=== PATIENT | male | born 1940 | race American Indian/Alaskan Native ===

== ENCOUNTER 2016-03-20 20:05 | Inpatient (IN) | payer MEDICARE ==
[2016-03-20] MEDS ORDERED: ASPIRIN PO ONE (20:35)
[2016-03-20 21:13] LABS: Basophils % (Auto) 0.3 % (0.0-1.8); Eosinophils % (Auto) 1.4 % (0.0-4.3); Hemoglobin 14.1 gm/dl (11.8-15.2); Mean Corpuscular HGB Conc 34 % (32-34); Mean Corpuscular Hemoglobin 29 pg (28-32); Mean Corpuscular Volume 87 fl (84-94); Platelet Count 195 K/mm3 (140-440); Red Blood Count 4.82 M/mm3 (3.65-5.03); Red Cell Distribution Width 14.5 % (13.2-15.2); White Blood Count 5.5 K/mm3 (4.5-11.0)
--- NOTE | 2016-03-20 21:16 | Emergency Department Report ---
ED Chest Pain HPI - General Chief Complaint: Arrhythmia/Palpitations Stated Complaint: PALPITATIONS Time Seen by Provider: 03/20/16 20:28 Source: patient, EMS Mode of arrival: Stretcher Limitations: No Limitations - History of Present Illness Initial Comments: 76-year-old male presents to the emergency department via EMS complaining of palpitations. Patient reports the acute onset of left-sided chest heaviness and palpitations at approximately 7 PM tonight. Pain does not radiate. He reports mild associated shortness of breath, dizziness, and diaphoresis. There was also some mild nausea. Patient denies vomiting or losing consciousness. At this time, the patient reports his symptoms have resolved. There are no other complaints. MD Complaint: chest pain -: Sudden, This evening Time: 19:00 Onset: during rest Pain Location: left chest Pain Radiation: none Severity: moderate Severity scale (0 -10): 0 Quality: heaviness Consistency: now resolved Improves With: nothing Worsens With: nothing re: nausea, diaphoresis, dyspnea Treatments Prior to Arrival: none Aspirin use within the Past 7 Days: (0) No - Related Data Allergies Allergy/AdvReac Type Severity Reaction Status Date / Time No Known Allergies Allergy Verified 03/20/16 20:48 JODIE score - Jodie Score Age > 65: (1) Yes Aspirin use within the Past 7 Days: (0) No 3 or more CAD Risk Factors: (1) Yes 2 or more Angina events in past 24 hrs: (0) No Known CAD with more than 50% Stenosis: (0) No Elevated Cardiac Markers: (0) No ST Deviation Greater than 0.5mm: (0) No JODIE Score: 2 ED Review of Systems ROS: Stated complaint: PALPITATIONS Other details as noted in HPI Comment: All other systems reviewed and negative Constitutional: diaphoresis Respiratory: shortness of breath Cardiovascular: chest pain, syncope (lightheadedness, no loss of consciousness) Gastrointestinal: nausea ED Past Medical Hx - Past Medical History Previous Medical History?: Yes Hx Hypertension: Yes Hx Heart Attack/AMI: Yes Hx Diabetes: Yes - Surgical History Past Surgical History?: Yes Hx Cholecystectomy: Yes Hx Appendectomy: Yes Additional Surgical History: Tonsillectomy - Family History Family history: no significant - Social History Smoking Status: Never Smoker Substance Use Type: None ED Physical Exam - General Limitations: No Limitations General appearance: alert, in no apparent distress - Head Head exam: Present: atraumatic, normocephalic - Eye Eye exam: Present: normal appearance, PERRL, EOMI - ENT ENT exam: Present: normal exam, normal orophraynx, mucous membranes moist - Neck Neck exam: Present: normal inspection, full ROM. Absent: tenderness - Respiratory Respiratory exam: Present: normal lung sounds bilaterally. Absent: respiratory distress - Cardiovascular Cardiovascular Exam: Present: normal rhythm, irregular rhythm, normal heart sounds - GI/Abdominal GI/Abdominal exam: Present: soft, normal bowel sounds. Absent: distended, tenderness - Extremities Exam Extremities exam: Present: normal inspection, full ROM. Absent: tenderness - Back Exam Back exam: Present: normal inspection, full ROM. Absent: tenderness - Neurological Exam Neurological exam: Present: alert, oriented X3. Absent: motor sensory deficit - Skin Skin exam: Present: warm, dry, intact ED Course Vital Signs 03/20/16 20:43 Temperature 98 F Pulse Rate 84 Respiratory 16 Rate Blood Pressure 144/78 O2 Sat by Pulse 95 Oximetry ED Medical Decision Making - Lab Data Result diagrams: 03/20/16 20:53 03/20/16 20:53 - EKG Data -: EKG Interpreted by Me EKG shows normal: sinus rhythm, QRS complexes, ST-T waves Rate: normal - EKG Data When compared to previous EKG there are: no significant change Interpretation: unchanged when compared t (08/31/2012), other (sinus rhythm with marked sinus arrhythmia, first-degree AV block and occasional PVCs) - Medical Decision Making Laboratory results reviewed and discussed with the patient. I spoke with Dr. Gomes, cardiology. Patient is to be admitted by the hospitalist. - Differential Diagnosis ACS, arrhythmia, near syncope Critical care attestation.: If time is entered above; I have spent that time in minutes in the direct care of this critically ill patient, excluding procedure time. ED Disposition Clinical Impression: Near syncope Chest pain Qualifiers: Chest pain type: precordial chest pain Qualified Code(s): R07.2 - Precordial pain Disposition: OP ADMITTED IP TO THIS HOSP Is pt being admited?: Yes Condition: Stable Instructions: Chest Pain (ED) Time of Disposition: 22:04
[2016-03-20 21:30] LABS: Alanine Aminotransferase 15 units/L (7-56); Albumin 3.8 g/dL (3.9-5); Albumin/Globulin Ratio 1.1 %; Alkaline Phosphatase 89 units/L (35-129); Anion Gap 17 mmol/L; BUN/Creatinine Ratio 11.11; Bilirubin,Total 0.8 mg/dL (0.1-1.2); Blood Urea Nitrogen 10 mg/dL (9-20); Calcium 9.4 mg/dL (8.4-10.2); Carbon Dioxide 28 mmol/L (22-30); Chloride 99.9 mmol/L (98-107); Glucose 99 mg/dL (75-100); Potassium 4.2 mmol/L (3.6-5.0); Sodium 141 mmol/L (137-145); Total Protein 7.3 g/dL (6.3-8.2)
--- NOTE | 2016-03-20 22:48 | Admit Criteria Form ---
Admission Criteria Documentation: CARDIOLOGY GRG Clinical Indications for Admission to Inpatient Care ( Place 'X' for any and all applicable criteria): Hospital admission is needed for appropriate care of the patient because of ANY ONE of the following (1): [ ] I. Hemodynamic instability as indicated by ALL of the following (1)(2)(3) (4)(5) [ ]a) Vital signs or other findings not as expected for chronic patient condition or baseline [ ]b) Instability indicated by ANY ONE of the following: [ ]i) Hypotension [ ]ii) Symptomatic Tachycardia unresponsive to treatment ( e.g., analgesia, fluids, sedation as indicated) [ ]iii) Inadequate perfusion indicated by ANY ONE of the following: [ ] 1) Lactic acidosis (> 2 mmol/L) [ ] 2) New abnormal capillary refill (> 3 seconds) [ ] 3) Reduced urine output [ ] 4) New altered mental status [ ]iv) Orthostatic vital sign changes unresponsive to treatment (e.g., fluids) [ ]v) IV inotropic or vasopressor medication required to maintain adequate blood pressure or perfusion [ ] II. Severe heart failure as indicated by ANY ONE of the following(17)(18) [ ]a) Respiratory distress [ ]b) Hypotension [ ]c) Anasarca (refractory to outpatient therapy) [ ]d) Cardiac arrhythmias of immediate concern [ ]e) Myocardial ischemia [ ] III. Cardiac arrhythmias or findings of immediate concern indicated by ANY ONE of the following (19)(20): [ ] a) Heart rhythms that are inherently dangerous or unstable indicated by ANY ONE of the following (21)(22)(23): [ ] i) Resuscitated ventricular fibrillation or cardiac arrest [ ] ii) Ventricular escape rhythm [ ] iii) Sustained ventricular tachycardia (30 seconds or more of ventricular rhythm at greater than 100 beats per minute) [ ] iv) Nonsustained ventricular tachycardia and ANY ONE of the following: [ ] 1) Suspected cardiac ischemia as cause or consequence of ventricular tachycardia [ ] 2) In setting of acute myocarditis [ ] b) Unstable cardiac conduction defects indicated by ANY ONE of the following(23)(24)(25) [ ] i) Type II second-degree atrioventricular block [ ]ii) Third-degree atrioventricular block [ ]iii) New-onset left bundle branch block with suspected myocardial ischemia [ ]c) Any heart rhythm and ANY ONE of the following (21)(22)(26)(27) (28) [ ] i) Continuous long-term ECG monitoring needed (e.g., initiation of drug requiring monitoring for more than 24 hours) [ ] ii) Patient has automatic implanted cardioverter defibrillator that is repeatedly firing, malfunctioning, or in need of immediate adjustment of settings beyond the scope of ambulatory or observation care [ ]d) Heart rhythms of concern due to ANY ONE of the following: [ ] i) Hypotension [ ] ii) Respiratory distress [ ] iii) Association with other significant symptoms (e.g., bradycardia with syncope or ongoing dizziness, supraventricular tachycardia with chest pain (14)(15)(17) [ ] IV. Monitoring for cardiac contusion beyond the scope of observation care needed [A](30)(31)(32) [ ] V. Surgical or device complication (e.g., valve replacement complication , pacemaker dysfunction) (35)(41)(44)(45)(46) [ ] . Inpatient palliative care needed. [B](49) Also use Inpatient Palliative Care Criteria [ ] VII. Nonbacterial thrombotic (marantic) endocarditis (36)(43)(47)(48) [X ] VIII. Cardiology condition, symptom, or finding for which emergency and observation care has failed or are not considered appropriate. [ ] IX. Acute valvular disease requiring inpatient as indicated by ANY ONE of the following (41) [ ]a) Acute valvular regurgitation (42) [ ]b) Noninfectious valvulitis (43) [ ]c) Obstructive valve thrombosis [ ]d) Paravalvular leak [ ]e) Other significant valvular disorder remaining after emergency or observation level of care (as appropriate) [ ]X. Pericardial disease requiring inpatient treatment as indicated by ANY ONE of the following (33)(34)(35)(36)(37) [ ]a) Suspected tamponade (38)(39)(40) [ ]b) Hemopericardium [ ]c) Other significant pericardial disorder remaining after emergency or observation level of care (as appropriate) [ ] XI. Cardiac ischemia beyond scope of emergency and observation care. [ ] XII. Hypertension requiring inpatient treatment as indicated by ANY ONE of the following (6)(7)(8) [ ]a) SBP greater than 220 mm Hg or DBP greater than 120 mmHg despite treatment [ ]b) SBP greater than 140 mm Hg or DBP greater than 100 mm Hg with evidence of acute end organ damage as indicated by ANY ONE of the following [ ] i) Altered mental status [ ] ii) Acute renal failure as indicated by new onset of ANY ONE of the following (9)(10)(11)(12)(13) [ ]1) 3-fold rise in serum creatinine from baseline [ ]2) Serum creatinine greater than 4 mg/dL ( 354 micromoles/L) with acute rise greater than 0.5 mg/dL (44.2 micromoles/L) [ ]3) Reduction of more than 75% in estimated glomerular filtration rate from baseline [ ]4) Estimated glomerular filtration rate less than 35 mL/min/1.73m2 (0.59 mL/sec/1.73m2) in child up to 18 years of age [ ]5) Cessation of urine output indicated by ALL of the following [ ]A. Adequate volume status [ ]B. Inadequate urine output as indicated by ANY ONE of the following [ ]a. Urine output less than 0.3 mL/kg/hr for 24 hours [ ]b. Anuria (urine output less than 0.1 mL/kg/hr) for 12 hours [ ] iii) Aortic dissection [ ] iv) Myocardial Ischemia [ ] v) Left ventricular heart failure [ ]vi) Retinal Hemorrhage [ ]vii) Other significant finding [ ]c) Hypertension in child requiring inpatient treatment as indicated by ALL of the following(14)(15)(16) [ ] i) Outpatient treatment not effective, not available, or not appropriate [ ]ii) SBP or DBP greater than 95th percentile for age [ ]iii) Evidence of acute end organ damage as indicated by ANY ONE of the following [ ]1) Altered mental status [ ]2) Acute renal failure as indicated by new onset of ANY ONE of the following(9)(10)(11)(12)(13) [ ]A. 3-fold rise in serum creatinine from baseline [ ]B. Serum creatinine greater than 4 mg/dL (354 micromoles/L) with acute rise greater than 0.5 mg/dL (44.2 micromoles/L) [ ]C. Reduction of more than 75% in estimated glomerular filtration rate from baseline [ ]D. Estimated glomerular filtration rate less than 35 mL/min/1.73m2 (0.59 mL/sec/1.73m2) in child up to 18 years of age [ ]E. Cessation of urine output indicated by ALL of the following [ ]a. Adequate volume status [ ]b. Inadequate urine output as indicated by ANY ONE of the following [ ]i) Urine output less than 0.3 mL/kg/hr for 24 hours [ ]ii) Anuria ( urine output less than 0.1 mL/kg/hr) for 12 hours [ ]3) Severe headache [ ]4) Visual disturbance [ ]5) Retinal hemorrhage [ ]6) Other significant finding [ ]XIII. Complications of transplanted heart indicated by ANY ONE of the following(61): [ ]a) Acute graft rejection requiring inpatient management (eg, intravenous immunosuppression)(62)(63) [ ]b) Acute graft heart failure indicated by ANY ONE of the following(64): [ ]i) Hemodynamic instability [ ]ii) Cardiac arrhythmias of immediate concern [ ]iii) Pulmonary edema that is very severe (eg, mechanical ventilation needed, imminent or likely, need for 100% oxygen to keep oxygen saturation above 90%) [ ]iv) Pulmonary edema that is persistent as indicated by ALL of the following: [ ]1) New need for oxygen therapy to keep oxygen saturation above 90% (or increased FiO2 need from baseline) [ ]2) Has not improved sufficiently with emergency department or observation care IV diuretics or other heart failure treatments[E] [ ]v) Altered mental status that is severe or persistent [ ]vi) Increased creatinine (new on laboratory test) with reduction of more than 50% in estimated glomerular filtration rate from baseline [ ]vii) Progressively (ongoing) rising creatinine (known from past laboratory test) with reduction of more than 25% in estimated glomerular filtration rate from baseline [ ]viii) Acute renal failure [ ]ix) Acute peripheral ischemia (eg, examination shows pulseless, cool, mottled, or cyanotic extremity) [ ]x) Pulmonary artery catheter monitoring needed [ ]xi) Other sign or symptom of heart failure requiring inpatient treatment (ie, too severe or not responsive to outpatient and observation care treatment) [ ]c) Infection requiring inpatient management (eg, Hemodynamic instability, need for intravenous antimicrobial treatment)(66)(67)(68)(69)(70) [ ]d) Cardiac allograft vasculopathy requiring inpatient management ( eg evidence of cardiac ischemia)(71) [ ]e) Other complication of transplanted heart (eg, stroke, severe pulmonary hypertension, severe valvular dysfunction) requiring inpatient management(72) The original [facility] [employer] content created by [facility] has been revised. The portions of the content which have been revised are identified through the use of italic text or in bold, and [facility] has neither reviewed nor approved the modified material. All other unmodified content is copyright [facility] [employer]. Please see references footnoted in the original [facility] [employer] edition 2016 Admission Criteria Met: Yes
[2016-03-21] MEDS ORDERED: SODIUM CHLORIDE FLUSH SYRINGE 10 ML IV PRN (00:43)
[2016-03-21] MEDS ORDERED: DULERA INHALATION SCH (00:45)
--- NOTE | 2016-03-21 00:49 | History and Physical Report ---
History of Present Illness Date of examination: 03/20/16 Date of admission: 03/20/16 22:05 Chief complaint: chest discomfort History of present illness: 76-year-old male presented to the emergency department via EMS complaining of palpitations. Patient reported the acute onset of left-sided chest heaviness and palpitations at approximately 7 PM tonight. Pain does not radiate. He reports mild associated shortness of breath, dizziness, and diaphoresis. There was also some mild nausea. Patient denies vomiting or losing consciousness. By the time the patient presented to the ED his symptoms have resolved. There are no other complaints. REVIEW OF SYSTEMS: GENERAL: no weight change, no fatigue, no fever HEAD: no head ache EYES: no blurry vision, no acute visual loss EARS: no hearing loss, no discharge, no earache NOSE: no stuffiness, no sneezing, no discharge MOUTH, THROAT AND NECK: no bleeding gums, no sore throat, no swollen neck CARDIAC: no palpitations, no dyspnea on exertion, no orthopnea, no PND, no edema , no chest pain RESPIRATORY: no shortness of breath, no wheeze, no cough, no sputum, no hemoptysis, no asthma GI: no decreased appetite, no nausea, no vomiting, no dysphagia, no diarrhea, no constipation, no abdominal pain URINARY: no change in frequency, no urgency, no polyuria, no hematuria, no incontinence MUSCULOSKELETAL: no muscle weakness, no pain, no joint stiffness NEUROLOGIC: no loss of sensation/numbness, no tingling, no tremors, no weakness/ paralysis HEMATOLOGIC: no anemia, no easy bruising SKIN: no rashes ENDOCRINE: no heat/cold intolerance, no polyuria, no polydipsia, no thyroid problems, no diabetes PSYCHIATRIC: no anxiety, no depression, no suicidal ideations Past History Past Medical History: hypertension, other (paranoia, borderline diabetes mellitus) Past Surgical History: cholecystectomy Social history: full code. denies: smoking, alcohol abuse, prescription drug abuse, IV drug use Family history: denies: CAD, stroke Medications and Allergies Allergies Allergy/AdvReac Type Severity Reaction Status Date / Time No Known Allergies Allergy Verified 03/20/16 20:48 Home Medications Medication Instructions Recorded Confirmed Last Taken Type Aspirin 81 mg PO DAILY 03/20/16 03/20/16 Unknown History Dulera 200 Mcg/5 Mcg Inhaler 200 mcg INHALATION PRN 03/20/16 03/20/16 Unknown History Indomethacin 50 mg PO QID 03/20/16 03/20/16 Unknown History LORazepam 1 mg PO TID 03/20/16 03/20/16 Unknown History Lisinopril 20 mg PO DAILY 03/20/16 03/20/16 Unknown History NIFEdipine 30 mg PO DAILY 03/20/16 03/20/16 Unknown History Vitamin D3 2,000 unit PO DAILY 03/20/16 03/20/16 Unknown History Active Meds: Active Medications Aspirin (Baby Aspirin) 81 mg PO QDAY MARTIN Docusate Sodium (Colace) 100 mg PO BID MARTIN Famotidine (Pepcid) 20 mg PO BID MARTIN Miscellaneous Medication (Dulera 200 Mcg/5 Mcg Inhaler) 200 mcg INHALATION PRN MARTIN Miscellaneous Medication (Lisinopril) 20 mg PO DAILY MARTIN Miscellaneous Medication (Lorazepam) 1 mg PO TID MARTIN Miscellaneous Medication (Nifedipine) 30 mg PO DAILY MARTIN Miscellaneous Medication (Vitamin D3) 2,000 unit PO DAILY MARTIN Sodium Chloride (Sodium Chloride Flush Syringe 10 Ml) 10 ml IV PRN PRN PRN Reason: LINE FLUSH Exam - Physical Exam Narrative exam: Not in cardiopulmonary distress. The patient is obese. Vital signs as documented. Head exam is unremarkable. No scleral icterus . Neck is without jugular venous distension, thyromegaly, or carotid bruits. Lungs are clear to auscultation. Cardiac exam reveals regular rate and Rhythm. First and second heart sounds normal. No murmurs, rubs or gallops. Abdominal exam reveals normal bowel sounds, no masses, no organomegaly and no aortic enlargement. Extremities are nonedematous and both femoral and pedal pulses are normal. CREDIT CHECKER: Alert and oriented 3. No focal weakness. - Constitutional Vitals: Temp Pulse Resp BP Pulse Ox 97.4 F L 74 18 131/93 97 03/21/16 00:21 03/21/16 00:21 03/21/16 00:21 03/21/16 00:21 03/21/16 00:21 Results - Labs CBC & Chem 7: 03/20/16 20:53 03/20/16 20:53 Labs: Laboratory Last Values WBC 5.5 K/mm3 (4.5-11.0) 03/20/16 20:53 RBC 4.82 M/mm3 (3.65-5.03) 03/20/16 20:53 Hgb 14.1 gm/dl (11.8-15.2) 03/20/16 20:53 Hct 42.0 % (35.5-45.6) 03/20/16 20:53 MCV 87 fl (84-94) 03/20/16 20:53 MCH 29 pg (28-32) 03/20/16 20:53 MCHC 34 % (32-34) 03/20/16 20:53 RDW 14.5 % (13.2-15.2) 03/20/16 20:53 Plt Count 195 K/mm3 (140-440) 03/20/16 20:53 Lymph % (Auto) 24.0 % (13.4-35.0) 03/20/16 20:53 [place] % (Auto) 13.5 % (0.0-7.3) H 03/20/16 20:53 Eos % (Auto) 1.4 % (0.0-4.3) 03/20/16 20:53 Baso % (Auto) 0.3 % (0.0-1.8) 03/20/16 20:53 Lymph # 1.3 K/mm3 (1.2-5.4) 03/20/16 20:53 [place] # 0.7 K/mm3 (0.0-0.8) 03/20/16 20:53 Eos # 0.1 K/mm3 (0.0-0.4) 03/20/16 20:53 Baso # 0.0 K/mm3 (0.0-0.1) 03/20/16 20:53 Seg Neutrophils % 60.8 % (40.0-70.0) 03/20/16 20:53 Seg Neutrophils # 3.4 K/mm3 (1.8-7.7) 03/20/16 20:53 Sodium 141 mmol/L (137-145) 03/20/16 20:53 Potassium 4.2 mmol/L (3.6-5.0) 03/20/16 20:53 Chloride 99.9 mmol/L (98-107) 03/20/16 20:53 Carbon Dioxide 28 mmol/L (22-30) 03/20/16 20:53 Anion Gap 17 mmol/L 03/20/16 20:53 BUN 10 mg/dL (9-20) 03/20/16 20:53 Creatinine 0.9 mg/dL (0.8-1.5) 03/20/16 20:53 Estimated GFR > 60 ml/min 03/20/16 20:53 BUN/Creatinine Ratio 11.11 % 03/20/16 20:53 Glucose 99 mg/dL (75-100) 03/20/16 20:53 Calcium 9.4 mg/dL (8.4-10.2) 03/20/16 20:53 Magnesium 2.0 mg/dL (1.7-2.3) 03/20/16 20:53 Total Bilirubin 0.8 mg/dL (0.1-1.2) 03/20/16 20:53 AST 24 units/L (5-40) 03/20/16 20:53 ALT 15 units/L (7-56) 03/20/16 20:53 Alkaline Phosphatase 89 units/L (35-129) 03/20/16 20:53 Troponin T < 0.010 ng/mL (0.00-0.029) 03/20/16 20:53 Total Protein 7.3 g/dL (6.3-8.2) 03/20/16 20:53 Albumin 3.8 g/dL (3.9-5) L 03/20/16 20:53 Albumin/Globulin Ratio 1.1 % 03/20/16 20:53 - Imaging and Cardiology EKG: image reviewed (SR , with first degree AVB with occasional PVCs) Assessment and Plan Assessment and plan: Chest discomfort to r/o acs HTN obesity - serial EKG send cardiac enzymes - [facility] - Aspirin - Restart his home blood pressure medications DVT prophylaxis: on Heparin Disposition: admit to telemetry VTE prophylaxis?: Chemical Plan of care discussed with patient/family: Yes
[2016-03-21 05:58] LABS: Creatine Kinase MB 1.9 ng/mL (0.0-4.0)
[2016-03-21 06:03] LABS: Creatine Kinase 101 units/L (55-170)
[2016-03-21] MEDS: BROVANA NEBU IH SCH ×2 (08:10→19:18)
[2016-03-21] MEDS: PULMICORT IH SCH ×2 (08:10→19:18)
[2016-03-21 08:23] LABS: Creatine Kinase MB 1.8 ng/mL (0.0-4.0)
[2016-03-21 08:24] LABS: Creatine Kinase 99 units/L (55-170)
[2016-03-21] MEDS: ATIVAN PO SCH ×3 (08:45→20:58)
[2016-03-21] MEDS: COLACE PO SCH ×2 (09:00→20:59)
[2016-03-21] MEDS: PROCARDIA XL PO SCH (09:00)
[2016-03-21] MEDS: VITAMIN D3 PO SCH (09:00)
[2016-03-21] MEDS: PEPCID PO SCH ×2 (09:00→21:00)
[2016-03-21] MEDS: ZESTRIL PO SCH (09:01)
--- NOTE | 2016-03-21 09:32 | Progress Note ---
Assessment and Plan Assessment and plan: 1. Chest pain serial trops negative, stress test in am 2. HTN well controlled, continue home meds 3. COPD stable, continue inhalers History Interval history: chest pain has now resolved, no complaints today. Hospitalist Physical - Constitutional Vitals: Temp Pulse Resp BP Pulse Ox 98.3 F 66 18 134/72 96 03/21/16 07:09 03/21/16 09:01 03/21/16 08:20 03/21/16 09:01 03/21/16 07:09 General appearance: Present: no acute distress - EENT Eyes: Present: PERRL, EOM intact ENT: hearing intact, clear oral mucosa, dentition normal - Neck Neck: Present: supple, normal ROM - Respiratory Respiratory effort: normal Respiratory: negative: CTA - Cardiovascular Rhythm: regular Heart Sounds: Present: S1 & S2 - Extremities Extremities: no ischemia, No edema Peripheral Pulses: within normal limits - Abdominal General gastrointestinal: soft, non-tender, non-distended - Integumentary Integumentary: Present: clear, warm, dry - Psychiatric Psychiatric: appropriate mood/affect - Neurologic Neurologic: CNII-XII intact, moves all extremities Results - Labs CBC & Chem 7: 03/20/16 20:53 03/20/16 20:53 Labs: Laboratory Last Values WBC 5.5 K/mm3 (4.5-11.0) 03/20/16 20:53 RBC 4.82 M/mm3 (3.65-5.03) 03/20/16 20:53 Hgb 14.1 gm/dl (11.8-15.2) 03/20/16 20:53 Hct 42.0 % (35.5-45.6) 03/20/16 20:53 MCV 87 fl (84-94) 03/20/16 20:53 MCH 29 pg (28-32) 03/20/16 20:53 MCHC 34 % (32-34) 03/20/16 20:53 RDW 14.5 % (13.2-15.2) 03/20/16 20:53 Plt Count 195 K/mm3 (140-440) 03/20/16 20:53 Lymph % (Auto) 24.0 % (13.4-35.0) 03/20/16 20:53 [place] % (Auto) 13.5 % (0.0-7.3) H 03/20/16 20:53 Eos % (Auto) 1.4 % (0.0-4.3) 03/20/16 20:53 Baso % (Auto) 0.3 % (0.0-1.8) 03/20/16 20:53 Lymph # 1.3 K/mm3 (1.2-5.4) 03/20/16 20:53 [place] # 0.7 K/mm3 (0.0-0.8) 03/20/16 20:53 Eos # 0.1 K/mm3 (0.0-0.4) 03/20/16 20:53 Baso # 0.0 K/mm3 (0.0-0.1) 03/20/16 20:53 Seg Neutrophils % 60.8 % (40.0-70.0) 03/20/16 20:53 Seg Neutrophils # 3.4 K/mm3 (1.8-7.7) 03/20/16 20:53 Sodium 141 mmol/L (137-145) 03/20/16 20:53 Potassium 4.2 mmol/L (3.6-5.0) 03/20/16 20:53 Chloride 99.9 mmol/L (98-107) 03/20/16 20:53 Carbon Dioxide 28 mmol/L (22-30) 03/20/16 20:53 Anion Gap 17 mmol/L 03/20/16 20:53 BUN 10 mg/dL (9-20) 03/20/16 20:53 Creatinine 0.9 mg/dL (0.8-1.5) 03/20/16 20:53 Estimated GFR > 60 ml/min 03/20/16 20:53 BUN/Creatinine Ratio 11.11 % 03/20/16 20:53 Glucose 99 mg/dL (75-100) 03/20/16 20:53 Calcium 9.4 mg/dL (8.4-10.2) 03/20/16 20:53 Magnesium 2.0 mg/dL (1.7-2.3) 03/20/16 20:53 Total Bilirubin 0.8 mg/dL (0.1-1.2) 03/20/16 20:53 AST 24 units/L (5-40) 03/20/16 20:53 ALT 15 units/L (7-56) 03/20/16 20:53 Alkaline Phosphatase 89 units/L (35-129) 03/20/16 20:53 Total Creatine Kinase 99 units/L (55-170) 03/21/16 06:50 CK-MB (CK-2) 1.8 ng/mL (0.0-4.0) 03/21/16 06:50 CK-MB (CK-2) Rel Index 1.8 (0-4) 03/21/16 06:50 Troponin T < 0.010 ng/mL (0.00-0.029) 03/21/16 06:50 Total Protein 7.3 g/dL (6.3-8.2) 03/20/16 20:53 Albumin 3.8 g/dL (3.9-5) L 03/20/16 20:53 Albumin/Globulin Ratio 1.1 % 03/20/16 20:53 Triglycerides 91 mg/dL (2-149) 03/21/16 00:03 Cholesterol 184 mg/dL (50-199) 03/21/16 00:03 LDL Cholesterol Direct 106 mg/dL (50-130) 03/21/16 00:03 HDL Cholesterol 60 mg/dL (40-59) H 03/21/16 00:03 Cholesterol/HDL Ratio 3.06 % 03/21/16 00:03
--- NOTE | 2016-03-21 10:03 | Consultation ---
History of Present Illness Consult date: 03/21/16 Consult reason: chest pain History of present illness: This is a 76 year old obese -[place] male who is presenting with substernal chest pain at rest. He denies any exertional chest pain. He denies any diaphoresis nausea or vomiting or radiation of pain. Pain was described as a 5/10. Past History Past Medical History: hypertension, other (paranoia, borderline diabetes mellitus) Past Surgical History: cholecystectomy Social history: full code. denies: smoking, alcohol abuse, prescription drug abuse, IV drug use Family history: denies: CAD, stroke Medications and Allergies Allergies Allergy/AdvReac Type Severity Reaction Status Date / Time No Known Allergies Allergy Verified 03/20/16 20:48 Home Medications Medication Instructions Recorded Confirmed Last Taken Type Aspirin 81 mg PO DAILY 03/20/16 03/20/16 Unknown History Dulera 200 Mcg/5 Mcg Inhaler 200 mcg INHALATION PRN 03/20/16 03/20/16 Unknown History Indomethacin 50 mg PO QID 03/20/16 03/20/16 Unknown History LORazepam 1 mg PO TID 03/20/16 03/20/16 Unknown History Lisinopril 20 mg PO DAILY 03/20/16 03/20/16 Unknown History NIFEdipine 30 mg PO DAILY 03/20/16 03/20/16 Unknown History Vitamin D3 2,000 unit PO DAILY 03/20/16 03/20/16 Unknown History Active Meds: Active Medications Arformoterol Tartrate (Brovana Nebu) 15 mcg [facility] Q12HRT [facility] Last Admin: 03/21/16 08:10 Dose: 15 mcg Aspirin (Baby Aspirin) 81 mg PO QDAY [facility] Budesonide (Pulmicort) 1 mg IH Q12HRT [facility] Last Admin: 03/21/16 08:10 Dose: 1 mg Cholecalciferol (Vitamin D3) 2,000 unit PO DAILY [facility] Last Admin: 03/21/16 09:00 Dose: 2,000 unit Docusate Sodium (Colace) 100 mg PO BID [facility] Last Admin: 03/21/16 09:00 Dose: 100 mg Famotidine (Pepcid) 20 mg PO BID [facility] Last Admin: 03/21/16 09:00 Dose: 20 mg Lisinopril (Zestril) 20 mg PO DAILY [facility] Last Admin: 03/21/16 09:01 Dose: 20 mg Lorazepam (Ativan) 1 mg PO TID [facility] Last Admin: 03/21/16 08:45 Dose: 1 mg Nifedipine (Procardia Xl) 30 mg PO DAILY [facility] Last Admin: 03/21/16 09:00 Dose: 30 mg Sodium Chloride (Sodium Chloride Flush Syringe 10 Ml) 10 ml IV PRN PRN PRN Reason: LINE FLUSH Review of Systems Cardiovascular: chest pain Physical Examination Vital Signs Temp Pulse Resp BP Pulse Ox 98 F 84 16 144/78 95 03/20/16 20:43 03/20/16 20:43 03/20/16 20:43 03/20/16 20:43 03/20/16 20:43 General appearance: no acute distress, obese HEENT: Positive: PERRL, Normocephaly, Mucus Membranes Moist Neck: Positive: neck supple, trachea midline. Negative: JVD/HJR Cardiac: Positive: Reg Rate and Rhythm, S1/S2, PMI, Laterally Displaced Lungs: Positive: clear to auscultation, No Wheeze, Rales, Rhonchi Neuro: Positive: Grossly Intact, No Lateralizing Findings Abdomen: Positive: Soft, Active Bowel Sounds Extremities: Present: normal. Absent: edema Results 03/20/16 20:53 03/20/16 20:53 Cardiac Enzymes 03/21/16 03/21/16 Range/Units 04:37 06:50 CK-MB (CK-2) 1.9 1.8 (0.0-4.0) ng/mL Lipids 03/21/16 Range/Units 00:03 Triglycerides 91 (2-149) mg/dL Cholesterol 184 (50-199) mg/dL HDL Cholesterol 60 H (40-59) mg/dL Cholesterol/HDL Ratio 3.06 % - EKG Interpretation EKG: sinus rhythm Assessment and Plan 1. Substernal chest pain rule out ischemic coronary artery disease. 2. Essential hypertension 3. Type 2 Diabetes Mellitus. 4. Obesity Plan. Patient is currently stable serial troponin levels are normal we will obtain an echocardiogram to assess global and regional LV function and myocardial perfusion stress imaging to rule out ischemic coronary artery disease
[2016-03-21] MEDS: DEEP SEA NS SCH ×2 (18:05→21:00)
[2016-03-22] MEDS ORDERED: TYLENOL PO PRN (06:35)
[2016-03-22] MEDS ORDERED: LEXISCAN IV ONE ×2 (07:59→08:09)
[2016-03-22] MEDS: PULMICORT IH SCH (08:12)
[2016-03-22] MEDS: BROVANA NEBU IH SCH (08:12)
[2016-03-22] MEDS ORDERED: BABY ASPIRIN PO SCH (10:00)
--- NOTE | 2016-03-22 10:17 | Progress Note ---
Assessment and Plan 1. Precordial chest pains. rule out ischemic CAD 2. Essential hypertension 3. Type 2 Diabetes Mellitus. 4. Obesity Plan. Patient is stable and Lexiscan MPI done tolerated well . Check results later. Subjective Date of service: 03/22/16 Principal diagnosis: Chest pains Interval history: No cardiac symptoms since last visit. Objective Vital Signs Temp Pulse Pulse Pulse Resp Resp BP 03/22/16 07:45 69 18 03/22/16 07:35 68 18 03/22/16 07:02 97.5 F L 66 20 132/81 03/22/16 06:00 57 L 03/22/16 04:53 98.2 F 62 18 141/84 03/21/16 23:57 97.6 F 94 H 20 149/90 03/21/16 19:59 97.7 F 74 18 128/86 03/21/16 19:40 64 20 03/21/16 19:19 74 20 03/21/16 16:32 97.2 F L 80 20 134/73 03/21/16 14:00 61 03/21/16 11:56 97.2 F L 78 20 132/70 Pulse Ox 03/22/16 07:45 03/22/16 07:35 03/22/16 07:02 97 03/22/16 06:00 03/22/16 04:53 98 03/21/16 23:57 96 03/21/16 19:59 98 03/21/16 19:40 03/21/16 19:19 03/21/16 16:32 97 03/21/16 14:00 03/21/16 11:56 96 - Physical Examination HEENT: Positive: PERRL, Normocephaly, Mucus Membranes Moist Neck: Positive: neck supple, trachea midline. Negative: JVD/HJR Cardiac: Positive: Regular Rate, S1/S2, PMI, Laterally Displaced Lungs: Positive: clear to auscultation, No Wheeze, Rales, Rhonchi Neuro: Positive: Grossly Intact, No Lateralizing Findings Abdomen: Positive: Soft, Active Bowel Sounds Extremities: Present: normal. Absent: edema - Imaging and Cardiology EKG: image reviewed (SR , with first degree AVB with occasional PVCs)
[2016-03-22] MEDS: PROCARDIA XL PO SCH (11:13)
[2016-03-22] MEDS: PEPCID PO SCH (11:13)
[2016-03-22] MEDS: COLACE PO SCH (11:14)
[2016-03-22] MEDS: ZESTRIL PO SCH (11:14)
[2016-03-22] MEDS: VITAMIN D3 PO SCH (11:14)
[2016-03-22 12:09] VITALS: BP 140/87
--- NOTE | 2016-03-22 12:57 | Discharge Summary ---
Providers - Providers Date of Admission: 03/20/16 22:05 Attending physician: MIRZA ENCISO MD 03/21/16 Consult to Cardiac Rehabilitation [CONS] Routine Reason For Exam: Phase I Primary care physician: GEOVANI ORTIZ MD Hospitalization Condition: Stable Hospital course: 76M w pmh of htn who presented with Chest pain. ACS was ruled out via serial troponins, he went on to have a stress test which was negative. Chest pain was most likely musculoskeletal, CP resolved during his hospital stay. Discharge Dx atypical chest pain htn Disposition: DISCHARGED TO HOME OR SELFCARE Time spent for discharge: 35 minutes Core Measure Documentation - Palliative Care Palliative Care/ Comfort Measures: Not Applicable - Core Measures Any of the following diagnoses?: none Exam - Constitutional Vitals: Temp Pulse Resp BP Pulse Ox 98.4 F 90 20 140/87 97 03/22/16 12:00 03/22/16 12:00 03/22/16 12:00 03/22/16 12:00 03/22/16 12:00 General appearance: Present: no acute distress, well-nourished - EENT Eyes: Present: PERRL ENT: hearing intact, clear oral mucosa - Neck Neck: Present: supple, normal ROM - Respiratory Respiratory effort: normal Respiratory: bilateral: CTA - Cardiovascular Heart Sounds: Present: S1 & S2. Absent: rub, click - Extremities Extremities: pulses symmetrical, No edema Peripheral Pulses: within normal limits - Abdominal General gastrointestinal: Present: soft, non-tender, non-distended, normal bowel sounds Male genitourinary: Present: normal - Integumentary Integumentary: Present: clear, warm, dry - Musculoskeletal Musculoskeletal: gait normal, strength equal bilaterally - Psychiatric Psychiatric: appropriate mood/affect, intact judgment & insight - Neurologic Neurologic: CNII-XII intact, moves all extremities Plan Follow up with: PRIMARY CAREMD [Primary Care Provider] - 3-5 Days
--- NOTE | 2016-03-23 21:20 | Treadmill Report ---
THALLIUM STRESS TEST LEFT VENTRICLE: Left ventricular chamber size is within normal. Perfusion study demonstrates fairly homogeneous uptake of the tracer in all segments, no significant defects identified. Gated analysis reports normal left ventricular systolic function, ejection fraction 58%. CONCLUSION: Normal myocardial perfusion study. JOB# [id number] CA/NTS
== END 2016-03-22 17:12 | disposition home or self-care (01) | DRG 313 ==
LOC: ED 20:05 → 4A 22:05
PROVIDERS: ADMIT Internal Medicine; ATTEND Internal Medicine
DX: R07.89 Other chest pain (principal); E11.9 Type 2 diabetes mellitus without complications; I10 Essential (primary) hypertension; J44.9 Chronic obstructive pulmonary disease, unspecified; E66.9 Obesity, unspecified; I25.2 Old myocardial infarction; Z90.89 Acquired absence of other organs; Z90.49 Acquired absence of other specified parts of digestive tract; Z68.27 Body mass index [BMI] 27.0-27.9, adult; Z79.899 Other long term (current) drug therapy
CPT/HCPCS: 36415; 78452; 80053; 80061; 82550; 82553; 82962; 83735; 84484; 85025; 93005; 93010; 93017; 94640; 99285; A9502; J2785

== ENCOUNTER 2020-12-22 01:40 | Emergency (ER) | payer MEDICARE ==
[2020-12-22 01:55] VITALS: BP 128/72
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
[2020-12-22 04:14] LABS: Basophils % (Auto) 0.3 % (0.0-1.8); Hematocrit 36.7 % (35.5-45.6); Hemoglobin 12.5 gm/dl (11.8-15.2); Lymphocytes # (Auto) 1.5 K/mm3 (1.2-5.4); Lymphocytes % (Auto) 38.5 % (13.4-35.0); Mean Corpuscular HGB Conc 34 % (32-34); Mean Corpuscular Volume 91 fl (84-94); Monocytes # (Auto) 0.5 K/mm3 (0.0-0.8); Platelet Count 165 K/mm3 (140-440); Red Blood Count 4.02 M/mm3 (3.65-5.03); Red Cell Distribution Width 14.3 % (13.2-15.2)
[2020-12-22 04:39] LABS: Alanine Aminotransferase 9 units/L (7-56); Albumin 3.9 g/dL (3.9-5); BUN/Creatinine Ratio 17; Blood Urea Nitrogen 15 mg/dL (9-20); Calcium 9.9 mg/dL (8.4-10.2); Hemolysis Index 7
[2020-12-22 04:44] LABS: Bilirubin,Direct < 0.2 mg/dL (0-0.2)
--- NOTE | 2020-12-22 04:44 | XRay Report ---
CHEST 2 VIEWS INDICATION / CLINICAL INFORMATION: sob. COMPARISON: 04/19/2016 FINDINGS: SUPPORT DEVICES: None. HEART / MEDIASTINUM: No significant abnormality. LUNGS / PLEURA: No significant pulmonary or pleural abnormality. No pneumothorax. ADDITIONAL FINDINGS: Metallic densities seen overlying the left inferior neck and left hemiabdomen, u nchanged. IMPRESSION: 1. No acute findings. Signer Name: Chucky Cook DO Signed: 12/22/2020 4:40 AM Workstation Name: [id number]
[2020-12-22 05:49] LABS: Bilirubin,Urine NEG (Negative); Blood,Urine NEG (Negative); Color,Urine Straw (Yellow); Protein,Urine <15 mg/dL mg/dL (Negative); Urobilinogen,Urine < 2.0 mg/dL (<2.0); WBC,Urine < 1.0 /HPF (0.0-6.0)
[2020-12-22 05:56] LABS: Amphetamine Screen,Urine PRESUMPTIVE NEGATIVE; Benzodiazepines Screen,Urine PRESUMPTIVE NEGATIVE; Cannabinoid Screen,Urine PRESUMPTIVE NEGATIVE; Cocaine Screen,Urine PRESUMPTIVE NEGATIVE; Methadone Screen,Urine PRESUMPTIVE NEGATIVE; Opiate Screen,Urine PRESUMPTIVE NEGATIVE
== END 2020-12-22 08:27 | disposition home or self-care (01) ==
LOC: ED 01:40
DX: R06.00 Dyspnea, unspecified (principal); I10 Essential (primary) hypertension; J45.909 Unspecified asthma, uncomplicated; Z90.49 Acquired absence of other specified parts of digestive tract; Z90.89 Acquired absence of other organs
CPT/HCPCS: 36415; 71046; 80048; 80076; 80307; 80320; 81001; 85025; 99283; G0480

== ENCOUNTER 2021-07-02 06:30 | Inpatient (IN) | payer MEDICARE, BC ==
[2021-07-02] MEDS ORDERED: SUCCINYLCHOLINE CHLORIDE 200 MG/10 ML INJ MDV ONE (06:36)
[2021-07-02] MEDS ORDERED: ETOMIDATE 20 MG/10 ML INJ IV ONE (06:36)
[2021-07-02] MEDS ORDERED: LIDOCAINE PF 100 MG/5 ML (CARDIAC SYRINGE) IV ONE ×2 (06:38→06:39)
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
[2021-07-02] MEDS ORDERED: LORazepam 2 MG/ML VIAL IV ONE (07:22)
[2021-07-02 07:56] LABS: ABG Base Excess 1.4 mmol/L (-2.0-3.0); ABG HCO3 25.8 mmol/L (20.0-26.0); ABG Methemoglobin 0.6 % (0.0-1.5); ABG Oxygen Saturation 99.6 % (95.0-99.0); ABG PCO2 40.3 mm Hg; ABG PH 7.426 pH Units (7.350-7.450); ABG PO2 575.4 mm Hg (80.0-90.0)
[2021-07-02] MEDS ORDERED: MIDAZOLAM/NS Drip 100mg/100ml 100 MG/100 ML BAG IV SCH (08:00)
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
[2021-07-02 08:16] LABS: Bilirubin,Urine NEG (Negative); Blood,Urine NEG (Negative); Color,Urine Yellow (Yellow); Protein,Urine <15 mg/dL mg/dL (Negative); Urobilinogen,Urine < 2.0 mg/dL (<2.0)
[2021-07-02 08:24] LABS: Amphetamine Screen,Urine Negative; Benzodiazepines Screen,Urine Negative; Cannabinoid Screen,Urine Negative; Cocaine Screen,Urine Negative; Methadone Screen,Urine Negative; Opiate Screen,Urine Negative
[2021-07-02] MEDS ORDERED: diphenhydrAMINE 50 MG/ML VIAL IV ONE (08:38)
[2021-07-02] MEDS ORDERED: diphenhydrAMINE 50 MG/ML VIAL ONE (08:39)
[2021-07-02 08:46] LABS: RBC,Urine < 1.0 /HPF (0.0-6.0); WBC,Urine < 1.0 /HPF (0.0-6.0)
--- NOTE | 2021-07-02 09:35 | Cat Scan Report ---
CT HEAD/BRAIN WO CON INDICATION / CLINICAL INFORMATION: 81 years Male; Altered mental status. TECHNIQUE: Routine CT head without contrast. All CT scans at this location are performed using CT dos e reduction for ALARA by means of automated exposure control. COMPARISON: 11/21/2011 FINDINGS: BRAIN / INTRACRANIAL CONTENTS: No acute hemorrhage, mass effect, midline shift, hydrocephalus, or acu te, large territorial infarct. Moderate cerebral and cerebellar atrophy. There are moderate areas of decreased attenuation in the white matter of the cerebral hemispheres. Th catherine are nonspecific findings and may be related to microangiopathy (hypertension, diabetes, atheroscl erosis), given the patient's age. It might be difficult to evaluate for small areas of ischemia witho ut diffusion imaging by MRI. CRANIOCERVICAL JUNCTION: No significant abnormality. ORBITS: No significant abnormality of visualized orbits. SINUSES / MASTOIDS: Visualized paranasal sinuses and mastoid air cells are essentially clear. Right n david tube and endotracheal tube are noted and partially imaged. ADDITIONAL FINDINGS: Atherosclerotic disease is seen in the anterior and posterior circulation. IMPRESSION: No acute intracranial process is identified. Moderate volume loss and chronic white matter changes which are likely appropriate for this person's age. Signer Name: Luke Melendez Jr, MD Signed: 07/02/2021 9:30 AM Workstation Name: [id number]
--- NOTE | 2021-07-02 10:49 | XRay Report ---
ABDOMEN 1 VIEW(S) INDICATION / CLINICAL INFORMATION: NG placement. COMPARISON: None available. FINDINGS: TUBES / LINES: NG tube tip and side port are in the proximal stomach. BOWEL GAS PATTERN: No significant abnormality. FREE AIR / EXTRALUMINAL GAS: None seen. ADDITIONAL FINDINGS: No significant additional findings. IMPRESSION: 1. NG tube tip and side port in the proximal stomach. Signer Name: Khoa Rivero MD Signed: 07/02/2021 10:44 AM Workstation Name: [id number]
[2021-07-02 11:22] LABS: Alanine Aminotransferase 11 units/L (7-56); Albumin 3.8 g/dL (3.9-5); BUN/Creatinine Ratio 17; Blood Urea Nitrogen 15 mg/dL (9-20); Calcium 9.8 mg/dL (8.4-10.2); Hemolysis Index 18
[2021-07-02 11:29] LABS: Basophils # (Auto) 0.1 K/mm3 (0.0-0.1); Basophils % (Auto) 1.3 % (0.0-1.8); Eosinophils % (Auto) 0.4 % (0.0-4.3); Hematocrit 35.9 % (35.5-45.6); Hemoglobin 12.2 gm/dl (11.8-15.2); Lymphocytes # (Auto) 1.4 K/mm3 (1.2-5.4); Lymphocytes % (Auto) 31.1 % (13.4-35.0); Mean Corpuscular HGB Conc 34 % (32-34); Mean Corpuscular Volume 90 fl (84-94); Monocytes # (Auto) 0.4 K/mm3 (0.0-0.8); Monocytes % (Auto) 8.5 % (0.0-7.3); Platelet Count 178 K/mm3 (140-440); Red Blood Count 4.01 M/mm3 (3.65-5.03)
[2021-07-02 11:36] LABS: Free T4 (Free Thyroxine) 1.34 ng/dL (0.76-1.46)
[2021-07-02 11:40] LABS: INR 0.99 (0.87-1.13)
[2021-07-02 11:41] LABS: Partial Thromboplastin Time 28.3 Sec. (24.2-36.6)
[2021-07-02 11:54] LABS: Creatine Kinase MB 2.2 ng/mL (0.0-4.0)
--- NOTE | 2021-07-02 14:07 | Consultation ---
History of Present Illness Consult date: 07/02/21 Requesting physician: RABIA COHN Reason for consult: other (Acute Hypoxemic Respiratory Failure) History of present illness: PULMONARY/CCM CONSULT NOTE (Full dictation # [id number]) Please see dictated notes for full details Medications and Allergies Allergies Allergy/AdvReac Type Severity Reaction Status Date / Time No Known Allergies Allergy Unverified 07/02/21 07:28 Home Medications Medication Instructions Recorded Confirmed Last Taken Type Aspirin [Adult Low Dose Aspirin EC] 81 mg PO DAILY 08/31/17 08/31/17 Unknown History Cholecalciferol (Vitamin D3) 2,000 unit PO QDAY 08/31/17 08/31/17 Unknown History [Vitamin D3] NIFEdipine XL [Procardia Xl] 30 mg PO HS 08/31/17 08/31/17 Unknown History Active Meds: Active Medications MIDAZOLAM/NS Drip 100mg/100ml (Midazolam/Ns Drip 100mg/100ml) 100 mg in 100 mls @ 1 mls/hr IV TITR MARTIN; Protocol Last Titration: 07/02/21 09:08 Dose: 2 mg/hr, 2 mls/hr Physical Examination Vital signs: Vital Signs Pulse BP Pulse Ox 51 L 149/75 100 07/02/21 07:02 07/02/21 07:02 07/02/21 07:02 Results - Laboratory Findings CBC and BMP: 07/02/21 10:45 07/02/21 10:45 ABG ABG pH 7.426 pH Units (7.350-7.450) 07/02/21 07:42 ABG pCO2 40.3 mm Hg 07/02/21 07:42 ABG pO2 575.4 mm Hg (80.0-90.0) H 07/02/21 07:42 ABG O2 Saturation 99.6 % (95.0-99.0) H 07/02/21 07:42 PT/INR, D-dimer PT 14.2 Sec. (12.2-14.9) 07/02/21 10:45 INR 0.99 (0.87-1.13) 07/02/21 10:45 Abnormal lab findings: Abnormal Labs 07/02/21 07/02/21 07/02/21 07:42 10:45 10:45 [place] % (Auto) 8.5 H ABG pO2 575.4 H ABG O2 Saturation 99.6 H ABG Hemoglobin 12.7 L Chloride 107.7 H Ammonia Total Protein 6.1 L Albumin 3.8 L 07/02/21 10:45 [place] % (Auto) ABG pO2 ABG O2 Saturation ABG Hemoglobin Chloride Ammonia 17.0 L Total Protein Albumin
[2021-07-02] MEDS ORDERED: IPRATROPIUM/ALBUTEROL SULFATE 3 ML AMPUL.NEB IH PRN (14:16)
[2021-07-02] MEDS ORDERED: MORPHINE 2 MG/1 ML INJ IV PRN (14:30)
[2021-07-02] MEDS ORDERED: PROMETHAZINE 25 MG RECT SUPP PR PRN (14:30)
[2021-07-02] MEDS ORDERED: ONDANSETRON 4 MG/2 ML INJ IV PRN (14:30)
[2021-07-02] MEDS ORDERED: METOCLOPRAMIDE 10 MG/2 ML INJ IV PRN (14:30)
[2021-07-02] MEDS ORDERED: ACETAMINOPHEN 325 MG TAB PO PRN (14:30)
[2021-07-02] MEDS ORDERED: HYDROmorphone 1 MG/1 ML INJ IV PRN (14:30)
[2021-07-02] MEDS ORDERED: SODIUM CHLORIDE 0.9% 1000 ML 1,000 ML IV SCH (14:30)
[2021-07-02] MEDS ORDERED: methylPREDNISolone Sod Succinate 125 MG/2 ML INJ IV SCH ×2 (15:00→16:00)
[2021-07-02] MEDS ORDERED: AZITHROMYCIN/NS 500 MG/250 ML 500 MG/250 ML BAG IV SCH (15:00)
[2021-07-02] MEDS: HEPARIN 5,000 UNIT/1 ML VIAL SUB-Q SCH ×2 (15:07→21:24)
[2021-07-02] MEDS: FAMOTIDINE 20 MG/2 ML INJ IV SCH ×2 (15:07→21:24)
[2021-07-02] MEDS ORDERED: cefTRIAXone/NS 2 GM/100 ML 2 GM/100 ML BAG IV SCH (15:30)
[2021-07-02] MEDS ORDERED: IPRATROPIUM/ALBUTEROL SULFATE 3 ML AMPUL.NEB IH SCH (16:00)
[2021-07-02] MEDS ORDERED: fentaNYL 100 MCG/2 ML INJ IV PRN (16:00)
[2021-07-02] MEDS ORDERED: MINERAL OIL/PETROLATUM, WHITE OPHTH OINT 3.5 GM OU PRN (16:00)
[2021-07-02] MEDS ORDERED: LIP THERAPY VASELINE TP PRN (16:00)
[2021-07-02] MEDS ORDERED: fentaNYL DRIP Premix 2,000 MCG/100 ML BAG IV SCH (16:00)
--- NOTE | 2021-07-02 16:47 | Consultation ---
History of Present Illness Consult date: 07/02/21 Requesting physician: VASQUEZ LOVELL Consult reason: cardiac arrest, other (CAD) History of present illness: Chief complaint: Altered mental This is a 81-year-old with unknown past medical history, who has been seen by us previously at the hospital, but does not follow with us outpatient presented to [facility] today via EMS for altered mental status. Information obtained from review of chart. Reportedly, EMS was called to his house when family found him unresponsive, snoring, on the couch. When he arrived to [facility] he was still unresponsive and unable to protect airway, so the decision was made to intubate him. Work-up in the emergency room reveals the patient is andres cardic, with heart rate in the 40s, troponins are negative x1, BNP is negative. Cardiology is consulted for CAD and cardiac arrest. Past History Past Medical History: other (unknown) Medications and Allergies Allergies Allergy/AdvReac Type Severity Reaction Status Date / Time No Known Allergies Allergy Unverified 07/02/21 07:28 Home Medications Medication Instructions Recorded Confirmed Last Taken Type Aspirin [Adult Low Dose Aspirin EC] 81 mg PO DAILY 08/31/17 08/31/17 Unknown History Cholecalciferol (Vitamin D3) 2,000 unit PO QDAY 08/31/17 08/31/17 Unknown History [Vitamin D3] NIFEdipine XL [Procardia Xl] 30 mg PO HS 08/31/17 08/31/17 Unknown History Active Meds: Active Medications Acetaminophen (Acetaminophen 325 Mg Tab) 650 mg PO Q4H PRN PRN Reason: Pain MILD(1-3)/Fever >100.5/URIAS Albuterol (Albuterol 2.5 Mg/3 Ml Nebu) 2.5 mg IH Q3HRT PRN PRN Reason: Wheezing Arformoterol Tartrate (Arformoterol 15 Mcg/2 Ml Nebu) 15 mcg IH Q12HRT MARTIN Budesonide (Budesonide 0.5 Mg/2 Ml Nebu) 0.5 mg IH Q12HRT MARTIN Famotidine (Famotidine 20 Mg/2 Ml Inj) 20 mg IV BID REPLACED BY [facility] Last Admin: 07/02/21 15:07 Dose: 20 mg Fentanyl (Fentanyl 100 Mcg/2 Ml Inj) 50 mcg IV Q10MIN PRN PRN Reason: ANALGESIA Heparin Sodium (Porcine) (Heparin 5,000 Unit/1 Ml Vial) 5,000 unit SUB-Q Q12HR MARTIN Last Admin: 07/02/21 15:07 Dose: 5,000 unit Hydromorphone HCl (Hydromorphone 1 Mg/1 Ml Inj) 0.5 mg IV Q3H PRN PRN Reason: Pain , Severe (7-10) Hydrophilic Ointment (Lip Therapy Vaseline) 1 applic TP Q2H PRN PRN Reason: Dry Lips MIDAZOLAM/NS Drip 100mg/100ml (Midazolam/Ns Drip 100mg/100ml) 100 mg in 100 mls @ 1 mls/hr IV TITR MARTIN; Protocol Last Titration: 07/02/21 09:08 Dose: 2 mg/hr, 2 mls/hr Sodium Chloride (Nacl 0.9% 1000 Ml) 1,000 mls @ 100 mls/hr IV DIRECT MARTIN Azithromycin (Zithromax/Ns) 500 mg in 250 mls @ 250 mls/hr IV Q24H MARTIN Ceftriaxone Sodium (Rocephin/Ns 2 Gm/100 Ml) 2 gm in 100 mls @ 200 mls/hr IV Q24H MARTIN; Protocol Last Admin: 07/02/21 15:07 Dose: 200 mls/hr Fentanyl Citrate (Fentanyl Drip Premix) 2,000 mcg in 100 mls @ 3.629 mls/hr IV TITR MARTIN; Protocol Methylprednisolone Sodium Succinate (Methylprednisolone Sod Succinate 40 Mg/1 Ml Inj) 40 mg IV Q12H MARTIN Metoclopramide HCl (Metoclopramide 10 Mg/2 Ml Inj) 10 mg IV Q6H PRN PRN Reason: Nausea And Vomiting Morphine Sulfate (Morphine 2 Mg/1 Ml Inj) 2 mg IV Q4H PRN PRN Reason: Pain, Moderate (4-6) Multi-Ingred Cream/Lotion/Oil/Oint (Mineral Oil/Petrolatum, White Ophth Oint 3.5 Gm) 1 applic OU Q4H PRN PRN Reason: Dry Eye(s) Ondansetron HCl (Ondansetron 4 Mg/2 Ml Inj) 4 mg IV Q8H PRN PRN Reason: Nausea And Vomiting Promethazine HCl (Promethazine 25 Mg Rect Supp) 25 mg NE Q6H PRN PRN Reason: N/V IF NPO AND NO IV ACCESS Senna/Docusate Sodium (Sennosides/Docusate Sodium 8.6/50 Mg Tab) 1 tab FEEDTUBE BID MARTIN Sodium Chloride (Sodium Chloride 0.9% 10 Ml Flush Syringe) 10 ml IV BID MARTIN Last Admin: 07/02/21 15:07 Dose: 10 ml Sodium Chloride (Sodium Chloride 0.9% 10 Ml Flush Syringe) 10 ml IV PRN PRN PRN Reason: LINE FLUSH Review of Systems ROS unobtainable: due to endotracheal tube, due to mental status Physical Examination Vital Signs Pulse BP Pulse Ox 51 L 149/75 100 07/02/21 07:02 07/02/21 07:02 07/02/21 07:02 General appearance: no acute distress HEENT: Positive: Mucus Membranes Dry Neck: Positive: trachea midline Cardiac: Positive: S1/S2, Bradycardia Lungs: Positive: Decreased Breath Sounds, Ventilated Respirations Neuro: Positive: Other (sedated ; unable to assess) Abdomen: Positive: Active Bowel Sounds Male genitourinary: Positive: deferred Skin: Negative: Rash Extremities: Present: +2 Edema (BLE), Cool (upper extremeties) Results 07/02/21 10:45 07/02/21 10:45 Cardiac Enzymes 07/02/21 Range/Units 10:45 AST 23 (5-40) units/L CK-MB (CK-2) 2.2 (0.0-4.0) ng/mL Coagulation 07/02/21 Range/Units 10:45 PT 14.2 (12.2-14.9) Sec. INR 0.99 (0.87-1.13) APTT 28.3 (24.2-36.6) Sec. CBC 07/02/21 Range/Units 10:45 WBC 4.5 (4.5-11.0) K/mm3 RBC 4.01 (3.65-5.03) M/mm3 Hgb 12.2 (11.8-15.2) gm/dl Hct 35.9 (35.5-45.6) % Plt Count 178 (140-440) K/mm3 Lymph # (Auto) 1.4 (1.2-5.4) K/mm3 [place] # (Auto) 0.4 (0.0-0.8) K/mm3 Eos # (Auto) 0.0 (0.0-0.4) K/mm3 Baso # (Auto) 0.1 (0.0-0.1) K/mm3 Comprehensive Metabolic Panel 07/02/21 Range/Units 10:45 Sodium 145 (137-145) mmol/L Potassium 4.1 (3.6-5.0) mmol/L Chloride 107.7 H (98-107) mmol/L Carbon Dioxide 25 (22-30) mmol/L BUN 15 (9-20) mg/dL Creatinine 0.9 (0.8-1.3) mg/dL Glucose 75 (75-100) mg/dL Calcium 9.8 (8.4-10.2) mg/dL AST 23 (5-40) units/L ALT 11 (7-56) units/L Alkaline Phosphatase 58 (35-129) units/L Total Protein 6.1 L (6.3-8.2) g/dL Albumin 3.8 L (3.9-5) g/dL - Imaging and Cardiology Echo: pending EKG: image reviewed (SB) EKG interpretations - Telemetry EKG Rhythm: Sinus Bradycardia - EKG Sinus rhythms and dysrhythmias: sinus bradycardia (no acute ischemic changes) Assessment and Plan Assessment: Altered Mental Status Acute respiratory failure Bradycardia- SB vs ? CHB ? History of psychiatric illness (per [facility] records) Cardiographics EKG 06/22/21-sinus bradycardia rate 56, prolonged NE interval, no acute ischemic changes. Chest x-ray 07/02/21-ET tube in expected position. There is blunting of the left costophrenic angle characteristic of a small amount of pleural fluid or pleural thickening. Echocardiogram (2017- ef 55-60%). Repeat echo pending Stress test-Lexiscan MPI 09/01/2017: Negative for acute ischemia Recommendations/plan: Check echocardiogram. Troponin negative x1. BNP negative. Electrolytes acceptable. Potassium 4.1, magnesium 2.2 TSH, free T4 acceptable limits. Avoid AV malika blocking agents Consider EP consultation if reversible causes not found for bradycardia Please call if patient becomes hemodynamically unstable. At this time BP acceptable. Thank you for this consultation, we will follow. Patient seen and examined with Dr. Avila, who agrees with assessment and plan of care of this patient. - Patient Problems (1) Altered mental status Current Visit: Yes Status: Acute
[2021-07-02] MEDS ORDERED: ALBUTEROL 2.5 MG/3 ML NEBU IH PRN (17:00)
--- NOTE | 2021-07-02 17:03 | Vascular Lab Report ---
DUPLEX DOPPLER LOWER EXTREMITY VEINS, BILATERAL INDICATION / CLINICAL INFORMATION: Lower extremity swelling; cardiac arrest. TECHNIQUE: Duplex doppler imaging was performed through the veins of both lower extremities using jad ous compression and other maneuvers. COMPARISON: None available. FINDINGS: RIGHT COMMON FEMORAL VEIN: Negative. RIGHT FEMORAL VEIN: Negative. RIGHT POPLITEAL VEIN: Negative. RIGHT CALF VEINS: Negative. LEFT COMMON FEMORAL VEIN: Negative. LEFT FEMORAL VEIN: Negative. LEFT POPLITEAL VEIN: Negative. LEFT CALF VEINS: Negative. ADDITIONAL FINDINGS: None. IMPRESSION: 1. No sonographic evidence for DVT in either lower extremity. Signer Name: Clay Romo MD Signed: 07/02/2021 4:59 PM Workstation Name: [id number]
[2021-07-02] MEDS: ARFORMOTEROL 15 MCG/2 ML NEBU IH SCH (19:56)
[2021-07-02] MEDS: BUDESONIDE 0.5 MG/2 ML NEBU IH SCH (19:56)
[2021-07-02] MEDS: SENNOSIDES/DOCUSATE SODIUM 8.6/50 MG TAB FEEDTUBE SCH (21:24)
[2021-07-03 04:27] LABS: Basophils % (Auto) 0.2 % (0.0-1.8); Hemoglobin 12.6 gm/dl (11.8-15.2); Lymphocytes # (Auto) 0.9 K/mm3 (1.2-5.4); Lymphocytes % (Auto) 11.1 % (13.4-35.0); Mean Corpuscular HGB Conc 34 % (32-34); Mean Corpuscular Volume 90 fl (84-94); Monocytes # (Auto) 0.4 K/mm3 (0.0-0.8); Monocytes % (Auto) 4.6 % (0.0-7.3); Platelet Count 166 K/mm3 (140-440); Red Blood Count 4.14 M/mm3 (3.65-5.03); Red Cell Distribution Width 14.8 % (13.2-15.2)
[2021-07-03] MEDS: methylPREDNISolone Sod Succinate 40 MG/1 ML INJ IV SCH ×2 (04:36→16:29)
[2021-07-03 04:46] LABS: Alanine Aminotransferase 9 units/L (7-56); Albumin 3.7 g/dL (3.9-5); BUN/Creatinine Ratio 16; Blood Urea Nitrogen 14 mg/dL (9-20); Calcium 9.2 mg/dL (8.4-10.2); Hemolysis Index 12
[2021-07-03 05:35] LABS: ABG Base Excess -0.3 mmol/L (-2.0-3.0); ABG HCO3 23.7 mmol/L (20.0-26.0); ABG Methemoglobin 0.7 % (0.0-1.5); ABG Oxygen Saturation 99.1 % (95.0-99.0); ABG PCO2 36.8 mm Hg; ABG PH 7.426 pH Units (7.350-7.450); ABG PO2 176.7 mm Hg (80.0-90.0)
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
--- NOTE | 2021-07-03 07:07 | XRay Report ---
CHEST 1 VIEW 07/03/2021 4:29 AM INDICATION / CLINICAL INFORMATION: follow up respiratory failure. COMPARISON: One view of the chest and KUB from 07/02/2021. FINDINGS: SUPPORT DEVICES: Unchanged. HEART / MEDIASTINUM: Stable. LUNGS / PLEURA: No significant pulmonary abnormality. There are small pleural effusions. No pneumotho rax. ADDITIONAL FINDINGS: No significant additional findings. IMPRESSION: 1. No new acute findings. 2. Additional findings as above. Signer Name: Rosales Weiss MD Signed: 07/03/2021 7:02 AM Workstation Name: [id number]
[2021-07-03] MEDS: ARFORMOTEROL 15 MCG/2 ML NEBU IH SCH ×2 (07:38→20:39)
[2021-07-03] MEDS: BUDESONIDE 0.5 MG/2 ML NEBU IH SCH ×2 (07:38→20:39)
[2021-07-03] MEDS ORDERED: POTASSIUM CHLORIDE 20 MEQ PACKET FEEDTUBE SCH (08:30)
[2021-07-03 09:57] LABS: ABG Base Excess -1.9 mmol/L (-2.0-3.0); ABG HCO3 22.8 mmol/L (20.0-26.0); ABG Methemoglobin 0.6 % (0.0-1.5); ABG Oxygen Saturation 99.2 % (95.0-99.0); ABG PCO2 38.6 mm Hg; ABG PH 7.389 pH Units (7.350-7.450); ABG PO2 184.8 mm Hg (80.0-90.0)
--- NOTE | 2021-07-03 10:36 | Progress Note ---
<JOLANTA SHEETS - Last Filed: 07/03/21 18:52> Assessment and Plan Assessment and plan: This is a 81-year-old male with known past medical history of HTN, Type 2 DM, possible COPD, and GERD admitted for decreased responsiveness requiring ventilatory support. Patient was also found in bradycardia with concern for possible heart block, cardiology is on consulted. Hospital Course to Date: 07/03: Patient is AAO, following commands, on the vent. Off sedation and tolerating PST. This am ABG and CXR noted. Plan for possible extubation today. Patient remains bradycardic this am, possible HB noted on the monitor, VSS. Cardiology is on consult, awaiting their recommendations. Will hold IV antiobio tic for now, patient remains afebrile with no leukocytosis, lactic and procal normal. Assessment and Plan #Acute Hypoxic Respiratory Failure #COPD with Exacerbation #Pleural Effusion - Found unresponsive at home, per family they started CPR - EMS found patient bradycardic and unresponsive - Patient was hypoxic at the time of arrival and also respiratory rate of about 8 - Patient was intubated in the ED for airway protection - AAO, following commands, tolerating PSV - Vent Setting: PSV- 35%,6 PS-10 - AM ABG noted - CCM consulted, appreciate recommendations - Continue IV Steroids and Nebs per CCM - No evidence of any infectious process, will hold empiric IV ABx for now - VAP bundle addressed - Aspiration precaution HOB above 30 - ABG and CXR per CCM - Continue SPO2 monitoring for SPO2 goal above 92% #Bradycardia, possible HB #HTN (hypertension) - Presented with bradycardia - initial EKG unremarkable, showing SB - Patient remains bradycardic this am, appear in HB on the monitor - Repeat EKG pending - BP stable - Cardiology on consult, awaiting recommendations - Continue blood pressure monitor per protocol - PRN antihypertensives for SBP greater than 160 #Acute Encephalopathy-improved - Etiology unclear - Urine drug screen negative, No focus of infection identified - CT head with no acute intracranial abnormality - Patient remains on the vent, off sedation this am - AAO and appriopriate, following commands - Avoid benzodiazepine to reduce the possibility of delirium - Prn analgesia for pain management - Maintenance of sleep-wake cycle #T2DM (type 2 diabetes mellitus) - Check hemoglobin A1c - BG check and SSI Q6hrs - Avoid hypoglycemia #GERD (Gastroesophageal Reflux Disease) - On PPI- Pepcid #Malnutrition - Currently intubated - Bedside swallow post extubation - Consider enteral nutrition if patient fail swallow - Nutrition consulted #DVT Prophylaxis - Heparin SubQ - SCDs to bilateral lower extremities while in bed The high probability of a clinically significant, sudden or life threatening deterioration of the [multiple] system(s) required my full and direct attention, intervention and personal management. The aggregate critical care time was [60] minutes. This time is in addition to time spent performing reported procedures but includes the following: [x] Data Review and interpretation [x] Patient assessment and monitoring of vital signs [x] Documentation [x] Medication orders and management Disposition Plan: ICU Total Time Spent with Patient (Minutes): 60 History Interval history: Patient seen and examined at the bedside. Intubated and off sedation, AAO, appriopriate, following commands. Tolerating PSV this am. EDGAR overnight Hospitalist Physical - Constitutional Vitals: Temp Pulse Resp BP Pulse Ox 97.8 F 42 L 13 155/84 100 07/03/21 07:17 07/03/21 08:00 07/03/21 08:00 07/03/21 08:00 07/03/21 08:00 General appearance: Present: no acute distress, well-nourished - EENT Eyes: Present: PERRL, EOM intact ENT: clear oral mucosa - Neck Neck: Present: normal ROM - Respiratory Respiratory effort: normal Respiratory: bilateral: diminished - Cardiovascular Rhythm: regular Heart Sounds: Present: S1 & S2 - Extremities Extremities: no ischemia, pulses intact, pulses symmetrical Extremity abnormal: edema - Peripheral Assessment Left Lower Extremity Edema Type: Non-pitting Edema Degree: 4+ Capillary Refill: < 3 seconds Skin Temperature: Warm Right Lower Extremity Edema Type: Non-pitting Edema Degree: 2+ Capillary Refill: < 3 seconds Skin Temperature: Warm Generalized Edema Type: Non-pitting Edema Degree: 1+ Capillary Refill: < 3 seconds Skin Temperature: Warm Peripheral Pulses: within normal limits - Abdominal General gastrointestinal: soft, non-distended, hypoactive bowel sounds - Integumentary Integumentary: Present: warm, dry - Psychiatric Psychiatric: appropriate mood/affect, cooperative - Neurologic Neurologic: CNII-XII intact, moves all extremities, other (Intubated, off sedation, AAO, following commands) - Allied Health Allied health notes reviewed: nursing HEART Score - HEART Score Troponin: Troponin T < 0.010 ng/mL (0.00-0.029) 07/02/21 10:45 Results - Labs CBC & Chem 7: 07/03/21 03:41 07/03/21 03:41 Labs: Laboratory Last Values WBC 7.7 K/mm3 (4.5-11.0) 07/03/21 03:41 RBC 4.14 M/mm3 (3.65-5.03) 07/03/21 03:41 Hgb 12.6 gm/dl (11.8-15.2) 07/03/21 03:41 Hct 37.0 % (35.5-45.6) 07/03/21 03:41 MCV 90 fl (84-94) 07/03/21 03:41 MCH 30 pg (28-32) 07/03/21 03:41 MCHC 34 % (32-34) 07/03/21 03:41 RDW 14.8 % (13.2-15.2) 07/03/21 03:41 Plt Count 166 K/mm3 (140-440) 07/03/21 03:41 Lymph % (Auto) 11.1 % (13.4-35.0) L 07/03/21 03:41 [place] % (Auto) 4.6 % (0.0-7.3) 07/03/21 03:41 Eos % (Auto) 0.0 % (0.0-4.3) 07/03/21 03:41 Baso % (Auto) 0.2 % (0.0-1.8) 07/03/21 03:41 Lymph # (Auto) 0.9 K/mm3 (1.2-5.4) L 07/03/21 03:41 [place] # (Auto) 0.4 K/mm3 (0.0-0.8) 07/03/21 03:41 Eos # (Auto) 0.0 K/mm3 (0.0-0.4) 07/03/21 03:41 Baso # (Auto) 0.0 K/mm3 (0.0-0.1) 07/03/21 03:41 Seg Neutrophils % 84.1 % (40.0-70.0) H 07/03/21 03:41 Seg Neutrophils # 6.5 K/mm3 (1.8-7.7) 07/03/21 03:41 PT 14.2 Sec. (12.2-14.9) 07/02/21 10:45 INR 0.99 (0.87-1.13) 07/02/21 10:45 APTT 28.3 Sec. (24.2-36.6) 07/02/21 10:45 ABG pH 7.389 pH Units (7.350-7.450) 07/03/21 Unknown ABG pCO2 38.6 mm Hg 07/03/21 Unknown ABG pO2 184.8 mm Hg (80.0-90.0) H 07/03/21 Unknown ABG HCO3 22.8 mmol/L (20.0-26.0) 07/03/21 Unknown ABG O2 Saturation 99.2 % (95.0-99.0) H 07/03/21 Unknown ABG O2 Content 17.5 (0.0-44) 07/03/21 Unknown ABG Base Excess -1.9 mmol/L (-2.0-3.0) 07/03/21 Unknown ABG Hemoglobin 12.5 gm/dl (14.0-18.0) L 07/03/21 Unknown ABG Carboxyhemoglobin 1.2 % (0.0-5.0) 07/03/21 Unknown ABG Methemoglobin 0.6 % (0.0-1.5) 07/03/21 Unknown Oxyhemoglobin 97.4 % (95.0-99.0) 07/03/21 Unknown FiO2 35 % 07/03/21 Unknown Sodium 146 mmol/L (137-145) H 07/03/21 03:41 Potassium 3.5 mmol/L (3.6-5.0) L 07/03/21 03:41 Chloride 107.3 mmol/L (98-107) H 07/03/21 03:41 Carbon Dioxide 24 mmol/L (22-30) 07/03/21 03:41 Anion Gap 18 mmol/L 07/03/21 03:41 BUN 14 mg/dL (9-20) 07/03/21 03:41 Creatinine 0.9 mg/dL (0.8-1.3) 07/03/21 03:41 Estimated GFR > 60 ml/min 07/03/21 03:41 BUN/Creatinine Ratio 16 % 07/03/21 03:41 Glucose 96 mg/dL (75-100) 07/03/21 03:41 POC Glucose 89 mg/dL (70-105) 07/02/21 23:42 Lactic Acid 1.60 mmol/L (0.7-2.0) 07/02/21 23:15 Calcium 9.2 mg/dL (8.4-10.2) 07/03/21 03:41 Magnesium 2.20 mg/dL (1.7-2.3) 07/02/21 10:45 Total Bilirubin 0.90 mg/dL (0.1-1.2) 07/03/21 03:41 AST 23 units/L (5-40) 07/03/21 03:41 ALT 9 units/L (7-56) 07/03/21 03:41 Alkaline Phosphatase 61 units/L (35-129) 07/03/21 03:41 Ammonia 17.0 umol/L (25-60) L 07/02/21 10:45 Total Creatine Kinase 85 units/L (55-170) 07/02/21 10:45 CK-MB (CK-2) 2.2 ng/mL (0.0-4.0) 07/02/21 10:45 CK-MB (CK-2) Rel Index 2.5 (0-4) 07/02/21 10:45 Troponin T < 0.010 ng/mL (0.00-0.029) 07/02/21 10:45 NT-Pro-B Natriuret Pep 449.0 pg/mL (0-900) 07/02/21 10:45 Total Protein 5.8 g/dL (6.3-8.2) L 07/03/21 03:41 Albumin 3.7 g/dL (3.9-5) L 07/03/21 03:41 Albumin/Globulin Ratio 1.8 % 07/03/21 03:41 TSH 3.350 mlU/mL (0.270-4.200) 07/02/21 10:45 Free T4 1.34 ng/dL (0.76-1.46) 07/02/21 10:45 Urine Color Yellow (Yellow) 07/02/21 Unknown Urine Turbidity Clear (Clear) 07/02/21 Unknown Urine pH 6.0 (5.0-7.0) 07/02/21 Unknown Ur Specific [place] 1.009 (1.003-1.030) 07/02/21 Unknown Urine Protein <15 mg/dl mg/dL (Negative) 07/02/21 Unknown Urine Glucose (UA) Neg mg/dL (Negative) 07/02/21 Unknown Urine Ketones Neg mg/dL (Negative) 07/02/21 Unknown Urine Blood Neg (Negative) 07/02/21 Unknown Urine Nitrite Neg (Negative) 07/02/21 Unknown Urine Bilirubin Neg (Negative) 07/02/21 Unknown Urine Urobilinogen < 2.0 mg/dL (<2.0) 07/02/21 Unknown Ur Leukocyte Esterase Neg (Negative) 07/02/21 Unknown Urine WBC (Auto) < 1.0 /HPF (0.0-6.0) 07/02/21 Unknown Urine RBC (Auto) < 1.0 /HPF (0.0-6.0) 07/02/21 Unknown Urine Opiates Screen Negative 07/02/21 Unknown Urine Methadone Screen Negative 07/02/21 Unknown Ur Barbiturates Screen Negative 07/02/21 Unknown Ur Phencyclidine Scrn Negative 07/02/21 Unknown Ur Amphetamines Screen Negative 07/02/21 Unknown U Benzodiazepines Scrn Negative 07/02/21 Unknown Urine Cocaine Screen Negative 07/02/21 Unknown U Marijuana (THC) Screen Negative 07/02/21 Unknown Drugs of Abuse Note Disclamer 07/02/21 Unknown Plasma/Serum Alcohol < 0.01 % (0-0.07) 07/02/21 10:45 Microbiology: Microbiology 07/02/21 07:18 Tracheal Aspirate Sputum Culture - Preliminary Taylor/IV: Voiding Method Indwelling Catheter Active Medications - Current Medications Current Medications: Generic Name Dose Route Start Last Admin Trade Name Freq PRN Reason Stop Dose Admin Acetaminophen 650 mg 07/02/21 14:30 Acetaminophen 325 Mg Tab PO Q4H PRN Pain MILD(1-3)/Fever >100.5/URIAS Albuterol 2.5 mg 07/02/21 17:00 Albuterol 2.5 Mg/3 Ml Nebu IH Q3HRT PRN Wheezing Arformoterol Tartrate 15 mcg 07/02/21 20:00 07/03/21 07:38 Arformoterol 15 Mcg/2 Ml Nebu IH 15 mcg Q12HRT MARTIN Administration Budesonide 0.5 mg 07/02/21 20:00 07/03/21 07:38 Budesonide 0.5 Mg/2 Ml Nebu IH 0.5 mg Q12HRT MARTIN Administration Famotidine 20 mg 07/02/21 15:00 07/02/21 21:24 Famotidine 20 Mg/2 Ml Inj IV 20 mg BID MARTIN Administration Fentanyl 50 mcg 07/02/21 16:00 Fentanyl 100 Mcg/2 Ml Inj IV Q10MIN PRN ANALGESIA Heparin Sodium (Porcine) 5,000 unit 07/02/21 15:00 07/02/21 21:24 Heparin 5,000 Unit/1 Ml Vial SUB-Q 5,000 unit Q12HR MARTIN Administration Hydromorphone HCl 0.5 mg 07/02/21 14:30 Hydromorphone 1 Mg/1 Ml Inj IV Q3H PRN Pain , Severe (7-10) Hydrophilic Ointment 1 applic 07/02/21 16:00 Lip Therapy Vaseline TP Q2H PRN Dry Lips MIDAZOLAM/NS Drip 100mg/100ml 100 mg in 100 mls @ 1 mls/hr 07/02/21 08:00 07/02/21 20:26 Midazolam/Ns Drip 100mg/100ml IV 0 mg/hr TITR MARTIN 0 mls/hr Titration Protocol 1 MG/HR Sodium Chloride 1,000 mls @ 100 mls/hr 07/02/21 14:30 07/03/21 00:32 Nacl 0.9% 1000 Ml IV 100 mls/hr DIRECT MARTIN Administration Azithromycin 500 mg in 250 mls @ 250 mls/hr 07/02/21 15:00 07/02/21 16:57 Zithromax/Ns IV 250 mls/hr Q24H MARTIN Administration Ceftriaxone Sodium 2 gm in 100 mls @ 200 mls/hr 07/02/21 15:30 07/02/21 15:07 Rocephin/Ns 2 Gm/100 Ml IV 200 mls/hr Q24H MARTIN Administration Protocol Fentanyl Citrate 2,000 mcg in 100 mls @ 3.629 mls/hr 07/02/21 16:00 07/02/21 20:26 Fentanyl Drip Premix IV 0 mcg/kg/hr TITR MARTIN 0 mls/hr Titration Protocol 1 MCG/KG/HR Methylprednisolone Sodium Succinate 40 mg 07/03/21 04:00 07/03/21 04:36 Methylprednisolone Sod Succinate 40 Mg/1 Ml Inj IV 40 mg Q12H MARTIN Administration Metoclopramide HCl 10 mg 07/02/21 14:30 Metoclopramide 10 Mg/2 Ml Inj IV Q6H PRN Nausea And Vomiting Morphine Sulfate 2 mg 07/02/21 14:30 Morphine 2 Mg/1 Ml Inj IV Q4H PRN Pain, Moderate (4-6) Multi-Ingred Cream/Lotion/Oil/Oint 1 applic 07/02/21 16:00 Mineral Oil/Petrolatum, White Ophth Oint 3.5 Gm OU Q4H PRN Dry Eye(s) Ondansetron HCl 4 mg 07/02/21 14:30 Ondansetron 4 Mg/2 Ml Inj IV Q8H PRN Nausea And Vomiting Potassium Chloride 40 meq 07/03/21 08:30 Potassium Chloride 20 Meq Packet FEEDTUBE 07/03/21 12:30 ONCE@0830 MARTIN Promethazine HCl 25 mg 07/02/21 14:30 Promethazine 25 Mg Rect Supp MS Q6H PRN N/V IF NPO AND NO IV ACCESS Senna/Docusate Sodium 1 tab 07/02/21 22:00 07/02/21 21:24 Sennosides/Docusate Sodium 8.6/50 Mg Tab FEEDTUBE 1 tab BID MARTIN Administration Sodium Chloride 10 ml 07/02/21 15:00 07/02/21 21:24 Sodium Chloride 0.9% 10 Ml Flush Syringe IV 10 ml BID MARTIN Administration Sodium Chloride 10 ml 07/02/21 14:30 Sodium Chloride 0.9% 10 Ml Flush Syringe IV PRN PRN LINE FLUSH <LAURA TERRAZAS - Last Filed: 07/08/21 07:32> Assessment and Plan Assessment and plan: I saw and evaluated the patient. I agree with the findings and the plan of care as documented in the Nurse Practitioner's~note, with the following corrections and additions. Hospitalist Physical - Constitutional Vitals: Temp Pulse Resp BP Pulse Ox 97.5 F L 47 L 18 150/74 99 07/08/21 03:28 07/08/21 03:28 07/08/21 03:28 07/08/21 03:28 07/08/21 03:28 HEART Score - HEART Score Troponin: Troponin T < 0.010 ng/mL (0.00-0.029) 07/02/21 10:45 Results - Labs CBC & Chem 7: 07/04/21 04:21 07/07/21 08:08 Labs: Laboratory Last Values WBC 8.6 K/mm3 (4.5-11.0) 07/04/21 04:21 RBC 3.91 M/mm3 (3.65-5.03) 07/04/21 04:21 Hgb 11.6 gm/dl (11.8-15.2) L 07/04/21 04:21 Hct 35.6 % (35.5-45.6) 07/04/21 04:21 MCV 91 fl (84-94) 07/04/21 04:21 MCH 30 pg (28-32) 07/04/21 04:21 MCHC 33 % (32-34) 07/04/21 04:21 RDW 15.1 % (13.2-15.2) 07/04/21 04:21 Plt Count 142 K/mm3 (140-440) 07/04/21 04:21 Lymph % (Auto) 11.1 % (13.4-35.0) L 07/03/21 03:41 [place] % (Auto) 4.6 % (0.0-7.3) 07/03/21 03:41 Eos % (Auto) 0.0 % (0.0-4.3) 07/03/21 03:41 Baso % (Auto) 0.2 % (0.0-1.8) 07/03/21 03:41 Lymph # (Auto) 0.9 K/mm3 (1.2-5.4) L 07/03/21 03:41 [place] # (Auto) 0.4 K/mm3 (0.0-0.8) 07/03/21 03:41 Eos # (Auto) 0.0 K/mm3 (0.0-0.4) 07/03/21 03:41 Baso # (Auto) 0.0 K/mm3 (0.0-0.1) 07/03/21 03:41 Seg Neutrophils % 84.1 % (40.0-70.0) H 07/03/21 03:41 Seg Neutrophils # 6.5 K/mm3 (1.8-7.7) 07/03/21 03:41 PT 14.2 Sec. (12.2-14.9) 07/02/21 10:45 INR 0.99 (0.87-1.13) 07/02/21 10:45 APTT 28.3 Sec. (24.2-36.6) 07/02/21 10:45 ABG pH 7.389 pH Units (7.350-7.450) 07/03/21 Unknown ABG pCO2 38.6 mm Hg 07/03/21 Unknown ABG pO2 184.8 mm Hg (80.0-90.0) H 07/03/21 Unknown ABG HCO3 22.8 mmol/L (20.0-26.0) 07/03/21 Unknown ABG O2 Saturation 99.2 % (95.0-99.0) H 07/03/21 Unknown ABG O2 Content 17.5 (0.0-44) 07/03/21 Unknown ABG Base Excess -1.9 mmol/L (-2.0-3.0) 07/03/21 Unknown ABG Hemoglobin 12.5 gm/dl (14.0-18.0) L 07/03/21 Unknown ABG Carboxyhemoglobin 1.2 % (0.0-5.0) 07/03/21 Unknown ABG Methemoglobin 0.6 % (0.0-1.5) 07/03/21 Unknown Oxyhemoglobin 97.4 % (95.0-99.0) 07/03/21 Unknown FiO2 35 % 07/03/21 Unknown Sodium 147 mmol/L (137-145) H 07/07/21 08:08 Potassium 4.5 mmol/L (3.6-5.0) 07/07/21 08:08 Chloride 109.2 mmol/L (98-107) H 07/07/21 08:08 Carbon Dioxide 29 mmol/L (22-30) 07/07/21 08:08 Anion Gap 13 mmol/L 07/07/21 08:08 BUN 21 mg/dL (9-20) H 07/07/21 08:08 Creatinine 0.8 mg/dL (0.8-1.3) 07/07/21 08:08 Estimated GFR > 60 ml/min 07/07/21 08:08 BUN/Creatinine Ratio 26 % 07/07/21 08:08 Glucose 86 mg/dL (75-100) 07/07/21 08:08 POC Glucose 157 mg/dL (70-105) H 07/07/21 21:22 Hemoglobin A1c 5.0 % (4-6) 07/04/21 04:21 Lactic Acid 1.60 mmol/L (0.7-2.0) 07/02/21 23:15 Calcium 9.5 mg/dL (8.4-10.2) 07/07/21 08:08 Phosphorus 3.60 mg/dL (2.5-4.5) 07/04/21 04:21 Magnesium 2.10 mg/dL (1.7-2.3) 07/04/21 04:21 Total Bilirubin 0.90 mg/dL (0.1-1.2) 07/03/21 03:41 AST 23 units/L (5-40) 07/03/21 03:41 ALT 9 units/L (7-56) 07/03/21 03:41 Alkaline Phosphatase 61 units/L (35-129) 07/03/21 03:41 Ammonia 17.0 umol/L (25-60) L 07/02/21 10:45 Total Creatine Kinase 85 units/L (55-170) 07/02/21 10:45 CK-MB (CK-2) 2.2 ng/mL (0.0-4.0) 07/02/21 10:45 CK-MB (CK-2) Rel Index 2.5 (0-4) 07/02/21 10:45 Troponin T < 0.010 ng/mL (0.00-0.029) 07/02/21 10:45 NT-Pro-B Natriuret Pep 449.0 pg/mL (0-900) 07/02/21 10:45 Total Protein 5.8 g/dL (6.3-8.2) L 07/03/21 03:41 Albumin 3.7 g/dL (3.9-5) L 07/03/21 03:41 Albumin/Globulin Ratio 1.8 % 07/03/21 03:41 Procalcitonin < 0.05 ng/mL (<0.15) 07/02/21 10:45 TSH 3.350 mlU/mL (0.270-4.200) 07/02/21 10:45 Free T4 1.34 ng/dL (0.76-1.46) 07/02/21 10:45 Urine Color Yellow (Yellow) 07/02/21 Unknown Urine Turbidity Clear (Clear) 07/02/21 Unknown Urine pH 6.0 (5.0-7.0) 07/02/21 Unknown Ur Specific [place] 1.009 (1.003-1.030) 07/02/21 Unknown Urine Protein <15 mg/dl mg/dL (Negative) 07/02/21 Unknown Urine Glucose (UA) Neg mg/dL (Negative) 07/02/21 Unknown Urine Ketones Neg mg/dL (Negative) 07/02/21 Unknown Urine Blood Neg (Negative) 07/02/21 Unknown Urine Nitrite Neg (Negative) 07/02/21 Unknown Urine Bilirubin Neg (Negative) 07/02/21 Unknown Urine Urobilinogen < 2.0 mg/dL (<2.0) 07/02/21 Unknown Ur Leukocyte Esterase Neg (Negative) 07/02/21 Unknown Urine WBC (Auto) < 1.0 /HPF (0.0-6.0) 07/02/21 Unknown Urine RBC (Auto) < 1.0 /HPF (0.0-6.0) 07/02/21 Unknown Urine Opiates Screen Negative 07/02/21 Unknown Urine Methadone Screen Negative 07/02/21 Unknown Ur Barbiturates Screen Negative 07/02/21 Unknown Ur Phencyclidine Scrn Negative 07/02/21 Unknown Ur Amphetamines Screen Negative 07/02/21 Unknown U Benzodiazepines Scrn Negative 07/02/21 Unknown Urine Cocaine Screen Negative 07/02/21 Unknown U Marijuana (THC) Screen Negative 07/02/21 Unknown Drugs of Abuse Note Disclamer 07/02/21 Unknown Plasma/Serum Alcohol < 0.01 % (0-0.07) 07/02/21 10:45 Coronavirus (PCR) Negative (Negative) 07/02/21 14:05 SARS-CoV-2 (PCR) Negative (Negative) 07/07/21 14:00 Taylor/IV: Voiding Method Indwelling Catheter Active Medications - Current Medications Current Medications: Generic Name Dose Route Start Last Admin Trade Name Freq PRN Reason Stop Dose Admin Acetaminophen 650 mg 07/02/21 14:30 Acetaminophen 325 Mg Tab PO Q4H PRN Pain MILD(1-3)/Fever >100.5/URIAS Albuterol 2.5 mg 07/02/21 17:00 Albuterol 2.5 Mg/3 Ml Nebu IH Q3HRT PRN Wheezing Arformoterol Tartrate 15 mcg 07/02/21 20:00 07/07/21 20:46 Arformoterol 15 Mcg/2 Ml Nebu IH 15 mcg Q12HRT MARTIN Administration Budesonide 0.5 mg 07/02/21 20:00 07/07/21 20:46 Budesonide 0.5 Mg/2 Ml Nebu IH 0.5 mg Q12HRT MARTIN Administration Famotidine 20 mg 07/04/21 10:00 07/07/21 14:43 Famotidine 20 Mg Tab PO 20 mg QDAY MARTIN Administration Heparin Sodium (Porcine) 5,000 unit 07/02/21 15:00 07/07/21 22:01 Heparin 5,000 Unit/1 Ml Vial SUB-Q Not Given Q12HR MARTIN Hydrophilic Ointment 1 applic 07/02/21 16:00 Lip Therapy Vaseline TP Q2H PRN Dry Lips Sodium Chloride 1,000 mls @ 75 mls/hr 07/05/21 04:30 07/08/21 02:13 Nacl 0.9% 1000 Ml IV 75 mls/hr DIRECT MARTIN Administration Metoclopramide HCl 10 mg 07/02/21 14:30 Metoclopramide 10 Mg/2 Ml Inj IV Q6H PRN Nausea And Vomiting Multi-Ingred Cream/Lotion/Oil/Oint 1 applic 07/02/21 16:00 Mineral Oil/Petrolatum, White Ophth Oint 3.5 Gm OU Q4H PRN Dry Eye(s) Ondansetron HCl 4 mg 07/02/21 14:30 Ondansetron 4 Mg/2 Ml Inj IV Q8H PRN Nausea And Vomiting Prednisone 40 mg 07/04/21 10:00 07/07/21 14:43 Prednisone 20 Mg Tab PO 40 mg QDAY MARTIN Administration Senna/Docusate Sodium 1 tab 07/02/21 22:00 07/07/21 22:02 Sennosides/Docusate Sodium 8.6/50 Mg Tab FEEDTUBE Not Given BID MARTIN Sodium Chloride 10 ml 07/02/21 15:00 07/07/21 22:02 Sodium Chloride 0.9% 10 Ml Flush Syringe IV Not Given BID MARTIN Sodium Chloride 10 ml 07/02/21 14:30 Sodium Chloride 0.9% 10 Ml Flush Syringe IV PRN PRN LINE FLUSH Tramadol HCl 50 mg 07/04/21 14:26 Tramadol 50 Mg Tab PO Q6H PRN Pain, Moderate (4-6) Nutrition/Malnutrition Assess - Dietary Evaluation Nutrition/Malnutrition Findings: Nutrition Notes Start: 07/03/21 11:15 Freq: Status: Active Protocol: Document 07/07/21 12:34 JEFF (Rec: 07/07/21 13:09 JEFF [id number]) Nutrition Notes Initial or Follow up Reassessment Current Diagnosis COPD,Coronary Artery Disease, Diabetes,Hypertension, Respiratory Failure, Malnutrition Other Pertinent Diagnosis Pleural Effusion, Bradycardia, GERD, s/p Cardiac Arrest w/ ROSC. Current Diet NPO (since 07/07 08:24), Consistent Carbohydrates Diet (will resume). Labs/Tests 07/07: Na 147, Cl 109.2, BUN 21. Pertinent Medications 07/07: Nutritionally unremarkable. Height 5 ft 8 in Weight 72.575 kg [place] Body Weight (kg) 70.00 BMI 24.3 Weight change and time frame No body weight change reported in 5 days. Weight Status Appropriate Subjective/Other Information RD consult for routine F/U on Dietary Advancement. No reports available on Pt's PO intake of meals at the time , will assess at F/U. Pt momentarily on NPO. Lexiscan stress test planned for 07/07; PO diet will resume after test. Pt passed bedside swallow screen test on 07/03. Pt on Room Air, O2 saturation @ 100%, according to Physiscal Assessment History notes. Pt has missing teeth, according to Physiscal Assessment History notes. Pt presents Pitting Edema 2+, according to Physiscal Assessment History notes. Pt will be discharged to SNF when clinically cleared, according to Social Work notes . Percent of energy/protein needs met: Pt momentarily on NPO. Prescribed Consistent Carbohydrates Diet provides for energy/protein needs (2, 061 Kcal/91 g) during LOS. Burn Absent Trauma Absent GI Symptoms None Food Allergy No Skin Integrity/Comment Assessment WNL. Minimum of two criteria No #1 Nutrition Diagnosis Inadequate energy intake Comments: Lexiscan stress test planned for 07/07; PO diet will resume after test. No reports available on Pt's PO intake of meals at the time. Diagnosis Progress(for reassessment Improved documentation) Is patient on ventilator? No Is Patient Ambulatory and/or Out of Bed No REE-([facility]-confined to bed) 3951.296 Calculation Used for Recommendations [facility] Additional Notes Protein: 1-1.2 g/Kg ABW; 73-87 g/day. Fluids: 1 ml/Kcal, or as per MD. Nutrition Intervention Change Diet Order: Resume Consistent Carbohydrates Diet after Stress Test. Goal #1 Maintain body weight within +/ -3% of admission body weight during LOS. Follow-Up By: 07/11/21 Additional Comments Continue monitoring food tolerance, %PO intake of meals , and BM.
[2021-07-03] MEDS: HEPARIN 5,000 UNIT/1 ML VIAL SUB-Q SCH ×2 (11:03→22:53)
[2021-07-03] MEDS: SENNOSIDES/DOCUSATE SODIUM 8.6/50 MG TAB FEEDTUBE SCH ×2 (11:03→22:53)
[2021-07-03] MEDS: FAMOTIDINE 20 MG/2 ML INJ IV SCH (11:03)
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
--- NOTE | 2021-07-03 13:43 | Progress Note ---
Assessment and Plan Cardiac arrest with ROSC Acute hypoxemic respiratory failure on MVS Small left pleural effusion Acute toxic metabolic encephalopathy DM II CAD HTN H/O Asthma H/O Gout H/O Prostate cancer - passed SBT - extubate - dopplers negative for DVT - 2D ECHO shows moderate to severe Pulm HTN (RVSP 59 mmHg on read) - continue care as below for now; - Daily SAT and SBT assessment as tolerated - accuchecks with glycemic control per SSI (While critically ill target blood glucose of 140-180 mg/dL; avoid hypoglycemia) - sedation prn for target RASS 0 to -1 - continue to wean supplemental oxygen for target O2 sat's > 90% acutely - VAP bundle addressed - continue lung protective strategies - continue bronchodilators with pulmonary hygiene per RT - wean per pulmonary driven protocols otherwise - avoid nephrotoxins, renally dose all medications - continue to avoid benzodiazepine's, reduce the possibility of delirium - AB's per ID rec's - prn analgesia per CPOT score - Maintenance of sleep-wake cycle, avoid delirium - continue enteral nutritional support at goal rate as tolerated - G.I. & VTE prophylaxis - PT/OT/ROM exercises - continue mobility protocols for pressure ulcer prophylaxis - Monitor hemodynamics closely - continue other care per attending / other consultants - discharge planning ongoing concurrently .... Re-evaluate in am & prn CONDITION: CRITICAL PROGNOSIS: GUARDED CODE STATUS: FULL CODE The high probability of a clinically significant, sudden or life-threatening deterioration of the [respiratory, cardiovascular & neurologic] system(s) required my full and direct attention, intervention and personal management. The aggregate critical care time was [34] minutes without overlap. Time includes spent on; [x] Data Review and interpretation [x] Patient assessment and monitoring of vital signs [x] Documentation [x] Medication orders and management Subjective Date of service: 07/03/21 Principal diagnosis: Cardiac arrest with ROSC; AHRF; AMS; DM II; CAD; H/O Prostate cancer Interval history: Patient is seen today for: Cardiac arrest with ROSC; AHRF; AMS; DM II; CAD; H/O Prostate cancer Seen and examined at bedside; 24hour events reviewed; nursing and respiratory care staff consulted; no adverse overnight events reported to me; resting in bed; passed SBT this morning very well; alert; denies N/V/F/C Objective Vital Signs - 12hr 07/03/21 07/03/2122 02:01 02:30 03:01 Temperature Pulse Rate 41 L 46 L 41 L Pulse Rate [ Anterior Bilateral Throughout] Respiratory 20 20 20 Rate Respiratory Rate [Anterior Bilateral Throughout] Blood Pressure 140/62 149/81 138/69 O2 Sat by Pulse 100 100 100 Oximetry 07/03/21 07/03/21 07/03/21 03:15 03:16 03:29 Temperature 98.8 F Pulse Rate 41 L Pulse Rate [ Anterior Bilateral Throughout] Respiratory 20 Rate Respiratory Rate [Anterior Bilateral Throughout] Blood Pressure O2 Sat by Pulse 100 Oximetry 07/03/21 07/03/21 07/03/21 03:31 04:01 04:27 Temperature Pulse Rate 44 L 43 L 44 L Pulse Rate [ Anterior Bilateral Throughout] Respiratory 20 21 Rate Respiratory Rate [Anterior Bilateral Throughout] Blood Pressure 146/70 142/69 147/69 O2 Sat by Pulse 100 100 100 Oximetry 07/03/21 07/03/21 07/03/21 04:31 05:00 05:31 Temperature Pulse Rate 42 L 61 50 L Pulse Rate [ Anterior Bilateral Throughout] Respiratory 20 17 21 Rate Respiratory Rate [Anterior Bilateral Throughout] Blood Pressure 147/67 141/75 149/63 O2 Sat by Pulse 100 100 100 Oximetry 07/03/21 07/03/21 07/03/21 06:01 06:31 07:01 Temperature Pulse Rate 37 L 44 L 55 L Pulse Rate [ Anterior Bilateral Throughout] Respiratory 20 17 16 Rate Respiratory Rate [Anterior Bilateral Throughout] Blood Pressure 129/74 134/84 149/74 O2 Sat by Pulse 100 100 100 Oximetry 07/03/21 07/03/21 07/03/21 07:17 07:31 07:45 Temperature 97.8 F Pulse Rate 46 L Pulse Rate [ Anterior Bilateral Throughout] Respiratory 21 20 Rate Respiratory Rate [Anterior Bilateral Throughout] Blood Pressure 148/71 O2 Sat by Pulse 100 100 Oximetry 07/03/21 07/03/21 07/03/21 07:46 07:50 08:00 Temperature Pulse Rate 46 L 66 60 Pulse Rate [ 57 L Anterior Bilateral Throughout] Respiratory 13 Rate Respiratory 20 Rate [Anterior Bilateral Throughout] Blood Pressure 150/72 155/84 155/84 O2 Sat by Pulse 100 100 100 Oximetry 07/03/21 07/03/21 07/03/21 08:30 09:00 09:31 Temperature Pulse Rate 68 64 48 L Pulse Rate [ Anterior Bilateral Throughout] Respiratory 13 14 14 Rate Respiratory Rate [Anterior Bilateral Throughout] Blood Pressure 156/75 138/73 144/72 O2 Sat by Pulse 100 100 100 Oximetry 07/03/21 07/03/21 07/03/21 10:01 10:31 11:01 Temperature Pulse Rate 58 L 56 L 65 Pulse Rate [ Anterior Bilateral Throughout] Respiratory 14 14 11 L Rate Respiratory Rate [Anterior Bilateral Throughout] Blood Pressure 138/76 136/72 132/73 O2 Sat by Pulse 100 100 100 Oximetry 07/03/21 07/03/21 07/03/21 11:31 11:50 12:00 Temperature 98.7 F Pulse Rate 59 L 74 Pulse Rate [ Anterior Bilateral Throughout] Respiratory 14 10 L Rate Respiratory Rate [Anterior Bilateral Throughout] Blood Pressure 134/77 154/83 O2 Sat by Pulse 100 100 Oximetry 07/03/21 12:30 Temperature Pulse Rate 55 L Pulse Rate [ Anterior Bilateral Throughout] Respiratory 15 Rate Respiratory Rate [Anterior Bilateral Throughout] Blood Pressure 133/65 O2 Sat by Pulse 100 Oximetry Constitutional: no acute distress Eyes: non-icteric ENT: oropharynx moist Neck: supple, no lymphadenopathy, no JVD Effort: normal Ascultation: Bilateral: clear, diminished breath sounds Percussion: Bilateral: not dull Cardiovascular: regular rate and rhythm Gastrointestinal: normoactive bowel sounds, soft, non-tender, non-distended Integumentary: normal Extremities: no cyanosis, pulses normal, no ischemia or petechiae Neurologic: non-focal exam (grossly), pupils equal and round, CN II-XII normal, motor strength normal and Psychiatric: mood appropriate, affect normal CBC and BMP: 07/04/21 04:21 07/04/21 04:21 ABG, PT/INR, D-dimer: ABG ABG pH 7.389 pH Units (7.350-7.450) 07/03/21 Unknown ABG pCO2 38.6 mm Hg 07/03/21 Unknown ABG pO2 184.8 mm Hg (80.0-90.0) H 07/03/21 Unknown ABG O2 Saturation 99.2 % (95.0-99.0) H 07/03/21 Unknown PT/INR, D-dimer PT 14.2 Sec. (12.2-14.9) 07/02/21 10:45 INR 0.99 (0.87-1.13) 07/02/21 10:45 Abnormal lab findings: Abnormal Labs 07/02/21 07/02/21 07/02/21 07:42 10:45 10:45 Lymph % (Auto) Mccone % (Auto) 8.5 H Lymph # (Auto) Seg Neutrophils % ABG pO2 575.4 H ABG O2 Saturation 99.6 H ABG Hemoglobin 12.7 L Sodium Potassium Chloride 107.7 H Ammonia Total Protein 6.1 L Albumin 3.8 L 07/02/21 07/03/21 07/03/21 10:45 03:41 03:41 Lymph % (Auto) 11.1 L Mccone % (Auto) Lymph # (Auto) 0.9 L Seg Neutrophils % 84.1 H ABG pO2 ABG O2 Saturation ABG Hemoglobin Sodium 146 H Potassium 3.5 L Chloride 107.3 H Ammonia 17.0 L Total Protein 5.8 L Albumin 3.7 L 07/03/21 07/03/21 05:05 Unknown Lymph % (Auto) Mccone % (Auto) Lymph # (Auto) Seg Neutrophils % ABG pO2 176.7 H 184.8 H ABG O2 Saturation 99.1 H 99.2 H ABG Hemoglobin 13.1 L 12.5 L Sodium Potassium Chloride Ammonia Total Protein Albumin Chest x-ray: image reviewed (no acute process) Allied health notes reviewed: nursing
--- NOTE | 2021-07-03 16:30 | Progress Note ---
Assessment and Plan Patient is a 81-year-old with unknown past medical history, who has been seen by us previously at the hospital, but does not follow with us outpatient presented to [facility] via EMS for altered mental status Altered Mental Status Acute respiratory failure Bradycardia- SB vs ? CHB ? History of psychiatric illness (per [facility] records) Echocardiogram (2017- ef 55-60%). Repeat echo pending Stress test-Lexiscan MPI 09/01/2017: Negative for acute ischemia Echo 07/02/2021-EF 55 to 60% mild diastolic dysfunction is present impaired relaxation pattern. Right ventricular systolic function is normal. Plan: EKG 06/22/21-sinus bradycardia rate 56, prolonged LA interval, no acute ischemic changes. Troponin negative x1. BNP negative. Electrolytes acceptable. Potassium 4.1, magnesium 2.2 TSH, free T4 acceptable limits. Avoid AV malika blocking agents Consider EP consultation if reversible causes not found for bradycardia and does not improve Please call if patient becomes hemodynamically unstable. At this time patiente remains hemodynamically stable. Will continue to follow Patient seen and examined with Dr. Avila, who agrees with assessment and plan of care of this patient. - Patient Problems (1) Altered mental status Current Visit: Yes Status: Acute (2) Acute encephalopathy Current Visit: Yes Status: Acute (3) Acute respiratory failure with hypoxia Current Visit: Yes Status: Acute (4) HTN (hypertension) Current Visit: Yes Status: Chronic Qualifiers: Hypertension type: primary hypertension Qualified Code(s): I10 - Essential (primary) hypertension (5) T2DM (type 2 diabetes mellitus) Current Visit: Yes Status: Chronic Qualifiers: Diabetes mellitus termite exterminator helper insulin use: unspecified senior care insulin use status Subjective Date of service: 07/03/21 Principal diagnosis: AMS/respiratroy failure, bradycardia Interval history: Patient was extubated and is awake alert and oriented denying any current complaints Patient remains sinus bradycardia 50s on monitor with sinus pauses and episodes into sinus 60s Objective Vital Signs Temp Pulse Pulse Resp Resp BP Pulse Ox 07/03/21 15:31 59 L 17 139/63 100 07/03/21 15:00 61 16 135/70 100 07/03/21 14:31 70 15 127/67 100 07/03/21 14:00 62 11 L 138/69 07/03/21 13:31 56 L 14 121/67 100 07/03/21 13:00 56 L 16 131/71 100 07/03/21 12:30 55 L 15 133/65 100 07/03/21 12:15 14 100 07/03/21 12:00 74 10 L 154/83 100 07/03/21 11:50 98.7 F 07/03/21 11:31 59 L 14 134/77 100 07/03/21 11:01 65 11 L 132/73 100 07/03/21 10:31 56 L 14 136/72 100 07/03/21 10:01 58 L 14 138/76 100 07/03/21 09:31 48 L 14 144/72 100 07/03/21 09:00 64 14 138/73 100 07/03/21 08:30 68 13 156/75 100 07/03/21 08:00 60 13 155/84 100 07/03/21 07:50 66 155/84 100 07/03/21 07:46 46 L 57 L 20 150/72 100 07/03/21 07:45 20 100 07/03/21 07:31 46 L 21 148/71 100 07/03/21 07:17 97.8 F 07/03/21 07:01 55 L 16 149/74 100 07/03/21 06:31 44 L 17 134/84 100 07/03/21 06:01 37 L 20 129/74 100 07/03/21 05:31 50 L 21 149/63 100 07/03/21 05:00 61 17 141/75 100 07/03/21 04:31 42 L 20 147/67 100 07/03/21 04:27 44 L 147/69 100 07/03/21 04:01 43 L 21 142/69 100 07/03/21 03:31 44 L 20 146/70 100 07/03/21 03:29 98.8 F 07/03/21 03:16 20 100 07/03/21 03:15 41 L 07/03/21 03:01 41 L 20 138/69 100 07/03/21 02:30 46 L 20 149/81 100 07/03/21 02:01 41 L 20 140/62 100 07/03/21 01:31 43 L 20 131/74 100 07/03/21 01:24 43 L 20 100 07/03/21 00:30 51 L 19 150/74 100 07/03/21 00:12 51 L 150/74 100 07/03/21 00:00 45 L 20 150/70 100 07/02/21 23:49 97.9 F 07/02/21 23:30 48 L 20 157/73 100 07/02/21 23:15 37 L 07/02/21 23:14 43 L 20 156/68 07/02/21 23:00 40 L 20 147/82 100 07/02/21 22:30 42 L 20 139/79 07/02/21 22:03 41 L 20 100 07/02/21 21:42 97.6 F 07/02/21 21:29 20 100 07/02/21 20:30 40 L 168/75 07/02/21 19:59 40 L 20 07/02/21 19:51 39 L 07/02/21 18:16 48 L 20 164/91 07/02/21 18:00 49 L 20 165/77 07/02/21 17:46 45 L 20 172/82 07/02/21 17:30 48 L 20 155/83 07/02/21 17:16 40 L 21 155/83 07/02/21 17:00 57 L 21 151/87 07/02/21 16:46 41 L 20 164/75 07/02/21 16:30 49 L 20 165/81 100 - Physical Examination General: No Apparent Distress HEENT: Positive: Normocephaly, Mucus Membranes Dry Neck: Positive: trachea midline Cardiac: Positive: Regular Rate, Regular Rhythm, Bradycardia Lungs: Positive: Decreased Breath Sounds Neuro: Positive: Grossly Intact Abdomen: Positive: Active Bowel Sounds Skin: Negative: Rash Extremities: Present: +2 Edema (BLE), Cool (upper extremeties) - Labs and Meds Cardiac Enzymes 07/03/21 Range/Units 03:41 AST 23 (5-40) units/L CBC 07/03/21 Range/Units 03:41 WBC 7.7 (4.5-11.0) K/mm3 RBC 4.14 (3.65-5.03) M/mm3 Hgb 12.6 (11.8-15.2) gm/dl Hct 37.0 (35.5-45.6) % Plt Count 166 (140-440) K/mm3 Lymph # (Auto) 0.9 L (1.2-5.4) K/mm3 [place] # (Auto) 0.4 (0.0-0.8) K/mm3 Eos # (Auto) 0.0 (0.0-0.4) K/mm3 Baso # (Auto) 0.0 (0.0-0.1) K/mm3 Comprehensive Metabolic Panel 07/03/21 Range/Units 03:41 Sodium 146 H (137-145) mmol/L Potassium 3.5 L (3.6-5.0) mmol/L Chloride 107.3 H (98-107) mmol/L Carbon Dioxide 24 (22-30) mmol/L BUN 14 (9-20) mg/dL Creatinine 0.9 (0.8-1.3) mg/dL Glucose 96 (75-100) mg/dL Calcium 9.2 (8.4-10.2) mg/dL AST 23 (5-40) units/L ALT 9 (7-56) units/L Alkaline Phosphatase 61 (35-129) units/L Total Protein 5.8 L (6.3-8.2) g/dL Albumin 3.7 L (3.9-5) g/dL - Imaging and Cardiology EKG: image reviewed (SB) Echo: report reviewed - Telemetry EKG Rhythm: Sinus Bradycardia - EKG Sinus rhythms and dysrhythmias: sinus bradycardia (no acute ischemic changes) - Allied health notes Allied health notes reviewed: nursing
[2021-07-04 05:09] LABS: Hematocrit 35.6 % (35.5-45.6); Hemoglobin 11.6 gm/dl (11.8-15.2); Mean Corpuscular HGB Conc 33 % (32-34); Mean Corpuscular Volume 91 fl (84-94); Platelet Count 142 K/mm3 (140-440); Red Blood Count 3.91 M/mm3 (3.65-5.03); Red Cell Distribution Width 15.1 % (13.2-15.2)
[2021-07-04 05:20] LABS: BUN/Creatinine Ratio 29; Blood Urea Nitrogen 26 mg/dL (9-20); Calcium 9.1 mg/dL (8.4-10.2); Hemolysis Index 11
[2021-07-04] MEDS: BUDESONIDE 0.5 MG/2 ML NEBU IH SCH ×2 (08:53→22:40)
[2021-07-04] MEDS: ARFORMOTEROL 15 MCG/2 ML NEBU IH SCH ×2 (08:53→22:40)
--- NOTE | 2021-07-04 10:25 | Progress Note ---
Assessment and Plan Assessment and plan: This is a 81-year-old male with known past medical history of HTN, Type 2 DM, possible COPD, and GERD admitted for decreased responsiveness requiring ventilatory support. Patient was also found in bradycardia with concern for possible heart block, cardiology is on consulted. Hospital Course to Date: 07/03: Patient is AAO, following commands, on the vent. Off sedation and tole rating PST. This am ABG and CXR noted. Plan for possible extubation today. Patient remains bradycardic this am, possible HB noted on the monitor, VSS. Cardiology is on consult, awaiting their recommendations. Will hold IV antiobiotic for now, patient remains afebrile with no leukocytosis, lactic and procal normal. 07/04: S/p extubation, stable on RA. Remains andres on the monitor, HR as low as 38 overnight, VSS. Awaiting Cardio final recommendation. Patient is stable for transfer to Telemetry once a bed is available. Assessment and Plan #Acute Hypoxic Respiratory Failure #COPD with Exacerbation #Pleural Effusion - Found unresponsive at home, per family they started CPR - EMS found patient bradycardic and unresponsive - Patient was hypoxic at the time of arrival and also respiratory rate of about 8 - Patient was intubated in the ED on 07/02 for airway protection - 07/03 s/p extubation, now stable on RA - CCM consulted, appreciate recommendations - Continue Steroids and Nebs per CCM - No evidence of any infectious process, will hold empiric IV ABx for now - Aspiration precaution HOB above 30 - PRN O2 supplementation - Continue SPO2 monitoring for SPO2 goal above 92% #Bradycardia, possible HB #HTN (hypertension) - Presented with bradycardia - initial EKG unremarkable, showing SB - Patient remains bradycardic this am,as low as 38 overnight, VSS - 12 lead EKG reveals SB - Cardiology on consult, awaiting recommendations - Continue blood pressure monitor per protocol - PRN antihypertensives for SBP greater than 160 #Acute Encephalopathy-resolved - Etiology unclear, probably due to bradycardia - Urine drug screen negative, No focus of infection identified - CT head with no acute intracranial abnormality - Patient remains on the vent, off sedation this am - AAO and appriopriate, following commands - Avoid benzodiazepine to reduce the possibility of delirium - Prn analgesia for pain management - Maintenance of sleep-wake cycle #T2DM (type 2 diabetes mellitus) - hemoglobin A1c- 5.0 - BG check and SSI Q6hrs - Avoid hypoglycemia #GERD (Gastroesophageal Reflux Disease) - On PPI- Pepcid #Malnutrition - Tolerated PO - Nutrition consulted for supplementation #DVT Prophylaxis - Heparin SubQ - SCDs to bilateral lower extremities while in bed The high probability of a clinically significant, sudden or life threatening deterioration of the [Respiratory, CV] system(s) required my full and direct attention, intervention and personal management. The aggregate critical care time was [40] minutes. This time is in addition to time spent performing reported procedures but includes the following: [x] Data Review and interpretation [x] Patient assessment and monitoring of vital signs [x] Documentation [x] Medication orders and management Disposition Plan: Transfer to The floor Total Time Spent with Patient (Minutes): 40 History Interval history: Patient seen and examined at the bedside. s/p extubation, currently stable on RA, fully AAO. Denied any pain nor any discomfort at this time. Patient remains Andres this am, HR dropped as low as 38 overnight, VSS Hospitalist Physical - Constitutional Vitals: Temp Pulse Resp BP Pulse Ox 98.5 F 56 L 18 126/70 100 07/04/21 04:00 07/04/21 08:53 07/04/21 08:53 07/04/21 06:01 07/04/21 06:01 General appearance: Present: no acute distress, well-nourished - EENT Eyes: Present: PERRL, EOM intact ENT: hearing intact, clear oral mucosa - Neck Neck: Present: normal ROM - Respiratory Respiratory effort: normal Respiratory: bilateral: diminished - Cardiovascular Rhythm: regular Heart Sounds: Present: S1 & S2 - Extremities Extremities: no ischemia, pulses intact, pulses symmetrical Extremity abnormal: edema - Peripheral Assessment Bilateral Lower Extremity Edema Type: Non-pitting Edema Degree: 3+ Capillary Refill: < 3 seconds Skin Temperature: Warm Peripheral Pulses: within normal limits - Abdominal General gastrointestinal: soft, non-distended, normal bowel sounds - Integumentary Integumentary: Present: warm, dry - Psychiatric Psychiatric: appropriate mood/affect, cooperative - Neurologic Neurologic: CNII-XII intact, moves all extremities - Allied Health Allied health notes reviewed: nursing, case management HEART Score - HEART Score Troponin: Troponin T < 0.010 ng/mL (0.00-0.029) 07/02/21 10:45 Results - Labs CBC & Chem 7: 07/04/21 04:21 07/04/21 04:21 Labs: Laboratory Last Values WBC 8.6 K/mm3 (4.5-11.0) 07/04/21 04:21 RBC 3.91 M/mm3 (3.65-5.03) 07/04/21 04:21 Hgb 11.6 gm/dl (11.8-15.2) L 07/04/21 04:21 Hct 35.6 % (35.5-45.6) 07/04/21 04:21 MCV 91 fl (84-94) 07/04/21 04:21 MCH 30 pg (28-32) 07/04/21 04:21 MCHC 33 % (32-34) 07/04/21 04:21 RDW 15.1 % (13.2-15.2) 07/04/21 04:21 Plt Count 142 K/mm3 (140-440) 07/04/21 04:21 Lymph % (Auto) 11.1 % (13.4-35.0) L 07/03/21 03:41 [place] % (Auto) 4.6 % (0.0-7.3) 07/03/21 03:41 Eos % (Auto) 0.0 % (0.0-4.3) 07/03/21 03:41 Baso % (Auto) 0.2 % (0.0-1.8) 07/03/21 03:41 Lymph # (Auto) 0.9 K/mm3 (1.2-5.4) L 07/03/21 03:41 [place] # (Auto) 0.4 K/mm3 (0.0-0.8) 07/03/21 03:41 Eos # (Auto) 0.0 K/mm3 (0.0-0.4) 07/03/21 03:41 Baso # (Auto) 0.0 K/mm3 (0.0-0.1) 07/03/21 03:41 Seg Neutrophils % 84.1 % (40.0-70.0) H 07/03/21 03:41 Seg Neutrophils # 6.5 K/mm3 (1.8-7.7) 07/03/21 03:41 PT 14.2 Sec. (12.2-14.9) 07/02/21 10:45 INR 0.99 (0.87-1.13) 07/02/21 10:45 APTT 28.3 Sec. (24.2-36.6) 07/02/21 10:45 ABG pH 7.389 pH Units (7.350-7.450) 07/03/21 Unknown ABG pCO2 38.6 mm Hg 07/03/21 Unknown ABG pO2 184.8 mm Hg (80.0-90.0) H 07/03/21 Unknown ABG HCO3 22.8 mmol/L (20.0-26.0) 07/03/21 Unknown ABG O2 Saturation 99.2 % (95.0-99.0) H 07/03/21 Unknown ABG O2 Content 17.5 (0.0-44) 07/03/21 Unknown ABG Base Excess -1.9 mmol/L (-2.0-3.0) 07/03/21 Unknown ABG Hemoglobin 12.5 gm/dl (14.0-18.0) L 07/03/21 Unknown ABG Carboxyhemoglobin 1.2 % (0.0-5.0) 07/03/21 Unknown ABG Methemoglobin 0.6 % (0.0-1.5) 07/03/21 Unknown Oxyhemoglobin 97.4 % (95.0-99.0) 07/03/21 Unknown FiO2 35 % 07/03/21 Unknown Sodium 145 mmol/L (137-145) 07/04/21 04:21 Potassium 4.3 mmol/L (3.6-5.0) D 07/04/21 04:21 Chloride 110.2 mmol/L (98-107) H 07/04/21 04:21 Carbon Dioxide 24 mmol/L (22-30) 07/04/21 04:21 Anion Gap 15 mmol/L 07/04/21 04:21 BUN 26 mg/dL (9-20) H 07/04/21 04:21 Creatinine 0.9 mg/dL (0.8-1.3) 07/04/21 04:21 Estimated GFR > 60 ml/min 07/04/21 04:21 BUN/Creatinine Ratio 29 % 07/04/21 04:21 Glucose 126 mg/dL (75-100) H 07/04/21 04:21 POC Glucose 115 mg/dL (70-105) H 07/03/21 16:37 Hemoglobin A1c 5.0 % (4-6) 07/04/21 04:21 Lactic Acid 1.60 mmol/L (0.7-2.0) 07/02/21 23:15 Calcium 9.1 mg/dL (8.4-10.2) 07/04/21 04:21 Phosphorus 3.60 mg/dL (2.5-4.5) 07/04/21 04:21 Magnesium 2.10 mg/dL (1.7-2.3) 07/04/21 04:21 Total Bilirubin 0.90 mg/dL (0.1-1.2) 07/03/21 03:41 AST 23 units/L (5-40) 07/03/21 03:41 ALT 9 units/L (7-56) 07/03/21 03:41 Alkaline Phosphatase 61 units/L (35-129) 07/03/21 03:41 Ammonia 17.0 umol/L (25-60) L 07/02/21 10:45 Total Creatine Kinase 85 units/L (55-170) 07/02/21 10:45 CK-MB (CK-2) 2.2 ng/mL (0.0-4.0) 07/02/21 10:45 CK-MB (CK-2) Rel Index 2.5 (0-4) 07/02/21 10:45 Troponin T < 0.010 ng/mL (0.00-0.029) 07/02/21 10:45 NT-Pro-B Natriuret Pep 449.0 pg/mL (0-900) 07/02/21 10:45 Total Protein 5.8 g/dL (6.3-8.2) L 07/03/21 03:41 Albumin 3.7 g/dL (3.9-5) L 07/03/21 03:41 Albumin/Globulin Ratio 1.8 % 07/03/21 03:41 Procalcitonin < 0.05 ng/mL (<0.15) 07/02/21 10:45 TSH 3.350 mlU/mL (0.270-4.200) 07/02/21 10:45 Free T4 1.34 ng/dL (0.76-1.46) 07/02/21 10:45 Urine Color Yellow (Yellow) 07/02/21 Unknown Urine Turbidity Clear (Clear) 07/02/21 Unknown Urine pH 6.0 (5.0-7.0) 07/02/21 Unknown Ur Specific [place] 1.009 (1.003-1.030) 07/02/21 Unknown Urine Protein <15 mg/dl mg/dL (Negative) 07/02/21 Unknown Urine Glucose (UA) Neg mg/dL (Negative) 07/02/21 Unknown Urine Ketones Neg mg/dL (Negative) 07/02/21 Unknown Urine Blood Neg (Negative) 07/02/21 Unknown Urine Nitrite Neg (Negative) 07/02/21 Unknown Urine Bilirubin Neg (Negative) 07/02/21 Unknown Urine Urobilinogen < 2.0 mg/dL (<2.0) 07/02/21 Unknown Ur Leukocyte Esterase Neg (Negative) 07/02/21 Unknown Urine WBC (Auto) < 1.0 /HPF (0.0-6.0) 07/02/21 Unknown Urine RBC (Auto) < 1.0 /HPF (0.0-6.0) 07/02/21 Unknown Urine Opiates Screen Negative 07/02/21 Unknown Urine Methadone Screen Negative 07/02/21 Unknown Ur Barbiturates Screen Negative 07/02/21 Unknown Ur Phencyclidine Scrn Negative 07/02/21 Unknown Ur Amphetamines Screen Negative 07/02/21 Unknown U Benzodiazepines Scrn Negative 07/02/21 Unknown Urine Cocaine Screen Negative 07/02/21 Unknown U Marijuana (THC) Screen Negative 07/02/21 Unknown Drugs of Abuse Note Disclamer 07/02/21 Unknown Plasma/Serum Alcohol < 0.01 % (0-0.07) 07/02/21 10:45 Coronavirus (PCR) Negative (Negative) 07/02/21 14:05 Microbiology: Microbiology 07/02/21 07:18 Tracheal Aspirate Sputum Culture - Preliminary Taylor/IV: Voiding Method Indwelling Catheter Active Medications - Current Medications Current Medications: Generic Name Dose Route Start Last Admin Trade Name Freq PRN Reason Stop Dose Admin Acetaminophen 650 mg 07/02/21 14:30 Acetaminophen 325 Mg Tab PO Q4H PRN Pain MILD(1-3)/Fever >100.5/URIAS Albuterol 2.5 mg 07/02/21 17:00 Albuterol 2.5 Mg/3 Ml Nebu IH Q3HRT PRN Wheezing Arformoterol Tartrate 15 mcg 07/02/21 20:00 07/04/21 08:53 Arformoterol 15 Mcg/2 Ml Nebu IH 15 mcg Q12HRT MARTIN Administration Budesonide 0.5 mg 07/02/21 20:00 07/04/21 08:53 Budesonide 0.5 Mg/2 Ml Nebu IH 0.5 mg Q12HRT MARTIN Administration Famotidine 20 mg 07/04/21 10:00 Famotidine 20 Mg Tab PO QDAY MARTIN Heparin Sodium (Porcine) 5,000 unit 07/02/21 15:00 07/03/21 22:53 Heparin 5,000 Unit/1 Ml Vial SUB-Q 5,000 unit Q12HR MARTIN Administration Hydromorphone HCl 0.5 mg 07/02/21 14:30 Hydromorphone 1 Mg/1 Ml Inj IV Q3H PRN Pain , Severe (7-10) Hydrophilic Ointment 1 applic 07/02/21 16:00 Lip Therapy Vaseline TP Q2H PRN Dry Lips Metoclopramide HCl 10 mg 07/02/21 14:30 Metoclopramide 10 Mg/2 Ml Inj IV Q6H PRN Nausea And Vomiting Morphine Sulfate 2 mg 07/02/21 14:30 Morphine 2 Mg/1 Ml Inj IV Q4H PRN Pain, Moderate (4-6) Multi-Ingred Cream/Lotion/Oil/Oint 1 applic 07/02/21 16:00 Mineral Oil/Petrolatum, White Ophth Oint 3.5 Gm OU Q4H PRN Dry Eye(s) Ondansetron HCl 4 mg 07/02/21 14:30 Ondansetron 4 Mg/2 Ml Inj IV Q8H PRN Nausea And Vomiting Prednisone 40 mg 07/04/21 10:00 Prednisone 20 Mg Tab PO QDAY MARTIN Promethazine HCl 25 mg 07/02/21 14:30 Promethazine 25 Mg Rect Supp CO Q6H PRN N/V IF NPO AND NO IV ACCESS Senna/Docusate Sodium 1 tab 07/02/21 22:00 07/03/21 22:53 Sennosides/Docusate Sodium 8.6/50 Mg Tab FEEDTUBE 1 tab BID MARTIN Administration Sodium Chloride 10 ml 07/02/21 15:00 07/03/21 22:54 Sodium Chloride 0.9% 10 Ml Flush Syringe IV 10 ml BID MARTIN Administration Sodium Chloride 10 ml 07/02/21 14:30 Sodium Chloride 0.9% 10 Ml Flush Syringe IV PRN PRN LINE FLUSH Nutrition/Malnutrition Assess - Dietary Evaluation Nutrition/Malnutrition Findings: Nutrition Notes Start: 07/03/21 11:15 Freq: Status: Active Protocol: Document 07/03/21 11:15 JEFF (Rec: 07/03/21 11:43 JEFF [id number]) Nutrition Notes Need for Assessment generated from: MD Order Initial or Follow up Assessment Current Diagnosis COPD,Diabetes,Hypertension, Respiratory Failure, Malnutrition Other Pertinent Diagnosis Acute Encephalopathy, Bradycardia, GERD. Current Diet NPO (since 07/02 00:01). Labs/Tests 07/03: Na 146, K 3.5, Cl 107.3 . Pertinent Medications 07/03: KCl 40 mEq, others nutritionally unremarkable. Height 5 ft 8 in Weight 72.575 kg Patrick Body Weight (kg) 70.00 BMI 24.3 Weight change and time frame None provided at admission. Weight Status Appropriate Subjective/Other Information RD consult for nutritional intake assessment. Pt currently on NPO. I recommend start TF when pertinent, prescription will be ready. Pt on Mechanical Ventilation, O2 saturation @ 100%, according to Physical Assessment History notes. Pt presents Bilateral LE Pitting Edema 2+, according to Physical Assessment History notes. Pt lives at home with family, according to Progress notes. Percent of energy/protein needs met: Pt currently on NPO. Burn Absent Trauma Absent GI Symptoms None Difficulty In Swallowing Food Allergy No Skin Integrity/Comment Assessment WNL. Current % PO Other Minimum of two criteria No #1 Nutrition Diagnosis Inadequate oral intake Etiology Pt on Mechanical Ventilation. As Evidenced by Signs and Symptoms Pt currently on NPO. Is patient on ventilator? Yes Is Patient Ambulatory and/or Out of Bed No REE-([facility]-confined to bed) 1687.296 Kcal/Kg value to use for calculation 25 Approximate Energy Requirements Using 1814 kcal/Kg Calculation Used for Recommendations Kcal/kg Additional Notes Protein: 1.2-2 g/Kg ABW; 84- 140 g/day. Fluids: 1 ml/Kcal, or as per MD. Nutrition Intervention Nutrition Support: When pertinent start Promote @ 75 ml/hr. Flush: 50 ml water Q 4 hr, or as per MD. Kcal 1,790 Protein (gm) 112 Carbohydrates (gm) 233 Fat (gm) 47 Fluid (mL) 1,502 Fiber (gm) 0 % RDI: 99% Kcal, 100% AA. Goal #1 Provide at least 75% of energy /protein needs through Enteral Feeding during LOS. Goal #2 Maintain body weight within +/ -3% of admission body weight during LOS. Follow-Up By: 07/04/21 Additional Comments When pertinent, start monitoring TF tolerance and BM .
[2021-07-04] MEDS: SENNOSIDES/DOCUSATE SODIUM 8.6/50 MG TAB FEEDTUBE SCH ×2 (10:56→22:30)
[2021-07-04] MEDS: HEPARIN 5,000 UNIT/1 ML VIAL SUB-Q SCH ×2 (10:57→22:30)
[2021-07-04] MEDS: FAMOTIDINE 20 MG TAB PO SCH (10:57)
[2021-07-04] MEDS: predniSONE 20 MG TAB PO SCH (10:57)
[2021-07-04] MEDS ORDERED: traMADol 50 MG TAB PO PRN (14:26)
--- NOTE | 2021-07-04 15:04 | Progress Note ---
Assessment and Plan Cardiac arrest with ROSC Acute hypoxemic respiratory failure on MVS Small left pleural effusion Acute toxic metabolic encephalopathy DM II CAD HTN H/O Asthma H/O Gout H/O Prostate cancer - prn supplemental oxygen to keep O2 sats > 90% - prn bronchodilators (ODILIA) with pulm hygiene per RT - continue to avoid nephrotoxins, renally dose all medications - mobility protocols to prevent pressure ulcers - PT/OT as tolerated - Wound care per RN/WCT - continue accuchecks with glycemic control per SSI for target blood glucose < 180 mg/dL - Smoking cessation strongly counseled at the bedside - home oxygen evaluation at discharge - GI & VTE prophylaxis - Flu & pneumovax per protocol - prn analgesia per pain score - Pulmonary out patient follow up for PFTs and optimization of respiratory statu s - continue other care per attending / other consultants ... re-evaluate in am & prn Subjective Date of service: 07/04/21 Principal diagnosis: Cardiac arrest with ROSC; AHRF; AMS; DM II; CAD; H/O Prostate cancer Interval history: Patient is seen today for: Cardiac arrest with ROSC; AHRF; AMS; DM II; CAD; H/O Prostate cancer Seen and examined at bedside; 24hour events reviewed; nursing and respiratory care staff consulted; no adverse overnight events reported to me; resting peacefully in bed; doing well so far post extubation; slept well; denies chest pain; denies N/V/F/C Objective Vital Signs - 12hr 07/04/21 07/04/21 07/04/21 03:31 04:00 04:01 Temperature 98.5 F Pulse Rate 42 L 44 L Pulse Rate [ Anterior Bilateral] Respiratory 13 14 13 Rate Respiratory Rate [Anterior Bilateral] Blood Pressure 110/59 121/61 O2 Sat by Pulse 99 100 99 Oximetry 07/04/21 07/04/21 07/04/21 04:31 05:01 05:31 Temperature Pulse Rate 48 L 66 49 L Pulse Rate [ Anterior Bilateral] Respiratory 13 12 14 Rate Respiratory Rate [Anterior Bilateral] Blood Pressure 126/70 126/70 126/70 O2 Sat by Pulse 98 99 99 Oximetry 07/04/21 07/04/21 06:01 08:53 Temperature Pulse Rate 38 L Pulse Rate [ 56 L Anterior Bilateral] Respiratory 14 Rate Respiratory 18 Rate [Anterior Bilateral] Blood Pressure 126/70 O2 Sat by Pulse 100 Oximetry Constitutional: no acute distress Eyes: non-icteric ENT: oropharynx moist Neck: supple, no lymphadenopathy, no JVD Effort: normal Ascultation: Bilateral: clear, diminished breath sounds Percussion: Bilateral: not dull Cardiovascular: regular rate and rhythm Gastrointestinal: normoactive bowel sounds, soft, non-tender, non-distended Integumentary: normal Extremities: no cyanosis, pulses normal, no ischemia or petechiae Neurologic: non-focal exam (grossly), pupils equal and round, CN II-XII normal, motor strength normal and Psychiatric: mood appropriate, affect normal CBC and BMP: 07/04/21 04:21 07/04/21 04:21 ABG, PT/INR, D-dimer: ABG ABG pH 7.389 pH Units (7.350-7.450) 07/03/21 Unknown ABG pCO2 38.6 mm Hg 07/03/21 Unknown ABG pO2 184.8 mm Hg (80.0-90.0) H 07/03/21 Unknown ABG O2 Saturation 99.2 % (95.0-99.0) H 07/03/21 Unknown PT/INR, D-dimer PT 14.2 Sec. (12.2-14.9) 07/02/21 10:45 INR 0.99 (0.87-1.13) 07/02/21 10:45 Abnormal lab findings: Abnormal Labs 07/02/21 07/02/21 07/02/21 07:42 10:45 10:45 Hgb Lymph % (Auto) [place] % (Auto) 8.5 H Lymph # (Auto) Seg Neutrophils % ABG pO2 575.4 H ABG O2 Saturation 99.6 H ABG Hemoglobin 12.7 L Sodium Potassium Chloride 107.7 H BUN Glucose POC Glucose Ammonia Total Protein 6.1 L Albumin 3.8 L 07/02/21 07/03/21 07/03/21 10:45 03:41 03:41 Hgb Lymph % (Auto) 11.1 L [place] % (Auto) Lymph # (Auto) 0.9 L Seg Neutrophils % 84.1 H ABG pO2 ABG O2 Saturation ABG Hemoglobin Sodium 146 H Potassium 3.5 L Chloride 107.3 H BUN Glucose POC Glucose Ammonia 17.0 L Total Protein 5.8 L Albumin 3.7 L 07/03/21 07/03/21 07/03/21 05:05 16:37 Unknown Hgb Lymph % (Auto) [place] % (Auto) Lymph # (Auto) Seg Neutrophils % ABG pO2 176.7 H 184.8 H ABG O2 Saturation 99.1 H 99.2 H ABG Hemoglobin 13.1 L 12.5 L Sodium Potassium Chloride BUN Glucose POC Glucose 115 H Ammonia Total Protein Albumin 07/04/21 07/04/21 04:21 04:21 Hgb 11.6 L Lymph % (Auto) [place] % (Auto) Lymph # (Auto) Seg Neutrophils % ABG pO2 ABG O2 Saturation ABG Hemoglobin Sodium Potassium Chloride 110.2 H BUN 26 H Glucose 126 H POC Glucose Ammonia Total Protein Albumin Allied health notes reviewed: nursing
--- NOTE | 2021-07-04 15:55 | Progress Note ---
Assessment and Plan Patient is a 81-year-old with unknown past medical history, who has been seen by us previously at the hospital, but does not follow with us outpatient presented to [facility] via EMS for altered mental status Altered Mental Status Acute respiratory failure Bradycardia- SB vs ? CHB ? History of psychiatric illness (per [facility]) Echocardiogram (2017- ef 55-60%). Repeat echo pending Stress test-Lexiscan MPI 09/01/2017: Negative for acute ischemia Echo 07/02/2021-EF 55 to 60% mild diastolic dysfunction is present impaired relaxation pattern. Right ventricular systolic function is normal. Plan: EKG 06/22/21-sinus bradycardia rate 56, prolonged DC interval, no acute ischemic changes. Troponin negative x1. BNP negative. Electrolytes acceptable. Potassium 4.1, magnesium 2.2 Avoid AV malika blocking agents Consider EP consultation if reversible causes not found for bradycardia and does not improve Please call if patient becomes hemodynamically unstable. At this time patiente remains hemodynamically stable. Will plan for Lexiscan MPI stress test on Wednesday Patient seen and examined with Dr. Avila, who agrees with assessment and plan of care of this patient. - Patient Problems (1) Altered mental status Current Visit: Yes Status: Acute (2) Acute encephalopathy Current Visit: Yes Status: Acute (3) Acute respiratory failure with hypoxia Current Visit: Yes Status: Acute (4) HTN (hypertension) Current Visit: Yes Status: Chronic Qualifiers: Hypertension type: primary hypertension Qualified Code(s): I10 - Essential (primary) hypertension (5) T2DM (type 2 diabetes mellitus) Current Visit: Yes Status: Chronic Qualifiers: Diabetes mellitus parts counterman insulin use: unspecified penitentiary insulin use status Subjective Date of service: 07/04/21 Principal diagnosis: Cardiac arrest with ROSC; AHRF; AMS; DM II; CAD; H/O Prostate cancer Interval history: Patient seen chair in no acute distress. Patient family member at bedside Patient remains sinus bradycardia 50s on monitor and episodes into sinus 40s and 60s Objective Vital Signs Temp Pulse Pulse Pulse Resp Resp BP 07/04/21 15:30 49 L 14 155/72 07/04/21 15:00 47 L 11 L 160/87 07/04/21 14:30 50 L 14 140/72 07/04/21 14:22 74 136/80 07/04/21 12:30 50 L 12 136/80 07/04/21 12:00 98.6 F 46 L 46 L 19 116/61 07/04/21 11:30 14 115/61 07/04/21 11:00 54 L 17 116/59 07/04/21 10:30 47 L 13 07/04/21 10:00 53 L 15 07/04/21 09:30 57 L 17 07/04/21 09:00 60 15 07/04/21 08:53 56 L 18 07/04/21 08:30 47 L 15 07/04/21 08:00 98.4 F 47 L 47 L 9 L 07/04/21 07:30 41 L 12 07/04/21 07:00 44 L 12 07/04/21 06:31 47 L 12 126/70 07/04/21 06:01 38 L 14 126/70 07/04/21 05:31 49 L 14 126/70 07/04/21 05:01 66 12 126/70 07/04/21 04:31 48 L 13 126/70 07/04/21 04:01 44 L 13 121/61 07/04/21 04:00 98.5 F 14 07/04/21 03:31 42 L 13 110/59 07/04/21 03:00 40 L 13 114/61 07/04/21 02:31 48 L 13 113/71 07/04/21 02:01 62 15 130/64 07/04/21 01:31 53 L 12 123/62 07/04/21 01:00 51 L 14 125/63 07/04/21 00:30 53 L 16 134/53 07/04/21 00:01 49 L 13 131/63 07/04/21 00:00 98.1 F 14 07/03/21 23:48 49 L 07/03/21 23:30 51 L 16 143/67 07/03/21 23:01 57 L 16 124/67 07/03/21 22:30 45 L 16 136/62 07/03/21 22:01 65 13 137/68 07/03/21 21:30 64 12 112/67 07/03/21 21:01 74 11 L 117/80 07/03/21 20:49 55 L 14 132/72 07/03/21 20:44 67 16 07/03/21 20:31 72 15 143/79 07/03/21 20:00 98.2 F 64 14 119/59 07/03/21 19:30 55 L 16 117/67 07/03/21 19:01 62 12 122/61 07/03/21 18:30 59 L 13 127/65 07/03/21 18:01 65 14 130/58 07/03/21 17:31 67 10 L 115/52 07/03/21 17:00 72 15 122/71 07/03/21 16:57 98.5 F 07/03/21 16:30 69 17 133/70 07/03/21 16:01 53 L 16 136/64 Pulse Ox 07/04/21 15:30 99 07/04/21 15:00 100 07/04/21 14:30 99 07/04/21 14:22 07/04/21 12:30 99 07/04/21 12:00 91 07/04/21 11:30 99 07/04/21 11:00 100 07/04/21 10:30 99 07/04/21 10:00 100 07/04/21 09:30 100 07/04/21 09:00 100 07/04/21 08:53 07/04/21 08:30 100 07/04/21 08:00 99 07/04/21 07:30 99 07/04/21 07:00 99 07/04/21 06:31 100 07/04/21 06:01 100 07/04/21 05:31 99 07/04/21 05:01 99 07/04/21 04:31 98 07/04/21 04:01 99 07/04/21 04:00 100 07/04/21 03:31 99 07/04/21 03:00 99 07/04/21 02:31 100 07/04/21 02:01 99 07/04/21 01:31 100 07/04/21 01:00 100 07/04/21 00:30 100 07/04/21 00:01 100 07/04/21 00:00 100 07/03/21 23:48 07/03/21 23:30 100 07/03/21 23:01 99 07/03/21 22:30 99 07/03/21 22:01 99 07/03/21 21:30 100 07/03/21 21:01 98 07/03/21 20:49 100 07/03/21 20:44 07/03/21 20:31 100 07/03/21 20:00 100 07/03/21 19:30 100 07/03/21 19:01 98 07/03/21 18:30 99 07/03/21 18:01 100 07/03/21 17:31 98 07/03/21 17:00 89 07/03/21 16:57 07/03/21 16:30 98 07/03/21 16:01 99 - Physical Examination General: No Apparent Distress HEENT: Positive: Normocephaly, Mucus Membranes Dry Neck: Positive: trachea midline Cardiac: Positive: Regular Rhythm, Bradycardia Lungs: Positive: Normal Breath Sounds Neuro: Positive: Grossly Intact Abdomen: Positive: Active Bowel Sounds Skin: Negative: Rash Extremities: Present: upper extr. pulses, edema - Labs and Meds CBC 07/04/21 Range/Units 04:21 WBC 8.6 (4.5-11.0) K/mm3 RBC 3.91 (3.65-5.03) M/mm3 Hgb 11.6 L (11.8-15.2) gm/dl Hct 35.6 (35.5-45.6) % Plt Count 142 (140-440) K/mm3 Comprehensive Metabolic Panel 07/04/21 Range/Units 04:21 Sodium 145 (137-145) mmol/L Potassium 4.3 D (3.6-5.0) mmol/L Chloride 110.2 H (98-107) mmol/L Carbon Dioxide 24 (22-30) mmol/L BUN 26 H (9-20) mg/dL Creatinine 0.9 (0.8-1.3) mg/dL Glucose 126 H (75-100) mg/dL Calcium 9.1 (8.4-10.2) mg/dL - Imaging and Cardiology EKG: image reviewed (SB) Echo: report reviewed - Telemetry EKG Rhythm: Sinus Bradycardia - EKG Sinus rhythms and dysrhythmias: sinus bradycardia (no acute ischemic changes) - Allied health notes Allied health notes reviewed: nursing
--- NOTE | 2021-07-04 16:54 | Electrocardiograph Report ---
[facility] Test Date: 2021-07-02 Test Time: 07:02:47 Pat Name: NIMCO LESTER Department: Room: A260 1 Gender: M Food Chemist: GREGORY : 1940 Requested By: RABIA COHN Order Number: [id number] Reading MD: Keiko Blank Measurements Intervals [place] Rate: 56 P: 15 ND: 232 QRS: -34 QRSD: 86 T: QT: 418 QTc: 400 Interpretive Statements Marked sinus arrhythmia Prolonged ND interval Left axis deviation No previous ECG available for comparison Electronically Signed On 07-04-2021 16:53:49 EDT by Keiko Blank
[2021-07-04] MEDS ORDERED: ATROPINE 0.4 MG/1 ML INJ IV ONE (22:34)
[2021-07-05] MEDS: SODIUM CHLORIDE 0.9% 1000 ML 1,000 ML IV SCH ×2 (04:56→23:00)
[2021-07-05] MEDS: ARFORMOTEROL 15 MCG/2 ML NEBU IH SCH ×2 (08:40→22:00)
[2021-07-05] MEDS: BUDESONIDE 0.5 MG/2 ML NEBU IH SCH ×2 (08:40→22:00)
--- NOTE | 2021-07-05 08:48 | Progress Note ---
Assessment and Plan Assessment and plan: 07/03: Patient is AAO, following commands, on the vent. Off sedation and tolerating PST. This am ABG and CXR noted. Plan for possible extubation today. Patient remains bradycardic this am, possible HB noted on the monitor, VSS. Cardiology is on consult, awaiting their recommendations. Will hold IV antiobiotic for now, patient remains afebrile with no leukocytosis, lactic and procal normal. 07/04: S/p extubation, stable on RA. Remains andres on the monitor, HR as low as 38 overnight, VSS. Awaiting Cardio final recommendation. Patient is stable for transfer to Telemetry once a bed is available. 07/05: Patient stable. Continues to have asymptomatic bradycardia. Discussed with cardiology, no plans to address bradycardia at this time. Plan for stress test Wednesday. Assessment and Plan #Acute Hypoxic Respiratory Failure #COPD with Exacerbation #Pleural Effusion - Found unresponsive at home, per family they started CPR - EMS found patient bradycardic and unresponsive - 07/03 s/p extubation, now stable on RA - Continue Steroids and Nebs - Continue SPO2 monitoring for SPO2 goal above 92% #Bradycardia, asymptomatic #HTN (hypertension) -initial EKG unremarkable, showing SB -continue BP medications -Cardiology consulted, plan for stress test Wednesday #Acute Encephalopathy-resolved - Etiology unclear, probably due to bradycardia - Urine drug screen negative, No focus of infection identified - CT head with no acute intracranial abnormality #T2DM (type 2 diabetes mellitus) - hemoglobin A1c- 5.0 - BG check and SSI Q6hrs - Avoid hypoglycemia #GERD (Gastroesophageal Reflux Disease) -Continue Pepcid #Malnutrition -Nutrition consulted for supplementation #Advanced care planning -Disease education conducted, care plan discussed, diagnoses discussed, prognosis discussed, and patient who acknowledges understanding with care plan -Time: +30 min Hospitalist Physical - Physical exam Narrative exam: GENERAL: Well-developed well-nourished. In no acute distress. HEENT: Normocephalic. Atraumatic. NECK: Supple. CHEST/LUNGS: CTAB on room air HEART/CARDIOVASCULAR: Bradycardic. No murmur, rubs or gallops appreciated. ABDOMEN: +BS. NT/ND. NEURO: No focal motor deficit. Follows all commands. MUSCULOSKELETAL: No joint effusion EXTREMITIES: No cyanosis, clubbing or edema. PSYCH: Cooperative. - Constitutional Vitals: Temp Pulse Resp BP Pulse Ox 97.6 F 51 L 16 135/70 98 07/05/21 07:45 07/05/21 07:45 07/05/21 07:45 07/05/21 07:45 07/05/21 07:45 General appearance: Present: no acute distress, well-nourished HEART Score - HEART Score Troponin: Troponin T < 0.010 ng/mL (0.00-0.029) 07/02/21 10:45 Results - Labs CBC & Chem 7: 07/04/21 04:21 07/04/21 04:21 Labs: Laboratory Last Values WBC 8.6 K/mm3 (4.5-11.0) 07/04/21 04:21 RBC 3.91 M/mm3 (3.65-5.03) 07/04/21 04:21 Hgb 11.6 gm/dl (11.8-15.2) L 07/04/21 04:21 Hct 35.6 % (35.5-45.6) 07/04/21 04:21 MCV 91 fl (84-94) 07/04/21 04:21 MCH 30 pg (28-32) 07/04/21 04:21 MCHC 33 % (32-34) 07/04/21 04:21 RDW 15.1 % (13.2-15.2) 07/04/21 04:21 Plt Count 142 K/mm3 (140-440) 07/04/21 04:21 Lymph % (Auto) 11.1 % (13.4-35.0) L 07/03/21 03:41 [place] % (Auto) 4.6 % (0.0-7.3) 07/03/21 03:41 Eos % (Auto) 0.0 % (0.0-4.3) 07/03/21 03:41 Baso % (Auto) 0.2 % (0.0-1.8) 07/03/21 03:41 Lymph # (Auto) 0.9 K/mm3 (1.2-5.4) L 07/03/21 03:41 [place] # (Auto) 0.4 K/mm3 (0.0-0.8) 07/03/21 03:41 Eos # (Auto) 0.0 K/mm3 (0.0-0.4) 07/03/21 03:41 Baso # (Auto) 0.0 K/mm3 (0.0-0.1) 07/03/21 03:41 Seg Neutrophils % 84.1 % (40.0-70.0) H 07/03/21 03:41 Seg Neutrophils # 6.5 K/mm3 (1.8-7.7) 07/03/21 03:41 PT 14.2 Sec. (12.2-14.9) 07/02/21 10:45 INR 0.99 (0.87-1.13) 07/02/21 10:45 APTT 28.3 Sec. (24.2-36.6) 07/02/21 10:45 ABG pH 7.389 pH Units (7.350-7.450) 07/03/21 Unknown ABG pCO2 38.6 mm Hg 07/03/21 Unknown ABG pO2 184.8 mm Hg (80.0-90.0) H 07/03/21 Unknown ABG HCO3 22.8 mmol/L (20.0-26.0) 07/03/21 Unknown ABG O2 Saturation 99.2 % (95.0-99.0) H 07/03/21 Unknown ABG O2 Content 17.5 (0.0-44) 07/03/21 Unknown ABG Base Excess -1.9 mmol/L (-2.0-3.0) 07/03/21 Unknown ABG Hemoglobin 12.5 gm/dl (14.0-18.0) L 07/03/21 Unknown ABG Carboxyhemoglobin 1.2 % (0.0-5.0) 07/03/21 Unknown ABG Methemoglobin 0.6 % (0.0-1.5) 07/03/21 Unknown Oxyhemoglobin 97.4 % (95.0-99.0) 07/03/21 Unknown FiO2 35 % 07/03/21 Unknown Sodium 145 mmol/L (137-145) 07/04/21 04:21 Potassium 4.3 mmol/L (3.6-5.0) D 07/04/21 04:21 Chloride 110.2 mmol/L (98-107) H 07/04/21 04:21 Carbon Dioxide 24 mmol/L (22-30) 07/04/21 04:21 Anion Gap 15 mmol/L 07/04/21 04:21 BUN 26 mg/dL (9-20) H 07/04/21 04:21 Creatinine 0.9 mg/dL (0.8-1.3) 07/04/21 04:21 Estimated GFR > 60 ml/min 07/04/21 04:21 BUN/Creatinine Ratio 29 % 07/04/21 04:21 Glucose 126 mg/dL (75-100) H 07/04/21 04:21 POC Glucose 120 mg/dL (70-105) H 07/04/21 21:08 Hemoglobin A1c 5.0 % (4-6) 07/04/21 04:21 Lactic Acid 1.60 mmol/L (0.7-2.0) 07/02/21 23:15 Calcium 9.1 mg/dL (8.4-10.2) 07/04/21 04:21 Phosphorus 3.60 mg/dL (2.5-4.5) 07/04/21 04:21 Magnesium 2.10 mg/dL (1.7-2.3) 07/04/21 04:21 Total Bilirubin 0.90 mg/dL (0.1-1.2) 07/03/21 03:41 AST 23 units/L (5-40) 07/03/21 03:41 ALT 9 units/L (7-56) 07/03/21 03:41 Alkaline Phosphatase 61 units/L (35-129) 07/03/21 03:41 Ammonia 17.0 umol/L (25-60) L 07/02/21 10:45 Total Creatine Kinase 85 units/L (55-170) 07/02/21 10:45 CK-MB (CK-2) 2.2 ng/mL (0.0-4.0) 07/02/21 10:45 CK-MB (CK-2) Rel Index 2.5 (0-4) 07/02/21 10:45 Troponin T < 0.010 ng/mL (0.00-0.029) 07/02/21 10:45 NT-Pro-B Natriuret Pep 449.0 pg/mL (0-900) 07/02/21 10:45 Total Protein 5.8 g/dL (6.3-8.2) L 07/03/21 03:41 Albumin 3.7 g/dL (3.9-5) L 07/03/21 03:41 Albumin/Globulin Ratio 1.8 % 07/03/21 03:41 Procalcitonin < 0.05 ng/mL (<0.15) 07/02/21 10:45 TSH 3.350 mlU/mL (0.270-4.200) 07/02/21 10:45 Free T4 1.34 ng/dL (0.76-1.46) 07/02/21 10:45 Urine Color Yellow (Yellow) 07/02/21 Unknown Urine Turbidity Clear (Clear) 07/02/21 Unknown Urine pH 6.0 (5.0-7.0) 07/02/21 Unknown Ur Specific [place] 1.009 (1.003-1.030) 07/02/21 Unknown Urine Protein <15 mg/dl mg/dL (Negative) 07/02/21 Unknown Urine Glucose (UA) Neg mg/dL (Negative) 07/02/21 Unknown Urine Ketones Neg mg/dL (Negative) 07/02/21 Unknown Urine Blood Neg (Negative) 07/02/21 Unknown Urine Nitrite Neg (Negative) 07/02/21 Unknown Urine Bilirubin Neg (Negative) 07/02/21 Unknown Urine Urobilinogen < 2.0 mg/dL (<2.0) 07/02/21 Unknown Ur Leukocyte Esterase Neg (Negative) 07/02/21 Unknown Urine WBC (Auto) < 1.0 /HPF (0.0-6.0) 07/02/21 Unknown Urine RBC (Auto) < 1.0 /HPF (0.0-6.0) 07/02/21 Unknown Urine Opiates Screen Negative 07/02/21 Unknown Urine Methadone Screen Negative 07/02/21 Unknown Ur Barbiturates Screen Negative 07/02/21 Unknown Ur Phencyclidine Scrn Negative 07/02/21 Unknown Ur Amphetamines Screen Negative 07/02/21 Unknown U Benzodiazepines Scrn Negative 07/02/21 Unknown Urine Cocaine Screen Negative 07/02/21 Unknown U Marijuana (THC) Screen Negative 07/02/21 Unknown Drugs of Abuse Note Disclamer 07/02/21 Unknown Plasma/Serum Alcohol < 0.01 % (0-0.07) 07/02/21 10:45 Coronavirus (PCR) Negative (Negative) 07/02/21 14:05 Microbiology: Microbiology 07/02/21 07:18 Tracheal Aspirate Sputum Culture - Final Taylor/IV: Voiding Method Indwelling Catheter Active Medications - Current Medications Current Medications: Generic Name Dose Route Start Last Admin Trade Name Freq PRN Reason Stop Dose Admin Acetaminophen 650 mg 07/02/21 14:30 Acetaminophen 325 Mg Tab PO Q4H PRN Pain MILD(1-3)/Fever >100.5/URIAS Albuterol 2.5 mg 07/02/21 17:00 Albuterol 2.5 Mg/3 Ml Nebu IH Q3HRT PRN Wheezing Arformoterol Tartrate 15 mcg 07/02/21 20:00 07/04/21 22:40 Arformoterol 15 Mcg/2 Ml Nebu IH 15 mcg Q12HRT MARTIN Administration Budesonide 0.5 mg 07/02/21 20:00 07/04/21 22:40 Budesonide 0.5 Mg/2 Ml Nebu IH 0.5 mg Q12HRT MARTIN Administration Famotidine 20 mg 07/04/21 10:00 07/04/21 10:57 Famotidine 20 Mg Tab PO 20 mg QDAY MARTIN Administration Heparin Sodium (Porcine) 5,000 unit 07/02/21 15:00 07/04/21 22:30 Heparin 5,000 Unit/1 Ml Vial SUB-Q 5,000 unit Q12HR MARTIN Administration Hydrophilic Ointment 1 applic 07/02/21 16:00 Lip Therapy Vaseline TP Q2H PRN Dry Lips Sodium Chloride 1,000 mls @ 75 mls/hr 07/05/21 04:30 07/05/21 04:56 Nacl 0.9% 1000 Ml IV 75 mls/hr DIRECT MARTIN Administration Metoclopramide HCl 10 mg 07/02/21 14:30 Metoclopramide 10 Mg/2 Ml Inj IV Q6H PRN Nausea And Vomiting Multi-Ingred Cream/Lotion/Oil/Oint 1 applic 07/02/21 16:00 Mineral Oil/Petrolatum, White Ophth Oint 3.5 Gm OU Q4H PRN Dry Eye(s) Ondansetron HCl 4 mg 07/02/21 14:30 Ondansetron 4 Mg/2 Ml Inj IV Q8H PRN Nausea And Vomiting Prednisone 40 mg 07/04/21 10:00 07/04/21 10:57 Prednisone 20 Mg Tab PO 40 mg QDAY MARTIN Administration Senna/Docusate Sodium 1 tab 07/02/21 22:00 07/04/21 22:30 Sennosides/Docusate Sodium 8.6/50 Mg Tab FEEDTUBE 1 tab BID MARTIN Administration Sodium Chloride 10 ml 07/02/21 15:00 07/04/21 22:30 Sodium Chloride 0.9% 10 Ml Flush Syringe IV 10 ml BID MARTIN Administration Sodium Chloride 10 ml 07/02/21 14:30 Sodium Chloride 0.9% 10 Ml Flush Syringe IV PRN PRN LINE FLUSH Tramadol HCl 50 mg 07/04/21 14:26 Tramadol 50 Mg Tab PO Q6H PRN Pain, Moderate (4-6) Nutrition/Malnutrition Assess - Dietary Evaluation Nutrition/Malnutrition Findings: Nutrition Notes Start: 07/03/21 11:15 Freq: Status: Active Protocol: Document 07/04/21 10:26 BRENNA (Rec: 07/04/21 10:29 REPLACED BY [facility] [email or web address]) Nutrition Notes Initial or Follow up Reassessment Current Diagnosis Diabetes,Hypertension Other Pertinent Diagnosis COPD exacerbation, Bradycardia Current Diet Consistent CHO GI soft with chopped meats Labs/Tests Reviewed Pertinent Medications Prednisone Height 5 ft 8 in Weight 72.575 kg [place] Body Weight (kg) 70.00 BMI 24.3 Weight Status Appropriate Subjective/Other Information Pt extubated yesterday; diet advanced last pm. Burn Absent Trauma Absent #1 Nutrition Diagnosis Inadequate oral intake As Evidenced by Signs and Symptoms pt extubated and diet advanced Diagnosis Progress(for reassessment Improved documentation) Is patient on ventilator? No Is Patient Ambulatory and/or Out of Bed No [facility] [phone] Calculation Used for Recommendations [facility] Additional Notes Pro needs 1.2-2g/k-145g/ day Fluid needs 1ml/kcal Nutrition Intervention Change Diet Order: Continue current diet order Goal #1 PO intake to meet at least 75% energy and pro needs Follow-Up By: 07/07/21 Additional Comments F/U: intakes
[2021-07-05] MEDS: SENNOSIDES/DOCUSATE SODIUM 8.6/50 MG TAB FEEDTUBE SCH ×2 (09:49→21:20)
[2021-07-05] MEDS: HEPARIN 5,000 UNIT/1 ML VIAL SUB-Q SCH ×2 (09:49→21:20)
[2021-07-05] MEDS: predniSONE 20 MG TAB PO SCH (09:49)
--- NOTE | 2021-07-05 10:37 | Progress Note ---
Assessment and Plan Patient is a 81-year-old with unknown past medical history, who has been seen by us previously at the hospital, but does not follow with us outpatient presented to [facility] via EMS for altered mental status Altered Mental Status Acute respiratory failure Asymptomatic sinus bradycardia -heart rate hovering in the 40s and 50s. No evidence of AV block. ? History of psychiatric illness (per [facility] records) Echocardiogram (2017- ef 55-60%). Repeat echo pending Stress test-Lexiscan MPI 09/01/2017: Negative for acute ischemia Echo 07/02/2021-EF 55 to 60% mild diastolic dysfunction is present impaired relaxation pattern. Right ventricular systolic function is normal. Plan: Patient remains normotensive and asymptomatic. EKG 06/22/21-sinus bradycardia rate 56, prolonged IN interval, no acute ischemic changes. Troponin negative x1. BNP negative. Electrolytes acceptable. Potassium 4.1, magnesium 2.2 Avoid AV malika blocking agents Will plan for Lexiscan MPI stress test on Wednesday Subjective Principal diagnosis: Cardiac arrest with ROSC; AHRF; AMS; DM II; CAD; H/O Prostate cancer Interval history: No complaints. No lightheadedness or dizziness. Objective Vital Signs Temp Pulse Pulse Pulse Pulse Resp Resp 07/05/21 08:40 51 L 16 07/05/21 07:45 97.6 F 51 L 16 07/05/21 04:00 07/05/21 03:54 98.7 F 41 L 18 07/05/21 00:43 97.3 F L 46 L 18 07/05/21 00:00 07/04/21 20:00 56 L 07/04/21 19:52 99.0 F 43 L 18 07/04/21 17:30 64 11 L 07/04/21 17:00 53 L 12 07/04/21 16:30 50 L 11 L 07/04/21 16:00 98.3 F 46 L 46 L 11 L 07/04/21 15:30 49 L 14 07/04/21 15:00 47 L 11 L 07/04/21 14:30 50 L 14 07/04/21 14:22 74 07/04/21 12:30 50 L 12 07/04/21 12:00 98.6 F 46 L 46 L 19 07/04/21 11:30 14 07/04/21 11:00 54 L 17 Resp BP Pulse Ox 07/05/21 08:40 07/05/21 07:45 135/70 98 07/05/21 04:00 99 07/05/21 03:54 119/47 99 07/05/21 00:43 112/49 99 07/05/21 00:00 99 07/04/21 20:00 18 99 07/04/21 19:52 147/73 99 07/04/21 17:30 143/74 100 07/04/21 17:00 147/70 92 07/04/21 16:30 133/71 98 07/04/21 16:00 143/71 100 07/04/21 15:30 155/72 99 07/04/21 15:00 160/87 100 07/04/21 14:30 140/72 99 07/04/21 14:22 136/80 07/04/21 12:30 136/80 99 07/04/21 12:00 116/61 91 07/04/21 11:30 115/61 99 07/04/21 11:00 116/59 100 - Physical Examination General: No Apparent Distress HEENT: Positive: Normocephaly, Mucus Membranes Dry Neck: Positive: trachea midline Neuro: Positive: Grossly Intact Abdomen: Positive: Active Bowel Sounds Skin: Negative: Rash Extremities: Present: upper extr. pulses, edema - Imaging and Cardiology EKG: image reviewed (SB) Echo: report reviewed - EKG Sinus rhythms and dysrhythmias: sinus bradycardia (no acute ischemic changes) - Allied health notes Allied health notes reviewed: nursing
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
[2021-07-06] MEDS: ARFORMOTEROL 15 MCG/2 ML NEBU IH SCH ×2 (07:39→20:35)
[2021-07-06] MEDS: BUDESONIDE 0.5 MG/2 ML NEBU IH SCH ×2 (07:39→20:35)
--- NOTE | 2021-07-06 08:00 | Progress Note ---
Assessment and Plan Assessment and plan: 07/03: Patient is AAO, following commands, on the vent. Off sedation and tolerating PST. This am ABG and CXR noted. Plan for possible extubation today. Patient remains bradycardic this am, possible HB noted on the monitor, VSS. Cardiology is on consult, awaiting their recommendations. Will hold IV antiobiotic for now, patient remains afebrile with no leukocytosis, lactic and procal normal. 07/04: S/p extubation, stable on RA. Remains andres on the monitor, HR as low as 38 overnight, VSS. Awaiting Cardio final recommendation. Patient is stable for transfer to Telemetry once a bed is available. 07/05: Patient stable. Continues to have asymptomatic bradycardia. Discussed with cardiology, no plans to address bradycardia at this time. Plan for stress test Wednesday. Assessment and Plan #Acute Hypoxic Respiratory Failure #COPD with Exacerbation #Pleural Effusion - Found unresponsive at home, per family they started CPR - EMS found patient bradycardic and unresponsive - 07/03 s/p extubation, now stable on RA - Continue Steroids and Nebs - Continue SPO2 monitoring for SPO2 goal above 92% #Bradycardia, asymptomatic #HTN (hypertension) -initial EKG unremarkable, showing SB -continue BP medications, avoid AV malika blocking agents -Cardiology consulted, plan for stress test tomorrow #Acute Encephalopathy-resolved - Etiology unclear, probably due to bradycardia - Urine drug screen negative, No focus of infection identified - CT head with no acute intracranial abnormality #T2DM (type 2 diabetes mellitus) - hemoglobin A1c- 5.0 - BG check and SSI Q6hrs - Avoid hypoglycemia #GERD (Gastroesophageal Reflux Disease) -Continue Pepcid #Malnutrition -Nutrition consulted for supplementation #Advanced care planning -Disease education conducted, care plan discussed, diagnoses discussed, prognosis discussed, and patient who acknowledges understanding with care plan -Time: +30 min History Interval history: No acute events overnight. Patient awaiting stress test tomorrow. He has no complaints. Hospitalist Physical - Physical exam Narrative exam: GENERAL: Well-developed well-nourished. In no acute distress. HEENT: Normocephalic. Atraumatic. NECK: Supple. CHEST/LUNGS: CTAB on room air HEART/CARDIOVASCULAR: Bradycardic. No murmur, rubs or gallops appreciated. ABDOMEN: +BS. NT/ND. NEURO: No focal motor deficit. Follows all commands. MUSCULOSKELETAL: No joint effusion EXTREMITIES: No cyanosis, clubbing or edema. PSYCH: Cooperative. - Constitutional Vitals: Temp Pulse Resp BP Pulse Ox 98.5 F 69 18 156/76 98 07/05/21 19:25 07/05/21 21:34 07/05/21 20:00 07/05/21 19:25 07/05/21 21:34 General appearance: Present: no acute distress, well-nourished HEART Score - HEART Score Troponin: Troponin T < 0.010 ng/mL (0.00-0.029) 07/02/21 10:45 Results - Labs CBC & Chem 7: 07/04/21 04:21 07/04/21 04:21 Labs: Laboratory Last Values WBC 8.6 K/mm3 (4.5-11.0) 07/04/21 04:21 RBC 3.91 M/mm3 (3.65-5.03) 07/04/21 04:21 Hgb 11.6 gm/dl (11.8-15.2) L 07/04/21 04:21 Hct 35.6 % (35.5-45.6) 07/04/21 04:21 MCV 91 fl (84-94) 07/04/21 04:21 MCH 30 pg (28-32) 07/04/21 04:21 MCHC 33 % (32-34) 07/04/21 04:21 RDW 15.1 % (13.2-15.2) 07/04/21 04:21 Plt Count 142 K/mm3 (140-440) 07/04/21 04:21 Lymph % (Auto) 11.1 % (13.4-35.0) L 07/03/21 03:41 [place] % (Auto) 4.6 % (0.0-7.3) 07/03/21 03:41 Eos % (Auto) 0.0 % (0.0-4.3) 07/03/21 03:41 Baso % (Auto) 0.2 % (0.0-1.8) 07/03/21 03:41 Lymph # (Auto) 0.9 K/mm3 (1.2-5.4) L 07/03/21 03:41 Atkinson # (Auto) 0.4 K/mm3 (0.0-0.8) 07/03/21 03:41 Eos # (Auto) 0.0 K/mm3 (0.0-0.4) 07/03/21 03:41 Baso # (Auto) 0.0 K/mm3 (0.0-0.1) 07/03/21 03:41 Seg Neutrophils % 84.1 % (40.0-70.0) H 07/03/21 03:41 Seg Neutrophils # 6.5 K/mm3 (1.8-7.7) 07/03/21 03:41 PT 14.2 Sec. (12.2-14.9) 07/02/21 10:45 INR 0.99 (0.87-1.13) 07/02/21 10:45 APTT 28.3 Sec. (24.2-36.6) 07/02/21 10:45 ABG pH 7.389 pH Units (7.350-7.450) 07/03/21 Unknown ABG pCO2 38.6 mm Hg 07/03/21 Unknown ABG pO2 184.8 mm Hg (80.0-90.0) H 07/03/21 Unknown ABG HCO3 22.8 mmol/L (20.0-26.0) 07/03/21 Unknown ABG O2 Saturation 99.2 % (95.0-99.0) H 07/03/21 Unknown ABG O2 Content 17.5 (0.0-44) 07/03/21 Unknown ABG Base Excess -1.9 mmol/L (-2.0-3.0) 07/03/21 Unknown ABG Hemoglobin 12.5 gm/dl (14.0-18.0) L 07/03/21 Unknown ABG Carboxyhemoglobin 1.2 % (0.0-5.0) 07/03/21 Unknown ABG Methemoglobin 0.6 % (0.0-1.5) 07/03/21 Unknown Oxyhemoglobin 97.4 % (95.0-99.0) 07/03/21 Unknown FiO2 35 % 07/03/21 Unknown Sodium 145 mmol/L (137-145) 07/04/21 04:21 Potassium 4.3 mmol/L (3.6-5.0) D 07/04/21 04:21 Chloride 110.2 mmol/L (98-107) H 07/04/21 04:21 Carbon Dioxide 24 mmol/L (22-30) 07/04/21 04:21 Anion Gap 15 mmol/L 07/04/21 04:21 BUN 26 mg/dL (9-20) H 07/04/21 04:21 Creatinine 0.9 mg/dL (0.8-1.3) 07/04/21 04:21 Estimated GFR > 60 ml/min 07/04/21 04:21 BUN/Creatinine Ratio 29 % 07/04/21 04:21 Glucose 126 mg/dL (75-100) H 07/04/21 04:21 POC Glucose 143 mg/dL (70-105) H 07/05/21 20:36 Hemoglobin A1c 5.0 % (4-6) 07/04/21 04:21 Lactic Acid 1.60 mmol/L (0.7-2.0) 07/02/21 23:15 Calcium 9.1 mg/dL (8.4-10.2) 07/04/21 04:21 Phosphorus 3.60 mg/dL (2.5-4.5) 07/04/21 04:21 Magnesium 2.10 mg/dL (1.7-2.3) 07/04/21 04:21 Total Bilirubin 0.90 mg/dL (0.1-1.2) 07/03/21 03:41 AST 23 units/L (5-40) 07/03/21 03:41 ALT 9 units/L (7-56) 07/03/21 03:41 Alkaline Phosphatase 61 units/L (35-129) 07/03/21 03:41 Ammonia 17.0 umol/L (25-60) L 07/02/21 10:45 Total Creatine Kinase 85 units/L (55-170) 07/02/21 10:45 CK-MB (CK-2) 2.2 ng/mL (0.0-4.0) 07/02/21 10:45 CK-MB (CK-2) Rel Index 2.5 (0-4) 07/02/21 10:45 Troponin T < 0.010 ng/mL (0.00-0.029) 07/02/21 10:45 NT-Pro-B Natriuret Pep 449.0 pg/mL (0-900) 07/02/21 10:45 Total Protein 5.8 g/dL (6.3-8.2) L 07/03/21 03:41 Albumin 3.7 g/dL (3.9-5) L 07/03/21 03:41 Albumin/Globulin Ratio 1.8 % 07/03/21 03:41 Procalcitonin < 0.05 ng/mL (<0.15) 07/02/21 10:45 TSH 3.350 mlU/mL (0.270-4.200) 07/02/21 10:45 Free T4 1.34 ng/dL (0.76-1.46) 07/02/21 10:45 Urine Color Yellow (Yellow) 07/02/21 Unknown Urine Turbidity Clear (Clear) 07/02/21 Unknown Urine pH 6.0 (5.0-7.0) 07/02/21 Unknown Ur Specific [place] 1.009 (1.003-1.030) 07/02/21 Unknown Urine Protein <15 mg/dl mg/dL (Negative) 07/02/21 Unknown Urine Glucose (UA) Neg mg/dL (Negative) 07/02/21 Unknown Urine Ketones Neg mg/dL (Negative) 07/02/21 Unknown Urine Blood Neg (Negative) 07/02/21 Unknown Urine Nitrite Neg (Negative) 07/02/21 Unknown Urine Bilirubin Neg (Negative) 07/02/21 Unknown Urine Urobilinogen < 2.0 mg/dL (<2.0) 07/02/21 Unknown Ur Leukocyte Esterase Neg (Negative) 07/02/21 Unknown Urine WBC (Auto) < 1.0 /HPF (0.0-6.0) 07/02/21 Unknown Urine RBC (Auto) < 1.0 /HPF (0.0-6.0) 07/02/21 Unknown Urine Opiates Screen Negative 07/02/21 Unknown Urine Methadone Screen Negative 07/02/21 Unknown Ur Barbiturates Screen Negative 07/02/21 Unknown Ur Phencyclidine Scrn Negative 07/02/21 Unknown Ur Amphetamines Screen Negative 07/02/21 Unknown U Benzodiazepines Scrn Negative 07/02/21 Unknown Urine Cocaine Screen Negative 07/02/21 Unknown U Marijuana (THC) Screen Negative 07/02/21 Unknown Drugs of Abuse Note Disclamer 07/02/21 Unknown Plasma/Serum Alcohol < 0.01 % (0-0.07) 07/02/21 10:45 Coronavirus (PCR) Negative (Negative) 07/02/21 14:05 Taylor/IV: Voiding Method Indwelling Catheter Active Medications - Current Medications Current Medications: Generic Name Dose Route Start Last Admin Trade Name Freq PRN Reason Stop Dose Admin Acetaminophen 650 mg 07/02/21 14:30 Acetaminophen 325 Mg Tab PO Q4H PRN Pain MILD(1-3)/Fever >100.5/URIAS Albuterol 2.5 mg 07/02/21 17:00 Albuterol 2.5 Mg/3 Ml Nebu IH Q3HRT PRN Wheezing Arformoterol Tartrate 15 mcg 07/02/21 20:00 07/06/21 07:39 Arformoterol 15 Mcg/2 Ml Nebu IH 15 mcg Q12HRT MARTIN Administration Budesonide 0.5 mg 07/02/21 20:00 07/06/21 07:39 Budesonide 0.5 Mg/2 Ml Nebu IH 0.5 mg Q12HRT MARTIN Administration Famotidine 20 mg 07/04/21 10:00 07/04/21 10:57 Famotidine 20 Mg Tab PO 20 mg QDAY MARTIN Administration Heparin Sodium (Porcine) 5,000 unit 07/02/21 15:00 07/05/21 21:20 Heparin 5,000 Unit/1 Ml Vial SUB-Q 5,000 unit Q12HR MARTIN Administration Hydrophilic Ointment 1 applic 07/02/21 16:00 Lip Therapy Vaseline TP Q2H PRN Dry Lips Sodium Chloride 1,000 mls @ 75 mls/hr 07/05/21 04:30 07/05/21 23:00 Nacl 0.9% 1000 Ml IV 75 mls/hr DIRECT MARTIN Administration Metoclopramide HCl 10 mg 07/02/21 14:30 Metoclopramide 10 Mg/2 Ml Inj IV Q6H PRN Nausea And Vomiting Multi-Ingred Cream/Lotion/Oil/Oint 1 applic 07/02/21 16:00 Mineral Oil/Petrolatum, White Ophth Oint 3.5 Gm OU Q4H PRN Dry Eye(s) Ondansetron HCl 4 mg 07/02/21 14:30 Ondansetron 4 Mg/2 Ml Inj IV Q8H PRN Nausea And Vomiting Prednisone 40 mg 07/04/21 10:00 07/05/21 09:49 Prednisone 20 Mg Tab PO 40 mg QDAY MARTIN Administration Senna/Docusate Sodium 1 tab 07/02/21 22:00 07/05/21 21:20 Sennosides/Docusate Sodium 8.6/50 Mg Tab FEEDTUBE 1 tab BID MARTIN Administration Sodium Chloride 10 ml 07/02/21 15:00 07/05/21 21:20 Sodium Chloride 0.9% 10 Ml Flush Syringe IV 10 ml BID MARTIN Administration Sodium Chloride 10 ml 07/02/21 14:30 Sodium Chloride 0.9% 10 Ml Flush Syringe IV PRN PRN LINE FLUSH Tramadol HCl 50 mg 07/04/21 14:26 Tramadol 50 Mg Tab PO Q6H PRN Pain, Moderate (4-6) Nutrition/Malnutrition Assess - Dietary Evaluation Nutrition/Malnutrition Findings: Nutrition Notes Start: 07/03/21 11:15 Freq: Status: Active Protocol: Document 07/05/21 12:05 BRENNA (Rec: 07/05/21 12:08 BRENNA [id number]) Nutrition Notes Need for Assessment generated from: MD Order Initial or Follow up Brief Note Current Diet Consistent CHO GI soft with chopped meats Height 5 ft 8 in Weight 72.575 kg [place] Body Weight (kg) 70.00 BMI 24.3 Weight Status Appropriate Subjective/Other Information RD consulted for malnutrition; pt currently being followed by RD. He is tolerating PO diet; transferred to telemetry floor. Is patient on ventilator? No Is Patient Ambulatory and/or Out of Bed No REE-([facility]-confined to bed) 7544.296 Calculation Used for Recommendations [facility] Additional Notes Pro needs 1-1.2g/k-87g/ day Fluid needs 1ml/kcal Nutrition Intervention Follow-Up By: 07/07/21 Additional Comments F/U: intakes, need for ONS
--- NOTE | 2021-07-06 10:38 | Progress Note ---
Assessment and Plan Patient is a 81-year-old with unknown past medical history, who has been seen by us previously at the hospital, but does not follow with us outpatient presented to [facility] via EMS for altered mental status Altered Mental Status Acute respiratory failure Asymptomatic sinus bradycardia -heart rate hovering in the 40s and 50s. No evidence of AV block. ? History of psychiatric illness (per [facility] records) Echocardiogram (2017- ef 55-60%). Repeat echo pending Stress test-Lexiscan MPI 09/01/2017: Negative for acute ischemia Echo 07/02/2021-EF 55 to 60% mild diastolic dysfunction is present impaired relaxation pattern. Right ventricular systolic function is normal. Plan: Patient remains normotensive and asymptomatic. EKG 06/22/21-sinus bradycardia rate 56, prolonged OK interval, no acute ischemic changes. Troponin negative x1. BNP negative. Electrolytes acceptable. Avoid AV malika blocking agents Will plan for Lexiscan MPI stress test on Wednesday Subjective Principal diagnosis: Cardiac arrest with ROSC; AHRF; AMS; DM II; CAD; H/O Prostate cancer Interval history: No complaints. No lightheadedness or dizziness. Objective Vital Signs Temp Pulse Pulse Pulse Resp Resp BP 07/06/21 08:53 07/06/21 08:45 97.3 F L 44 L 17 159/88 07/05/21 21:34 69 07/05/21 21:33 69 07/05/21 20:00 62 18 07/05/21 19:25 98.5 F 64 18 156/76 07/05/21 16:35 97.7 F 55 L 17 121/71 07/05/21 15:00 55 L 07/05/21 11:20 98.3 F 52 L 15 140/78 Pulse Ox 07/06/21 08:53 100 07/06/21 08:45 98 07/05/21 21:34 98 07/05/21 21:33 07/05/21 20:00 07/05/21 19:25 98 07/05/21 16:35 97 07/05/21 15:00 07/05/21 11:20 100 - Physical Examination General: No Apparent Distress HEENT: Positive: Normocephaly, Mucus Membranes Dry Neck: Positive: trachea midline Neuro: Positive: Grossly Intact Abdomen: Positive: Active Bowel Sounds Skin: Negative: Rash Extremities: Present: upper extr. pulses, edema - Imaging and Cardiology EKG: image reviewed (SB) Echo: report reviewed - EKG Sinus rhythms and dysrhythmias: sinus bradycardia (no acute ischemic changes) - Allied health notes Allied health notes reviewed: nursing
[2021-07-06] MEDS: predniSONE 20 MG TAB PO SCH (11:15)
[2021-07-06] MEDS: FAMOTIDINE 20 MG TAB PO SCH ×2 (11:15→11:18)
[2021-07-06] MEDS: SENNOSIDES/DOCUSATE SODIUM 8.6/50 MG TAB FEEDTUBE SCH ×2 (11:15→21:18)
[2021-07-06] MEDS: HEPARIN 5,000 UNIT/1 ML VIAL SUB-Q SCH ×2 (11:15→21:18)
[2021-07-06] MEDS: SODIUM CHLORIDE 0.9% 1000 ML 1,000 ML IV SCH (11:31)
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
[2021-07-07] MEDS: SODIUM CHLORIDE 0.9% 1000 ML 1,000 ML IV SCH (01:33)
[2021-07-07] MEDS ORDERED: REGADENOSON 0.4 MG/5 ML INJ IV ONE (08:31)
[2021-07-07 09:04] LABS: BUN/Creatinine Ratio 26; Blood Urea Nitrogen 21 mg/dL (9-20); Calcium 9.5 mg/dL (8.4-10.2); Hemolysis Index 1
[2021-07-07] MEDS: ARFORMOTEROL 15 MCG/2 ML NEBU IH SCH ×2 (09:40→20:46)
[2021-07-07] MEDS: BUDESONIDE 0.5 MG/2 ML NEBU IH SCH ×2 (09:40→20:46)
--- NOTE | 2021-07-07 11:25 | Progress Note ---
Assessment and Plan Assessment and plan: 07/03: Patient is AAO, following commands, on the vent. Off sedation and tolerating PST. This am ABG and CXR noted. Plan for possible extubation today. Patient remains bradycardic this am, possible HB noted on the monitor, VSS. Cardiology is on consult, awaiting their recommendations. Will hold IV antiobiotic for now, patient remains afebrile with no leukocytosis, lactic and procal normal. 07/04: S/p extubation, stable on RA. Remains andres on the monitor, HR as low as 38 overnight, VSS. Awaiting Cardio final recommendation. Patient is stable for transfer to Telemetry once a bed is available. 07/05: Patient stable. Continues to have asymptomatic bradycardia. Discussed with cardiology, no plans to address bradycardia at this time. Plan for stress test Wednesday. Assessment and Plan #Acute Hypoxic Respiratory Failure #COPD with Exacerbation #Pleural Effusion - Found unresponsive at home, per family they started CPR - EMS found patient bradycardic and unresponsive - 07/03 s/p extubation, now stable on RA - Continue Steroids and Nebs - Continue SPO2 monitoring for SPO2 goal above 92% #Bradycardia, asymptomatic #HTN (hypertension) -initial EKG unremarkable, showing SB -continue BP medications, avoid AV malika blocking agents -will add atropine PRN to the chart if HR remains less than 35 -Cardiology consulted, plan for stress test today #Acute Encephalopathy-resolved - Etiology unclear, probably due to bradycardia - Urine drug screen negative, No focus of infection identified - CT head with no acute intracranial abnormality #T2DM (type 2 diabetes mellitus) - hemoglobin A1c- 5.0 - BG check and SSI Q6hrs - Avoid hypoglycemia #GERD (Gastroesophageal Reflux Disease) -Continue Pepcid #Malnutrition -Nutrition consulted for supplementation #Advanced care planning -Disease education conducted, care plan discussed, diagnoses discussed, prognosis discussed, and patient who acknowledges understanding with care plan -Time: +30 min #Discharge planning -Physical therapy evaluated patient and recommended subacute rehab versus home health with 24-hour care at home -Discussed with patient and Richmond Singh ([phone]), they would like to proceed with subacute rehab placement History Interval history: No acute events overnight. Patient waiting for stress test. Has no chest pain or shortness of breath. He is ready to eat. Patient was counseled to not have anything by mouth until after stress test was performed. He has no complaints. Hospitalist Physical - Physical exam Narrative exam: GENERAL: Well-developed well-nourished. In no acute distress. CHEST/LUNGS: CTAB on room air HEART/CARDIOVASCULAR: Bradycardic. No murmur, rubs or gallops appreciated. ABDOMEN: +BS. NT/ND. NEURO: No focal motor deficit. Follows all commands. MUSCULOSKELETAL: No joint effusion EXTREMITIES: No cyanosis, clubbing or edema. PSYCH: Cooperative. - Constitutional Vitals: Temp Pulse Resp BP Pulse Ox 97.5 F L 42 L 17 150/74 100 07/07/21 07:17 07/07/21 08:00 07/07/21 08:00 07/07/21 07:17 07/07/21 07:17 General appearance: Present: no acute distress, well-nourished HEART Score - HEART Score Troponin: Troponin T < 0.010 ng/mL (0.00-0.029) 07/02/21 10:45 Results - Labs CBC & Chem 7: 07/04/21 04:21 07/07/21 08:08 Labs: Laboratory Last Values WBC 8.6 K/mm3 (4.5-11.0) 07/04/21 04:21 RBC 3.91 M/mm3 (3.65-5.03) 07/04/21 04:21 Hgb 11.6 gm/dl (11.8-15.2) L 07/04/21 04:21 Hct 35.6 % (35.5-45.6) 07/04/21 04:21 MCV 91 fl (84-94) 07/04/21 04:21 MCH 30 pg (28-32) 07/04/21 04:21 MCHC 33 % (32-34) 07/04/21 04:21 RDW 15.1 % (13.2-15.2) 07/04/21 04:21 Plt Count 142 K/mm3 (140-440) 07/04/21 04:21 Lymph % (Auto) 11.1 % (13.4-35.0) L 07/03/21 03:41 [place] % (Auto) 4.6 % (0.0-7.3) 07/03/21 03:41 Eos % (Auto) 0.0 % (0.0-4.3) 07/03/21 03:41 Baso % (Auto) 0.2 % (0.0-1.8) 07/03/21 03:41 Lymph # (Auto) 0.9 K/mm3 (1.2-5.4) L 07/03/21 03:41 [place] # (Auto) 0.4 K/mm3 (0.0-0.8) 07/03/21 03:41 Eos # (Auto) 0.0 K/mm3 (0.0-0.4) 07/03/21 03:41 Baso # (Auto) 0.0 K/mm3 (0.0-0.1) 07/03/21 03:41 Seg Neutrophils % 84.1 % (40.0-70.0) H 07/03/21 03:41 Seg Neutrophils # 6.5 K/mm3 (1.8-7.7) 07/03/21 03:41 PT 14.2 Sec. (12.2-14.9) 07/02/21 10:45 INR 0.99 (0.87-1.13) 07/02/21 10:45 APTT 28.3 Sec. (24.2-36.6) 07/02/21 10:45 ABG pH 7.389 pH Units (7.350-7.450) 07/03/21 Unknown ABG pCO2 38.6 mm Hg 07/03/21 Unknown ABG pO2 184.8 mm Hg (80.0-90.0) H 07/03/21 Unknown ABG HCO3 22.8 mmol/L (20.0-26.0) 07/03/21 Unknown ABG O2 Saturation 99.2 % (95.0-99.0) H 07/03/21 Unknown ABG O2 Content 17.5 (0.0-44) 07/03/21 Unknown ABG Base Excess -1.9 mmol/L (-2.0-3.0) 07/03/21 Unknown ABG Hemoglobin 12.5 gm/dl (14.0-18.0) L 07/03/21 Unknown ABG Carboxyhemoglobin 1.2 % (0.0-5.0) 07/03/21 Unknown ABG Methemoglobin 0.6 % (0.0-1.5) 07/03/21 Unknown Oxyhemoglobin 97.4 % (95.0-99.0) 07/03/21 Unknown FiO2 35 % 07/03/21 Unknown Sodium 147 mmol/L (137-145) H 07/07/21 08:08 Potassium 4.5 mmol/L (3.6-5.0) 07/07/21 08:08 Chloride 109.2 mmol/L (98-107) H 07/07/21 08:08 Carbon Dioxide 29 mmol/L (22-30) 07/07/21 08:08 Anion Gap 13 mmol/L 07/07/21 08:08 BUN 21 mg/dL (9-20) H 07/07/21 08:08 Creatinine 0.8 mg/dL (0.8-1.3) 07/07/21 08:08 Estimated GFR > 60 ml/min 07/07/21 08:08 BUN/Creatinine Ratio 26 % 07/07/21 08:08 Glucose 86 mg/dL (75-100) 07/07/21 08:08 POC Glucose 76 mg/dL (70-105) 07/07/21 07:16 Hemoglobin A1c 5.0 % (4-6) 07/04/21 04:21 Lactic Acid 1.60 mmol/L (0.7-2.0) 07/02/21 23:15 Calcium 9.5 mg/dL (8.4-10.2) 07/07/21 08:08 Phosphorus 3.60 mg/dL (2.5-4.5) 07/04/21 04:21 Magnesium 2.10 mg/dL (1.7-2.3) 07/04/21 04:21 Total Bilirubin 0.90 mg/dL (0.1-1.2) 07/03/21 03:41 AST 23 units/L (5-40) 07/03/21 03:41 ALT 9 units/L (7-56) 07/03/21 03:41 Alkaline Phosphatase 61 units/L (35-129) 07/03/21 03:41 Ammonia 17.0 umol/L (25-60) L 07/02/21 10:45 Total Creatine Kinase 85 units/L (55-170) 07/02/21 10:45 CK-MB (CK-2) 2.2 ng/mL (0.0-4.0) 07/02/21 10:45 CK-MB (CK-2) Rel Index 2.5 (0-4) 07/02/21 10:45 Troponin T < 0.010 ng/mL (0.00-0.029) 07/02/21 10:45 NT-Pro-B Natriuret Pep 449.0 pg/mL (0-900) 07/02/21 10:45 Total Protein 5.8 g/dL (6.3-8.2) L 07/03/21 03:41 Albumin 3.7 g/dL (3.9-5) L 07/03/21 03:41 Albumin/Globulin Ratio 1.8 % 07/03/21 03:41 Procalcitonin < 0.05 ng/mL (<0.15) 07/02/21 10:45 TSH 3.350 mlU/mL (0.270-4.200) 07/02/21 10:45 Free T4 1.34 ng/dL (0.76-1.46) 07/02/21 10:45 Urine Color Yellow (Yellow) 07/02/21 Unknown Urine Turbidity Clear (Clear) 07/02/21 Unknown Urine pH 6.0 (5.0-7.0) 07/02/21 Unknown Ur Specific [place] 1.009 (1.003-1.030) 07/02/21 Unknown Urine Protein <15 mg/dl mg/dL (Negative) 07/02/21 Unknown Urine Glucose (UA) Neg mg/dL (Negative) 07/02/21 Unknown Urine Ketones Neg mg/dL (Negative) 07/02/21 Unknown Urine Blood Neg (Negative) 07/02/21 Unknown Urine Nitrite Neg (Negative) 07/02/21 Unknown Urine Bilirubin Neg (Negative) 07/02/21 Unknown Urine Urobilinogen < 2.0 mg/dL (<2.0) 07/02/21 Unknown Ur Leukocyte Esterase Neg (Negative) 07/02/21 Unknown Urine WBC (Auto) < 1.0 /HPF (0.0-6.0) 07/02/21 Unknown Urine RBC (Auto) < 1.0 /HPF (0.0-6.0) 07/02/21 Unknown Urine Opiates Screen Negative 07/02/21 Unknown Urine Methadone Screen Negative 07/02/21 Unknown Ur Barbiturates Screen Negative 07/02/21 Unknown Ur Phencyclidine Scrn Negative 07/02/21 Unknown Ur Amphetamines Screen Negative 07/02/21 Unknown U Benzodiazepines Scrn Negative 07/02/21 Unknown Urine Cocaine Screen Negative 07/02/21 Unknown U Marijuana (THC) Screen Negative 07/02/21 Unknown Drugs of Abuse Note Disclamer 07/02/21 Unknown Plasma/Serum Alcohol < 0.01 % (0-0.07) 07/02/21 10:45 Coronavirus (PCR) Negative (Negative) 07/02/21 14:05 Taylor/IV: Voiding Method Condom Catheter Active Medications - Current Medications Current Medications: Generic Name Dose Route Start Last Admin Trade Name Freq PRN Reason Stop Dose Admin Acetaminophen 650 mg 07/02/21 14:30 Acetaminophen 325 Mg Tab PO Q4H PRN Pain MILD(1-3)/Fever >100.5/URIAS Albuterol 2.5 mg 07/02/21 17:00 Albuterol 2.5 Mg/3 Ml Nebu IH Q3HRT PRN Wheezing Arformoterol Tartrate 15 mcg 07/02/21 20:00 07/07/21 09:40 Arformoterol 15 Mcg/2 Ml Nebu IH 15 mcg Q12HRT MARTIN Administration Budesonide 0.5 mg 07/02/21 20:00 07/07/21 09:40 Budesonide 0.5 Mg/2 Ml Nebu IH 0.5 mg Q12HRT MARTIN Administration Famotidine 20 mg 07/04/21 10:00 07/06/21 11:18 Famotidine 20 Mg Tab PO 20 mg QDAY MARTIN Administration Heparin Sodium (Porcine) 5,000 unit 07/02/21 15:00 07/06/21 21:18 Heparin 5,000 Unit/1 Ml Vial SUB-Q 5,000 unit Q12HR MARTIN Administration Hydrophilic Ointment 1 applic 07/02/21 16:00 Lip Therapy Vaseline TP Q2H PRN Dry Lips Sodium Chloride 1,000 mls @ 75 mls/hr 07/05/21 04:30 07/07/21 01:33 Nacl 0.9% 1000 Ml IV 75 mls/hr DIRECT MARTIN Administration Metoclopramide HCl 10 mg 07/02/21 14:30 Metoclopramide 10 Mg/2 Ml Inj IV Q6H PRN Nausea And Vomiting Multi-Ingred Cream/Lotion/Oil/Oint 1 applic 07/02/21 16:00 Mineral Oil/Petrolatum, White Ophth Oint 3.5 Gm OU Q4H PRN Dry Eye(s) Ondansetron HCl 4 mg 07/02/21 14:30 Ondansetron 4 Mg/2 Ml Inj IV Q8H PRN Nausea And Vomiting Prednisone 40 mg 07/04/21 10:00 07/06/21 11:15 Prednisone 20 Mg Tab PO 40 mg QDAY MARTIN Administration Senna/Docusate Sodium 1 tab 07/02/21 22:00 07/06/21 21:18 Sennosides/Docusate Sodium 8.6/50 Mg Tab FEEDTUBE 1 tab BID MARTIN Administration Sodium Chloride 10 ml 07/02/21 15:00 07/06/21 21:50 Sodium Chloride 0.9% 10 Ml Flush Syringe IV Not Given BID MARTIN Sodium Chloride 10 ml 07/02/21 14:30 Sodium Chloride 0.9% 10 Ml Flush Syringe IV PRN PRN LINE FLUSH Tramadol HCl 50 mg 07/04/21 14:26 Tramadol 50 Mg Tab PO Q6H PRN Pain, Moderate (4-6) Nutrition/Malnutrition Assess - Dietary Evaluation Nutrition/Malnutrition Findings: Nutrition Notes Start: 07/03/21 11:15 Freq: Status: Active Protocol: Document 07/05/21 12:05 BRENNA (Rec: 07/05/21 12:08 BRENNA [id number]) Nutrition Notes Need for Assessment generated from: MD Order Initial or Follow up Brief Note Current Diet Consistent CHO GI soft with chopped meats Height 5 ft 8 in Weight 72.575 kg [place] Body Weight (kg) 70.00 BMI 24.3 Weight Status Appropriate Subjective/Other Information RD consulted for malnutrition; pt currently being followed by RD. He is tolerating PO diet; transferred to telemetry floor. Is patient on ventilator? No Is Patient Ambulatory and/or Out of Bed No REE-([facility]-confined to bed) [phone] Calculation Used for Recommendations [facility] Additional Notes Pro needs 1-1.2g/k-87g/ day Fluid needs 1ml/kcal Nutrition Intervention Follow-Up By: 07/07/21 Additional Comments F/U: intakes, need for ONS
--- NOTE | 2021-07-07 12:10 | Progress Note ---
Assessment and Plan Cardiac arrest with ROSC Acute hypoxemic respiratory failure on MVS Small left pleural effusion Acute toxic metabolic encephalopathy DM II CAD HTN H/O Asthma H/O Gout H/O Prostate cancer - prn supplemental oxygen to keep O2 sats > 90% - prn bronchodilators (ODILIA) with pulm hygiene per RT - continue to avoid nephrotoxins, renally dose all medications - mobility protocols to prevent pressure ulcers - PT/OT as tolerated - Wound care per RN/WCT - continue accuchecks with glycemic control per SSI for target blood glucose < 180 mg/dL - Smoking cessation strongly counseled at the bedside - home oxygen evaluation at discharge - GI & VTE prophylaxis - Flu & pneumovax per protocol - prn analgesia per pain score - Pulmonary out patient follow up for PFTs and optimization of respiratory statu s - continue other care per attending / other consultants ... re-evaluate in am & prn Subjective Date of service: 07/07/21 Principal diagnosis: Cardiac arrest with ROSC; AHRF; AMS; DM II; CAD; H/O Prostate cancer Interval history: Patient is seen today for: Cardiac arrest with ROSC; AHRF; AMS; DM II; CAD; H/O Prostate cancer Seen and examined at bedside; 24hour events reviewed; nursing and respiratory care staff consulted; no adverse overnight events reported to me; resting peacefully in bed; Objective Vital Signs - 12hr 07/07/21 07/07/21 07/07/21 03:39 07:17 07:55 Temperature 97.5 F L 97.5 F L Pulse Rate 39 L 42 L 35 L Pulse Rate [ Anterior Bilateral] Respiratory 18 16 Rate Respiratory Rate [Anterior Bilateral] Blood Pressure 140/97 150/74 O2 Sat by Pulse 98 100 Oximetry 07/07/21 08:00 Temperature Pulse Rate Pulse Rate [ 42 L Anterior Bilateral] Respiratory Rate Respiratory 17 Rate [Anterior Bilateral] Blood Pressure O2 Sat by Pulse Oximetry Constitutional: no acute distress, alert Eyes: non-icteric ENT: oropharynx moist Neck: supple, no lymphadenopathy, no JVD Effort: normal Ascultation: Bilateral: clear, diminished breath sounds, other (Prolonged expiratory phase.) Percussion: Bilateral: not dull Cardiovascular: regular rate and rhythm Gastrointestinal: normoactive bowel sounds, soft, non-tender, non-distended Integumentary: normal Extremities: no cyanosis, pulses normal, no ischemia or petechiae Neurologic: non-focal exam (grossly), pupils equal and round, CN II-XII normal, motor strength normal and Psychiatric: mood appropriate, affect normal CBC and BMP: 07/04/21 04:21 07/07/21 08:08 ABG, PT/INR, D-dimer: ABG ABG pH 7.389 pH Units (7.350-7.450) 07/03/21 Unknown ABG pCO2 38.6 mm Hg 07/03/21 Unknown ABG pO2 184.8 mm Hg (80.0-90.0) H 07/03/21 Unknown ABG O2 Saturation 99.2 % (95.0-99.0) H 07/03/21 Unknown PT/INR, D-dimer PT 14.2 Sec. (12.2-14.9) 07/02/21 10:45 INR 0.99 (0.87-1.13) 07/02/21 10:45 Abnormal lab findings: Abnormal Labs 07/02/21 07/02/21 07/02/21 07:42 10:45 10:45 Hgb Lymph % (Auto) [place] % (Auto) 8.5 H Lymph # (Auto) Seg Neutrophils % ABG pO2 575.4 H ABG O2 Saturation 99.6 H ABG Hemoglobin 12.7 L Sodium Potassium Chloride 107.7 H BUN Glucose POC Glucose Ammonia Total Protein 6.1 L Albumin 3.8 L 07/02/21 07/03/21 07/03/21 10:45 03:41 03:41 Hgb Lymph % (Auto) 11.1 L [place] % (Auto) Lymph # (Auto) 0.9 L Seg Neutrophils % 84.1 H ABG pO2 ABG O2 Saturation ABG Hemoglobin Sodium 146 H Potassium 3.5 L Chloride 107.3 H BUN Glucose POC Glucose Ammonia 17.0 L Total Protein 5.8 L Albumin 3.7 L 07/03/21 07/03/21 07/03/21 05:05 16:37 Unknown Hgb Lymph % (Auto) [place] % (Auto) Lymph # (Auto) Seg Neutrophils % ABG pO2 176.7 H 184.8 H ABG O2 Saturation 99.1 H 99.2 H ABG Hemoglobin 13.1 L 12.5 L Sodium Potassium Chloride BUN Glucose POC Glucose 115 H Ammonia Total Protein Albumin 0407/04/21 07/04/21 04:21 04:21 21:08 Hgb 11.6 L Lymph % (Auto) [place] % (Auto) Lymph # (Auto) Seg Neutrophils % ABG pO2 ABG O2 Saturation ABG Hemoglobin Sodium Potassium Chloride 110.2 H BUN 26 H Glucose 126 H POC Glucose 120 H Ammonia Total Protein Albumin 07/05/21 07/05/21 07/05/21 11:20 16:39 20:36 Hgb Lymph % (Auto) [place] % (Auto) Lymph # (Auto) Seg Neutrophils % ABG pO2 ABG O2 Saturation ABG Hemoglobin Sodium Potassium Chloride BUN Glucose POC Glucose 126 H 137 H 143 H Ammonia Total Protein Albumin 07/06/21 07/06/21 07/06/21 08:44 16:38 21:04 Hgb Lymph % (Auto) [place] % (Auto) Lymph # (Auto) Seg Neutrophils % ABG pO2 ABG O2 Saturation ABG Hemoglobin Sodium Potassium Chloride BUN Glucose POC Glucose 58 L 161 H 137 H Ammonia Total Protein Albumin 07/07/21 08:08 Hgb Lymph % (Auto) [place] % (Auto) Lymph # (Auto) Seg Neutrophils % ABG pO2 ABG O2 Saturation ABG Hemoglobin Sodium 147 H Potassium Chloride 109.2 H BUN 21 H Glucose POC Glucose Ammonia Total Protein Albumin Allied health notes reviewed: nursing
--- NOTE | 2021-07-07 13:20 | Electrocardiograph Report ---
[facility] Test Date: 2021-07-05 Test Time: 02:04:14 Pat Name: NIMCO LESTER Department: Room: A480 1 Gender: M Etl Analyst Developer: YISSEL : [id number] Requested By: KEVIN CLINTON Order Number: [id number] Reading MD: Keiko Blank Measurements Intervals [place] Rate: 41 P: -62 PA: 229 QRS: -8 QRSD: 90 T: 177 QT: 522 QTc: 422 Interpretive Statements Sinus bradycardia with irregular rate Low voltage QRS T wave inversions suggest acute anterior ischemia Compared to ECG 07/02/2021 07:02:47 Anterior T wave inversions are more prominent on current ECG Electronically Signed On 07-07-2021 13:20:13 EDT by Keiko Blank
--- NOTE | 2021-07-07 13:43 | Progress Note ---
Assessment and Plan This is a 81-year-old with unknown past medical history, who has been seen by us previously at the hospital, but does not follow with us outpatient presented to Replaced by [facility] via EMS for altered mental status. Assessment: Altered Mental Status Acute respiratory failure Bradycardia- SB vs ? CHB ? History of psychiatric illness (per [facility] records) Cardiographics: Echocardiogram --07/02/2021-EF 55 to 60% mild diastolic dysfunction is present impaired relaxation pattern. Right ventricular systolic function is normal. Stress test- Repeat MPI pending ---Lexiscan MPI 09/01/2017: Negative for acute ischemia Plan: MPI results pending. Patient remains normotensive and asymptomatic. EP consultation placed. EKG with rhythm strip ordered. EKG 06/22/21-sinus bradycardia rate 56, prolonged WI interval, no acute ischemic changes. Troponin negative x1. BNP negative. Electrolytes acceptable. Avoid AV malika blocking agents Patient seen and examined with Dr. Elier Sierra, who agrees with assessment and plan of care of this patient. - Patient Problems (1) Altered mental status Current Visit: Yes Status: Acute Subjective Date of service: 07/07/21 Principal diagnosis: Cardiac arrest with ROSC; AHRF; AMS; DM II; CAD; H/O Prostate cancer Interval history: Patient seen and examined in hospital room. He is awake and talking. He has no cardiac complaints. Awaiting MPI stress test today Tele: Sinus bradycardia, 30s to 40s Intake & Output 07/06/21 07/07/21 07/07/21 23:59 07:59 15:59 Intake Total 480 1400 Output Total 1020 Balance -540 1400 Weight 72.575 kg Objective Vital Signs Temp Pulse Pulse Pulse Resp Resp Resp 07/07/21 12:31 07/07/21 12:30 07/07/21 12:28 07/07/21 12:27 07/07/21 12:26 07/07/21 08:00 42 L 17 07/07/21 07:55 35 L 07/07/21 07:17 97.5 F L 42 L 16 07/07/21 03:39 97.5 F L 39 L 18 07/07/21 00:00 97.4 F L 66 16 07/06/21 23:00 56 L 07/06/21 20:56 98.0 F 45 L 18 07/06/21 20:35 49 L 18 07/06/21 15:22 98.0 F 58 L 18 BP BP Pulse Ox 07/07/21 12:31 128/71 07/07/21 12:30 137/61 07/07/21 12:28 127/64 07/07/21 12:27 148/67 07/07/21 12:26 154/67 07/07/21 08:00 07/07/21 07:55 07/07/21 07:17 150/74 100 07/07/21 03:39 140/97 98 07/07/21 00:00 121/78 07/06/21 23:00 07/06/21 20:56 126/60 96 07/06/21 20:35 07/06/21 15:22 124/69 99 - Physical Examination General: No Apparent Distress HEENT: Positive: Normocephaly, Mucus Membranes Dry Neck: Positive: trachea midline Cardiac: Positive: S1/S2, Bradycardia Lungs: Positive: clear to auscultation Neuro: Positive: Grossly Intact Abdomen: Positive: Active Bowel Sounds Skin: Negative: Rash Extremities: Present: upper extr. pulses, edema (LLE > RLE) - Labs and Meds Comprehensive Metabolic Panel 07/07/21 Range/Units 08:08 Sodium 147 H (137-145) mmol/L Potassium 4.5 (3.6-5.0) mmol/L Chloride 109.2 H (98-107) mmol/L Carbon Dioxide 29 (22-30) mmol/L BUN 21 H (9-20) mg/dL Creatinine 0.8 (0.8-1.3) mg/dL Glucose 86 (75-100) mg/dL Calcium 9.5 (8.4-10.2) mg/dL - Imaging and Cardiology EKG: image reviewed (SB) Nuclear stress test: pending Echo: report reviewed - Telemetry EKG Rhythm: Sinus Bradycardia - EKG Sinus rhythms and dysrhythmias: sinus bradycardia (no acute ischemic changes) - Allied health notes Allied health notes reviewed: nursing
[2021-07-07] MEDS: HEPARIN 5,000 UNIT/1 ML VIAL SUB-Q SCH ×2 (14:43→22:01)
[2021-07-07] MEDS: predniSONE 20 MG TAB PO SCH (14:43)
[2021-07-07] MEDS: FAMOTIDINE 20 MG TAB PO SCH (14:43)
[2021-07-07] MEDS: SENNOSIDES/DOCUSATE SODIUM 8.6/50 MG TAB FEEDTUBE SCH ×2 (14:44→22:02)
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
[2021-07-08] MEDS: SODIUM CHLORIDE 0.9% 1000 ML 1,000 ML IV SCH (02:13)
[2021-07-08] MEDS: predniSONE 20 MG TAB PO SCH (09:53)
[2021-07-08] MEDS: HEPARIN 5,000 UNIT/1 ML VIAL SUB-Q SCH (09:53)
[2021-07-08] MEDS: FAMOTIDINE 20 MG TAB PO SCH (09:54)
[2021-07-08] MEDS: SENNOSIDES/DOCUSATE SODIUM 8.6/50 MG TAB FEEDTUBE SCH (10:00)
[2021-07-08] MEDS: ARFORMOTEROL 15 MCG/2 ML NEBU IH SCH (10:02)
[2021-07-08] MEDS: BUDESONIDE 0.5 MG/2 ML NEBU IH SCH (10:02)
--- NOTE | 2021-07-08 10:25 | Electrocardiograph Report ---
[facility] Test Date: 2021-07-07 Test Time: 15:43:35 Pat Name: NIMCO LESTER Department: Room: A480 1 Gender: M Supervisor Inventory Merchandising: EVON : 1940 Requested By: EDILIA CORONA Order Number: [id number] Reading MD: Roosevelt Sierra Measurements Intervals [place] Rate: 54 P: -25 OR: 214 QRS: -24 QRSD: 105 T: 208 QT: 469 QTc: 401 Interpretive Statements Sinus bradycardia Multiple premature complexes, vent & supraven Borderline prolonged OR interval Inferior infarct, old Abnrm T, consider ischemia, anterolateral lds Compared to ECG 07/05/2021 02:04:14 Myocardial infarct finding now present Possible ischemia still present Electronically Signed On 07-08-2021 10:25:18 EDT by Roosevelt Sierra
[2021-07-08 11:52] VITALS: BP 145/66
--- NOTE | 2021-07-08 12:21 | Progress Note ---
Assessment and Plan This is a 81-year-old with unknown past medical history, who has been seen by us previously at the hospital, but does not follow with us outpatient presented to [facility] via EMS for altered mental status. Assessment: Altered Mental Status Acute respiratory failure - resolved Bradycardia- EP consulted. History of psychiatric illness (per [facility] records) Cardiographics: Echocardiogram --07/02/2021-EF 55 to 60% mild diastolic dysfunction is present impaired relaxation pattern. Right ventricular systolic function is normal. Stress test- Repeat MPI pending ---Lexiscan MPI 09/01/2017: Negative for acute ischemia Plan: MPI results still pending. Patient c/o LLE pain; Of note, BLE doppler negative for DVT. Patient remains normotensive and asymptomatic. Remains alert and appears to be able to make medical decisions for himself. EP consultation placed; IVORY DOWNS saw patient this am. Pt appears to be in 2 degree type 1 HB with intermittent junctional escape beats. PPM discussed with patient, but he states that he does not want one, as he financially can not afford a PPM and has "8 grandchildren to take care of". Troponin negative x1. BNP negative. Electrolytes acceptable. Avoid AV malika blocking agents Patient seen and examined with Dr. Elier Sierra, who agrees with assessment and plan of care of this patient.. - Patient Problems (1) Altered mental status Current Visit: Yes Status: Acute (2) Bradycardia Current Visit: Yes Status: Acute (3) HTN (hypertension) Current Visit: Yes Status: Chronic Qualifiers: Hypertension type: primary hypertension Qualified Code(s): I10 - Essential (primary) hypertension Subjective Date of service: 07/08/21 Principal diagnosis: Cardiac arrest with ROSC; AHRF; AMS; DM II; CAD; H/O Prostate cancer Interval history: Patient seen and examined in hospital room. He is awake and talking. He has no cardiac complaints. PPM discussed with patient by IVORY DOWNS and patient states he does not want one as " he cannot afford it " Tele: 2nd degree type 1, rates 30s to 40s Objective Vital Signs Temp Pulse Pulse Pulse Pulse Resp Resp 07/08/21 11:04 98.7 F 51 L 18 07/08/21 10:00 62 18 07/08/21 08:00 71 07/08/21 07:37 98.4 F 43 L 18 07/08/21 03:28 97.5 F L 47 L 18 07/08/21 02:00 07/07/21 23:55 99.5 F 61 18 07/07/21 20:54 98.1 F 60 18 07/07/21 20:46 55 L 51 L 16 07/07/21 15:28 97.3 F L 44 L 16 07/07/21 14:55 42 L 18 07/07/21 12:31 07/07/21 12:30 07/07/21 12:28 07/07/21 12:27 07/07/21 12:26 Resp BP Pulse Ox 07/08/21 11:04 145/66 100 07/08/21 10:00 99 07/08/21 08:00 18 07/08/21 07:37 162/64 94 07/08/21 03:28 150/74 99 07/08/21 02:00 99 07/07/21 23:55 152/68 99 07/07/21 20:54 157/81 99 07/07/21 20:46 16 07/07/21 15:28 160/89 97 07/07/21 14:55 100 07/07/21 12:31 128/71 07/07/21 12:30 137/61 07/07/21 12:28 127/64 07/07/21 12:27 148/67 07/07/21 12:26 154/67 - Physical Examination General: No Apparent Distress HEENT: Positive: Normocephaly, Mucus Membranes Dry Neck: Positive: trachea midline Cardiac: Positive: S1/S2, Bradycardia. Negative: Audible Murmur Lungs: Positive: clear to auscultation Neuro: Positive: Grossly Intact (Alert and talking.) Abdomen: Positive: Active Bowel Sounds Skin: Negative: Rash Extremities: Present: upper extr. pulses, edema (LLE > RLE. BLE doppler negative for DVT. ) - Imaging and Cardiology EKG: image reviewed (SB) Echo: report reviewed - Telemetry EKG Rhythm: 2nd degree HB(Wenckebach) - EKG Sinus rhythms and dysrhythmias: sinus bradycardia (no acute ischemic changes) - Allied health notes Allied health notes reviewed: nursing
--- NOTE | 2021-07-08 12:28 | Progress Note ---
Assessment and Plan Cardiac arrest with ROSC Acute hypoxemic respiratory failure on MVS Small left pleural effusion Acute toxic metabolic encephalopathy DM II CAD HTN H/O Asthma H/O Gout H/O Prostate cancer - prn supplemental oxygen to keep O2 sats > 90% - prn bronchodilators (ODILIA) with pulm hygiene per RT - continue to avoid nephrotoxins, renally dose all medications - mobility protocols to prevent pressure ulcers - PT/OT as tolerated - Wound care per RN/WCT - continue accuchecks with glycemic control per SSI for target blood glucose < 180 mg/dL - Smoking cessation strongly counseled at the bedside - home oxygen evaluation at discharge - GI & VTE prophylaxis - Flu & pneumovax per protocol - prn analgesia per pain score - Pulmonary out patient follow up for PFTs and optimization of respiratory statu s - continue other care per attending / other consultants ... re-evaluate in am & prn Subjective Date of service: 07/08/21 Principal diagnosis: Cardiac arrest with ROSC; AHRF; AMS; DM II; CAD; H/O Prostate cancer Interval history: Patient is seen today for: Cardiac arrest with ROSC; AHRF; AMS; DM II; CAD; H/O Prostate cancer Seen and examined at bedside; 24hour events reviewed; nursing and respiratory care staff consulted; no adverse overnight events reported to me; resting peacefully in bed; d Objective Vital Signs - 12hr 07/08/21 07/08/21 07/08/21 02:00 03:28 07:37 Temperature 97.5 F L 98.4 F Pulse Rate 47 L 43 L Pulse Rate [ Anterior Bilateral] Pulse Rate [ From Monitor] Respiratory 18 18 Rate Respiratory Rate [Anterior Bilateral] Blood Pressure 150/74 162/64 O2 Sat by Pulse 99 99 94 Oximetry 07/08/21 07/08/21 07/08/21 08:00 10:00 11:04 Temperature 98.7 F Pulse Rate 51 L Pulse Rate [ 71 Anterior Bilateral] Pulse Rate [ 62 From Monitor] Respiratory 18 18 Rate Respiratory 18 Rate [Anterior Bilateral] Blood Pressure 145/66 O2 Sat by Pulse 99 100 Oximetry Constitutional: no acute distress, alert Eyes: non-icteric ENT: oropharynx moist Neck: supple, no lymphadenopathy, no JVD Effort: normal Ascultation: Bilateral: clear, diminished breath sounds, other (Prolonged expiratory phase.) Percussion: Bilateral: not dull Cardiovascular: regular rate and rhythm Gastrointestinal: normoactive bowel sounds, soft, non-tender, non-distended Integumentary: normal Extremities: no cyanosis, pulses normal, no ischemia or petechiae Neurologic: non-focal exam (grossly), pupils equal and round, CN II-XII normal, motor strength normal and Psychiatric: mood appropriate, affect normal CBC and BMP: 07/04/21 04:21 07/07/21 08:08 ABG, PT/INR, D-dimer: ABG ABG pH 7.389 pH Units (7.350-7.450) 07/03/21 Unknown ABG pCO2 38.6 mm Hg 07/03/21 Unknown ABG pO2 184.8 mm Hg (80.0-90.0) H 07/03/21 Unknown ABG O2 Saturation 99.2 % (95.0-99.0) H 07/03/21 Unknown PT/INR, D-dimer PT 14.2 Sec. (12.2-14.9) 07/02/21 10:45 INR 0.99 (0.87-1.13) 07/02/21 10:45 Abnormal lab findings: Abnormal Labs 07/02/21 07/02/21 07/02/21 07:42 10:45 10:45 Hgb Lymph % (Auto) [place] % (Auto) 8.5 H Lymph # (Auto) Seg Neutrophils % ABG pO2 575.4 H ABG O2 Saturation 99.6 H ABG Hemoglobin 12.7 L Sodium Potassium Chloride 107.7 H BUN Glucose POC Glucose Ammonia Total Protein 6.1 L Albumin 3.8 L 07/02/21 07/03/21 07/03/21 10:45 03:41 03:41 Hgb Lymph % (Auto) 11.1 L [place] % (Auto) Lymph # (Auto) 0.9 L Seg Neutrophils % 84.1 H ABG pO2 ABG O2 Saturation ABG Hemoglobin Sodium 146 H Potassium 3.5 L Chloride 107.3 H BUN Glucose POC Glucose Ammonia 17.0 L Total Protein 5.8 L Albumin 3.7 L 07/03/21 07/03/21 07/03/21 05:05 16:37 Unknown Hgb Lymph % (Auto) [place] % (Auto) Lymph # (Auto) Seg Neutrophils % ABG pO2 176.7 H 184.8 H ABG O2 Saturation 99.1 H 99.2 H ABG Hemoglobin 13.1 L 12.5 L Sodium Potassium Chloride BUN Glucose POC Glucose 115 H Ammonia Total Protein Albumin 07/04/21 07/04/21 07/04/21 04:21 04:21 21:08 Hgb 11.6 L Lymph % (Auto) [place] % (Auto) Lymph # (Auto) Seg Neutrophils % ABG pO2 ABG O2 Saturation ABG Hemoglobin Sodium Potassium Chloride 110.2 H BUN 26 H Glucose 126 H POC Glucose 120 H Ammonia Total Protein Albumin 07/05/21 07/05/21 07/05/21 11:20 16:39 20:36 Hgb Lymph % (Auto) [place] % (Auto) Lymph # (Auto) Seg Neutrophils % ABG pO2 ABG O2 Saturation ABG Hemoglobin Sodium Potassium Chloride BUN Glucose POC Glucose 126 H 137 H 143 H Ammonia Total Protein Albumin 07/06/21 07/06/21 07/06/21 08:44 16:38 21:04 Hgb Lymph % (Auto) [place] % (Auto) Lymph # (Auto) Seg Neutrophils % ABG pO2 ABG O2 Saturation ABG Hemoglobin Sodium Potassium Chloride BUN Glucose POC Glucose 58 L 161 H 137 H Ammonia Total Protein Albumin 07/07/21 07/07/21 07/07/21 08:08 15:49 21:22 Hgb Lymph % (Auto) [place] % (Auto) Lymph # (Auto) Seg Neutrophils % ABG pO2 ABG O2 Saturation ABG Hemoglobin Sodium 147 H Potassium Chloride 109.2 H BUN 21 H Glucose POC Glucose 59 L 157 H Ammonia Total Protein Albumin Allied health notes reviewed: nursing
--- NOTE | 2021-07-08 14:23 | Discharge Summary ---
Providers - Providers Date of Admission: 07/02/21 14:13 Date of discharge: 07/08/21 Attending physician: JOHN ADRIAN MD 07/02/21 11:38 Consult to Physician [CONS] Urgent Comment: Consulting Provider: VASQUEZ LOVELL Physician Instructions: Reason For Exam: ICU patient/intubated 07/02/21 15:52 Consult to Dietitian/Nutrition [CONS] Routine Physician Instructions: Reason For Exam: Reason for Consult: Evaluate nutritional intake Consult to Physician [CONS] Routine Comment: Consulting Provider: RAMIREZ ALFONSO Physician Instructions: Reason For Exam: CAD; Cardiac Arrest 07/03/21 14:39 Physical Therapy Evaluation and Treat [CONS] Routine Comment: Reason For Exam: Strenghtening and conditioning 07/04/21 22:29 Consult to Dietitian/Nutrition [CONS] Routine Physician Instructions: Reason For Exam: Reason for Consult: Malnutrition 07/07/21 08:23 Consult to Case Management [CONS] Routine Services Needed at Discharge: Other Notified:: COTTAGE [employer] Additional Physician Instructions: subacute rehab Primary care physician: HARRIS CARUSO Hospitalization Reason for admission: Acute hypoxic respiratory failure, acute metabolic encephalopathy Condition: Fair Pertinent studies: Reviewed. Procedures: Mechanical intubation; myocardial perfusion scan Hospital course: Patient is a 81-year-old male past medical history of hypertension, CAD complicated by acute NC, zvw-dmdiugt-fwqvplftb type 2 diabetes mellitus, GERD, arthritis, asthma, and gout who presented with acute metabolic encephalopathy after being found unresponsive by family at home. The patient was found to be bradycardic with decreased gag reflex in addition to being unresponsive to sternal rub. The decision was made to intubate the patient in the emergency room due to airway risk. Patient was eventually weaned off of sedation and extubated on 07/04/2021. Patient was found to have acute on chronic COPD exacerbation. The patient's acute metabolic encephalopathy (etiology undetermined) resolved as well. Patient was continued on steroids and nebs, and he was successfully transitioned to room air. Cardiology was consulted for asymptomatic bradycardia. Patient was seen to be going in and out of second- degree AV block; however, the patient declined pacemaker placement. Myocardial perfusion scan was performed on 07/07/2021. The patient understands the recommendations made by cardiology, and he is able to make medical decisions on his own. The patient is medically clear for discharge. Disposition: 03 [facility] Final Discharge Diagnosis (Prints w/discharge instructions): Acute hypoxic respiratory failure, acute on chronic COPD exacerbation, pleural effusion, asymptomatic bradycardia, hypertension, acute metabolic encephalopathy, noninsulin-dependent type 2 diabetes mellitus, GERD, malnutrition Time spent for discharge: 45 min Core Measure Documentation - Palliative Care Palliative Care/ Comfort Measures: Not Applicable - Core Measures Any of the following diagnoses?: history only Exam - Constitutional Vitals: Temp Pulse Resp BP Pulse Ox 98.7 F 51 L 18 145/66 100 07/08/21 11:04 07/08/21 11:04 07/08/21 11:04 07/08/21 11:04 07/08/21 11:04 General appearance: Present: no acute distress, cachectic - EENT Eyes: Present: PERRL, EOM intact ENT: hearing intact, clear oral mucosa - Neck Neck: Present: supple, normal ROM - Respiratory Respiratory effort: normal Respiratory: bilateral: diminished - Cardiovascular Rhythm: regular Heart Sounds: Present: S1 & S2 - Extremities Extremities: no ischemia, pulses intact, pulses symmetrical, normal temperature, normal color Extremity abnormal: edema (Trace edema bilateral lower extremities to lower starr) Peripheral Pulses: within normal limits - Abdominal General gastrointestinal: Present: soft, non-tender, non-distended, normal bowel sounds Male genitourinary: Present: deferred - Rectal Rectal Exam: deferred - Integumentary Integumentary: Present: clear, warm, dry - Musculoskeletal Musculoskeletal: generalized weakness - Psychiatric Psychiatric: appropriate mood/affect, cooperative - Neurologic Neurologic: CNII-XII intact, moves all extremities - Allied Health Allied health notes reviewed: nursing Plan Activity: advance as tolerated Diet: low salt Additional Instructions: Patient is a 81-year-old male past medical history of hypertension, CAD complicated by acute NC, mgo-cdcqeum-nrmcuvgwg type 2 diabetes mellitus, GERD, arthritis, asthma, and gout who presented with acute metabolic encephalopathy after being found unresponsive by family at home. The patient was found to be bradycardic with decreased gag reflex in addition to being unresponsive to sternal rub. The decision was made to intubate the patient in the emergency room due to airway risk. Patient was eventually weaned off of sedation and extubated on 07/04/2021. Patient was found to have acute on chronic COPD exacerbation. The patient's acute metabolic encephalopathy (etiology undetermined) resolved as well. Patient was continued on steroids and nebs, and he was successfully transitioned to room air. Cardiology was consulted for asymptomatic bradycardia. Patient was seen to be going in and out of second- degree AV block; however, the patient declined pacemaker placement. Myocardial perfusion scan was performed on 07/07/2021. The patient understands the recommendations made by cardiology, and he is able to make medical decisions on his own. The patient is medically clear for discharge. Care Plan Goals: Patient is medically clear for discharge. Assessment: Patient is a 81-year-old male past medical history of hypertension, CAD complicated by acute NC, cdy-maoxufl-nilnueeow type 2 diabetes mellitus, GERD, arthritis, asthma, and gout who presented with acute metabolic encephalopathy after being found unresponsive by family at home. The patient was found to be bradycardic with decreased gag reflex in addition to being unresponsive to sternal rub. The decision was made to intubate the patient in the emergency room due to airway risk. Patient was eventually weaned off of sedation and extubated on 07/04/2021. Patient was found to have acute on chronic COPD exacerbation. The patient's acute metabolic encephalopathy (etiology undetermined) resolved as well. Patient was continued on steroids and nebs, and he was successfully transitioned to room air. Cardiology was consulted for a symptomatic bradycardia. Patient was seen to be going in and out of second- degree AV block; however, the patient declined pacemaker placement. Myocardial perfusion scan was performed on 07/07/2021. The patient understands the recommendations made by cardiology, and he is able to make medical decisions on his own. The patient is medically clear for discharge. Follow up with: HARRIS CARUSO MD [Primary Care Provider] - 3-5 Days
--- NOTE | 2021-07-09 11:58 | Event Note ---
Date: 07/08/21 IVORY DOWNS, Dr. Knox, saw patient in consultation this am (07/08/2021) . Pt appears to be in 2 degree type 1 HB with intermittent junctional escape beats. PPM discussed with patient, but he states that he does not want a pacemaker. Seen in conjunction with Dr. Knox who agrees with plan of care.
--- NOTE | 2021-07-09 16:28 | Treadmill Report ---
DATE OF SERVICE: 07/07/2021 NUCLEAR PERFUSION SCAN REFERRING PHYSICIAN: Hospitalist armando. PROTOCOL: The patient was assessed in postoperative state, given 10 mCi of technetium-99m at rest. The patient had rest imaging. The patient underwent Lexiscan stress test per standard protocol. At peak stress, the patient given 26 mCi of technetium-99m. Shortly thereafter, the patient had stress imaging. Technically difficult study due to GI artifact. Grossly normal homogeneous uptake of radioisotope without evidence of significant fixed or reversible perfusion defect suggestive of prior infarction or ischemia. Gated wall motion reveals normal LV function, calculated at 50%. No TID. CONCLUSIONS: 1. Technically difficult study, but grossly probably normal without evidence of a significant degree of ischemia or prior infarction. 2. Normal left ventricular function calculated at 50% without transient ischemic dilatation or stress-induced segmental wall motion abnormalities. TID: [id number] RECEIPT: [id number] ELVI/SANDRA/MARLINE
== END 2021-07-08 16:27 | DRG 208 ==
LOC: ED 06:30 → CC1 14:13 → 4A 07-04 20:03
PROVIDERS: ADMIT Internal Medicine; ATTEND Student in an Organized Health Care Education/Training Program
PROC: 5A1945Z Respiratory Ventilation, 24-96 Consecutive Hours (ICD-10-PCS; principal; 2021-07-02)
PROC: 0BH17EZ Insertion of Endotracheal Airway into Trachea, Via Natural or Artificial Opening (ICD-10-PCS; 2021-07-02)
PROC: 4A033R1 Measurement of Arterial Saturation, Peripheral, Percutaneous Approach (ICD-10-PCS; 2021-07-03)
DX: J96.01 Acute respiratory failure with hypoxia (principal); I46.9 Cardiac arrest, cause unspecified; G92.8 Other toxic encephalopathy; J44.1 Chronic obstructive pulmonary disease with (acute) exacerbation; J90 Pleural effusion, not elsewhere classified; E44.1 Mild protein-calorie malnutrition; K21.9 Gastro-esophageal reflux disease without esophagitis; Z20.822 Contact with and (suspected) exposure to COVID-19; I10 Essential (primary) hypertension; I25.2 Old myocardial infarction; M10.9 Gout, unspecified; M19.90 Unspecified osteoarthritis, unspecified site; I25.10 Atherosclerotic heart disease of native coronary artery without angina pectoris; E11.9 Type 2 diabetes mellitus without complications; Z90.49 Acquired absence of other specified parts of digestive tract; R00.1 Bradycardia, unspecified; Z87.891 Personal history of nicotine dependence; Z79.82 Long term (current) use of aspirin; Z68.24 Body mass index [BMI] 24.0-24.9, adult; Z85.46 Personal history of malignant neoplasm of prostate
CPT/HCPCS: 36415; 36600; 70450; 71045; 74018; 78452; 80048; 80053; 80307; 80320; 81001; 82140; 82550; 82553; 82803; 82962; 83036; 83735; 83880; 84100; 84145; 84439; 84443; 84484; 85025; 85027; 85610; 85730; 87070; 87205; 93005; 93017; 93306; 93970; 94002; 94640; 96365; 96375; 99285; G0378; J3490; A9502; C8929; G0480; J0330; J0456; J0696; J1200; J1644; J2001; J2060; J2250; J2785; J2920; J2930; J3010; J7030; U0003